=== PATIENT | female | born 1950 | race American Indian/Alaskan Native ===

== ENCOUNTER 2020-07-02 19:34 | Inpatient (IN) | payer MEDICARE ==
--- NOTE | 2020-07-02 22:39 | XRay Report ---
CHEST 2 VIEWS 2220 INDICATION / CLINICAL INFORMATION: Shortness of breath, chills COMPARISON: None available. FINDINGS: SUPPORT DEVICES: None. HEART / MEDIASTINUM: No significant abnormality. LUNGS / PLEURA: Pneumonic type infiltrate in a mostly interstitial pattern is seen in the right lower lobe. Left lung field is clear. No pneumothorax. ADDITIONAL FINDINGS: No significant additional findings. IMPRESSION: Evidence of right lower lobe pneumonia Signer Name: John Krishna MD Signed: 07/02/2020 10:34 PM Workstation Name: [email or web address]
[2020-07-02 23:14] LABS: Basophils % (Auto) 0.3 % (0.0-1.8); Hematocrit 41.7 % (30.3-42.9); Hemoglobin 13.5 gm/dl (10.1-14.3); Lymphocytes # (Auto) 1.6 K/mm3 (1.2-5.4); Lymphocytes % (Auto) 29.6 % (13.4-35.0); Mean Corpuscular HGB Conc 32 % (30-34); Mean Corpuscular Volume 81 fl (79-97); Monocytes # (Auto) 0.4 K/mm3 (0.0-0.8); Monocytes % (Auto) 8.3 % (0.0-7.3); Platelet Count 258 K/mm3 (140-440); Red Blood Count 5.16 M/mm3 (3.65-5.03); Red Cell Distribution Width 16.8 % (13.2-15.2)
[2020-07-02 23:32] LABS: Albumin 3.6 g/dL (3.9-5); Calcium 8.5 mg/dL (8.4-10.2)
[2020-07-03] MEDS ORDERED: cefTRIAXone/NS 2 GM/100 ML 2 GM/100 ML BAG IV ONE (02:54)
--- NOTE | 2020-07-03 03:01 | Emergency Department Report ---
ED Shortness of Breath HPI - General Chief Complaint: Dyspnea/Respdistress Stated Complaint: INDER Time Seen by Provider: 07/03/20 02:52 Source: patient Mode of arrival: Stretcher Limitations: No Limitations - History of Present Illness Initial Comments: 69-year-old obese -[place] female past medical history of diabetes, hypertension, COPD presents emergency department complaining of a 5 to 6-day history of progressively worsening shortness of breath which worsens with activity and exertion but reports no chest pain. Reports no cough no hemoptysis no hematemesis hematochezia has been feeling feverish with chills but no sweats. Reports no nausea, no vomiting reports no diarrhea. Reports no increased urinary frequency or dysuria MD Complaint: shortness of breath -: Gradual Severity: mild Quality: aching Consistency: constant Improves With: nothing Worsens With: exertion Known History Of: COPD, diabetes - Related Data Allergies Allergy/AdvReac Type Severity Reaction Status Date / Time No Known Allergies Allergy Unverified 07/02/20 21:21 ED Review of Systems ROS: Stated complaint: INDER Other details as noted in HPI Comment: All other systems reviewed and negative ED Past Medical Hx - Past Medical History Previous Medical History?: Yes Hx Hypertension: Yes Hx Diabetes: Yes Hx COPD: Yes - Surgical History Past Surgical History?: Yes Additional Surgical History: Tubal . Right knee. Right breast lumpe ctomy - Social History Smoking Status: Former Smoker Substance Use Type: None ED Physical Exam - General Limitations: No Limitations General appearance: alert, in no apparent distress, other (Patient appears to be uncomfortable but not toxic with mild distress noted) - Head Head exam: Present: atraumatic, normocephalic - Eye Eye exam: Present: normal appearance - ENT ENT exam: Present: mucous membranes moist - Neck Neck exam: Present: normal inspection, full ROM - Respiratory Respiratory exam: Present: normal lung sounds bilaterally, decreased breath sounds. Absent: respiratory distress - Cardiovascular Cardiovascular Exam: Present: normal rhythm, tachycardia. Absent: systolic murmur, diastolic murmur, rubs, gallop - GI/Abdominal GI/Abdominal exam: Present: soft, normal bowel sounds. Absent: distended, tenderness, guarding - Extremities Exam Extremities exam: Present: normal inspection - Back Exam Back exam: Present: normal inspection. Absent: CVA tenderness (R), CVA tenderne ss (L) - Neurological Exam Neurological exam: Present: alert, oriented X3, CN II-XII intact, normal gait - Psychiatric Psychiatric exam: Present: normal affect, normal mood - Skin Skin exam: Present: warm, dry, intact, normal color. Absent: rash ED Course Vital Signs 07/02/20 21:09 Temperature 99.0 F Pulse Rate 111 H Respiratory 18 Rate Blood Pressure 131/77 O2 Sat by Pulse 92 Oximetry - Consultations Consultation #1: 07/03/20 03:35 Case was discussed with the hospitalist Dr. Vincent whom had made aware of the x-ray report and exertional. Came back to see the patient plan is for admission hypoxemia ED Medical Decision Making - Lab Data Result diagrams: 07/02/20 22:37 07/02/20 22:37 - Radiology Data Radiology results: report reviewed Referring Physician:MANDO NUGENTPatient Name:YENI GARCIAPatient ID:[id number] of :[id number]:FemaleAccession:[id number] Date:[id number] Status:Finalized Findings [address] [address] XRay Report Signed Patient: YENI GARCIA MR#: [id number] : 1950 Acct:[id number] Age/Sex: 69 / F ADM Date: 07/02/20 Loc: ED Attending Dr: Ordering Physician: MANDO NUGENT MD Date of Service: 07/02/20 Procedure(s): XR chest routine 2V Accession Number(s): [id number] cc: MANDO NUGENT MD Fluoro Time In Minutes: CHEST 2 VIEWS 2220 INDICATION / CLINICAL INFORMATION: Shortness of breath, chills COMPARISON: None available. FINDINGS: SUPPORT DEVICES: None. HEART / MEDIASTINUM: No significant abnormality. LUNGS / PLEURA: Pneumonic type infiltrate in a mostly interstitial pattern is seen in the right lower lobe. Left lung field is clear. No pneumothorax. ADDITIONAL FINDINGS: No significant additional findings. IMPRESSION: Evidence of right lower lobe pneumonia Signer Name: John Krishna MD Signed: 07/02/2020 10:34 PM Workstation Name: [id number] Transcribed By: GJ Dictated By: John Krishna MD Electronically Authenticated By: John Krishna MD Signed Date/Time: 07/02/202233 DD/ 31 TD/TT: - Medical Decision Making This patient presents to the emergency department with fever and lower respiratory symptoms concerning for viral syndrome including flu and COVID-19. Patient has suspicion and is for COVID-19 infection. Differential diagnosis includes other viral causes of lower respiratory symptoms, pneumonia, asthma, bronchitis. Patient is well-appearing with acceptable vitals, lacks comorbidities admission and a reassuring physical examination and is safe to be discharged home nasal swab for COVID testing is recommended. Provide strict return precautions and instructions on self isolation/quarantine and anticipatory guidance. This patient presents with dyspnea most likely secondary to her right upper lobe pneumonia was likely is a secondary viral etiology likely coronavirus. Differential diagnosis includes asthma, bronchitis, pleuritic pulmonary issue, viral syndrome. Presentation not consistent with acute cardiac etiologies to include ACS , CHF, pericardial effusion/tamponade. Presentation not consistent with acute respiratory etiologies to include acute pulmonary embolism ( PERC negative), pneumothorax, asthma, COPD exacerbation, however infectious etiology such as pneumonia has been discovered. The presentation also not consistent with known cardiopulmonary causes to include toxic syndrome, metabolic etiology such as acidemia or electrolyte derangements, sepsis, neurologic causes. Critical care attestation.: If time is entered above; I have spent that time in minutes in the direct care of this critically ill patient, excluding procedure time. ED Disposition Clinical Impression: Hypoxemia, Pneumonia Disposition: OP ADMIT IP TO THIS HOSP Is pt being admited?: Yes Does the pt Need Aspirin: No Condition: Stable Instructions: Bacterial Pneumonia (ED) Referrals: PRIMARY CAREMD [Primary Care Provider] - 3-5 Days
[2020-07-03] MEDS ORDERED: dexAMETHasone 4 MG/ML VIAL IV ONE (03:09)
[2020-07-03] MEDS ORDERED: SODIUM CHLORIDE 0.9% 1000 ML 1,000 ML IV SCH (03:30)
--- NOTE | 2020-07-03 03:33 | History and Physical Report ---
History of Present Illness Date of examination: 07/03/20 Date of admission: 07/03/2020 Chief complaint: Shortness of Breath History of present illness: 39-year-old -[place] female with known history of diabetes mellitus, hypertension and COPD presenting to the emergency room today complaining of shortness of breath which has been ongoing for about 6 days. Shortness of breath is said to worsen with activity. Patient indicates that she had some low-grade fever with chills initially which has since subsided. She denies any chest pain, no headache or dizziness, no diaphoresis, no nausea vomiting, no abdominal pain, no diarrhea, no hematuria or dysuria. Patient denies any sick contacts and no recent travel. Denies any contact with anyone with COVID-19. Patient was tachycardic, tachypneic and slightly hypoxic on minimal exertion upon arrival in the emergency room. Work-up today reveals right lower lobe pneumonia on the chest x-ray. Patient is being admitted for pneumonia. We will also rule out for COVID-19. Past History Past Medical History: COPD, diabetes, hypertension Past Surgical History: Other (Tubal ligation,Right knee surgery,Right breast lumpectomy) Social history: smoking (Former smoker) Medications and Allergies Allergies Allergy/AdvReac Type Severity Reaction Status Date / Time No Known Allergies Allergy Unverified 07/02/20 21:21 Active Meds: Active Medications Azithromycin 500 mg/ Sodium (Chloride) 250 mls @ 250 mls/hr IV ONCE ONE; Protocol Stop: 07/03/20 04:44 Review of Systems Constitutional: no fever, no chills Ears, nose, mouth and throat: no nasal congestion, no sore throat Cardiovascular: no chest pain, no palpitations Respiratory: cough, shortness of breath, no wheezing Gastrointestinal: no abdominal pain, no nausea, no vomiting, no diarrhea Genitourinary Female: no pelvic pain, no flank pain, no dysuria, no hematuria Musculoskeletal: no neck pain, no low back pain Integumentary: no rash, no pruritis Neurological: no headaches, no confusion Psychiatric: no anxiety, no depression Exam - Constitutional Vitals: Temp Pulse Resp BP Pulse Ox 99.0 F 125 H 30 H 131/77 79 L 07/02/20 21:09 07/03/20 03:23 07/03/20 03:23 07/02/20 21:09 07/03/20 03:23 General appearance: Present: no acute distress, well-nourished, obese - EENT Eyes: Present: PERRL, EOM intact. Absent: scleral icterus ENT: hearing intact, clear oral mucosa, dentition normal - Neck Neck: Present: supple, normal ROM - Respiratory Respiratory effort: normal Respiratory: right: diminished - Cardiovascular Rhythm: regular Heart Sounds: Present: S1 & S2. Absent: gallop, systolic murmur, diastolic murmur, rub - Extremities Extremities: no ischemia, pulses intact, pulses symmetrical, No edema, normal temperature, normal color, Full ROM Peripheral Pulses: within normal limits - Abdominal General gastrointestinal: Present: soft, non-tender, non-distended, normal bowel sounds. Absent: mass - Integumentary Integumentary: Present: clear, warm, dry. Absent: rash - Musculoskeletal Musculoskeletal: strength equal bilaterally - Psychiatric Psychiatric: appropriate mood/affect, intact judgment & insight, memory intact, cooperative - Neurologic Neurologic: CNII-XII intact, no focal deficits, moves all extremities Results - Labs CBC & Chem 7: 07/02/20 22:37 07/02/20 22:37 Labs: Abnormal lab results 07/02/20 07/02/20 07/02/20 Range/Units 22:37 22:37 22:37 RBC 5.16 H (3.65-5.03) M/mm3 MCH 26 L (28-32) pg RDW 16.8 H (13.2-15.2) % [facility] % (Auto) 8.3 H (0.0-7.3) % Sodium 134 L (137-145) mmol/L Chloride 94.8 L (98-107) mmol/L Glucose 171 H (65-100) mg/dL POC Glucose (70-105) mg/dL Total Creatine Kinase 384 H (30-135) units/L Albumin 3.6 L (3.9-5) g/dL 07/03/20 Range/Units 03:12 RBC (3.65-5.03) M/mm3 MCH (28-32) pg RDW (13.2-15.2) % [facility] % (Auto) (0.0-7.3) % Sodium (137-145) mmol/L Chloride (98-107) mmol/L Glucose (65-100) mg/dL POC Glucose 166 H (70-105) mg/dL Total Creatine Kinase (30-135) units/L Albumin (3.9-5) g/dL Assessment and Plan - Patient Problems (1) Pneumonia Current Visit: Yes Status: Acute Plan to address problem: Patient placed on empiric IV antibiotics. We will await blood culture results. (2) Diabetes mellitus Current Visit: Yes Status: Acute Plan to address problem: We will monitor Accu-Cheks. (3) Hypoxemia Current Visit: Yes Status: Acute Plan to address problem: Possibly secondary to the underlying pneumonia. Patient placed on oxygen. We will keep O2 saturation greater than equal to 94%. (4) Hypertension Current Visit: Yes Status: Acute Plan to address problem: We will resume routine home medications and monitor vital signs closely. (5) DVT prophylaxis Current Visit: Yes Status: Acute Plan to address problem: Patient placed on subcutaneous Lovenox. (6) Full code status Current Visit: Yes Status: Acute Plan to address problem: Patient is a full code.
[2020-07-03] MEDS ORDERED: AZITHROMYCIN 500 MG in SODIUM CHLORIDE 0.9% 250ML 250 ML IV ONE (03:45)
[2020-07-03] MEDS ORDERED: DEXTROSE 50% IN WATER (25GM) 50 ML SYRINGE IV PRN (03:53)
[2020-07-03] MEDS ORDERED: ACETAMINOPHEN 325 MG TAB PO PRN (03:54)
[2020-07-03] MEDS ORDERED: ONDANSETRON 4 MG/2 ML INJ IV PRN (03:54)
[2020-07-03 05:30] LABS: C-Reactive Protein 9.3 mg/dL (0.00-1.30)
[2020-07-03] MEDS: INSULIN LISPRO 100 UNIT/ML VIAL 3 mL SUB-Q SCH ×4 (08:44→22:58)
--- NOTE | 2020-07-03 16:35 | Event Note ---
Date: 07/03/20 Patient 69-year-old female presents with 1 week history of shortness of breath progressively getting worse associated with some arthralgias myalgias low-grade fever. Work-up in ED patient found to be hypoxic and chest x-ray showed left lower lobe infiltrate consistent with pneumonia. Given patient symptoms and recent contacts increase suspicion for COVID-19 pneumonia. Will admit patient placed on broad-spectrum antibiotics azithromycin Rocephin and start dexamethasone. Follow-up culture data and follow-up COVID-19 serology. Continue supportive care with O2 and respiratory precautions. Nightly hemodynamically stable with 4 L of O2.
[2020-07-03] MEDS: ENOXAPARIN 40 MG/0.4 ML INJ SUB-Q SCH (22:59)
[2020-07-03] MEDS ORDERED: INSULIN LISPRO 100 UNIT/ML SUB-Q ONE (23:00)
[2020-07-04] MEDS ORDERED: ALBUTEROL 8.5 GM MDI INHALATION IH PRN (01:53)
[2020-07-04] MEDS ORDERED: methylPREDNISolone Sod Succinate 40 MG/1 ML INJ IV ONE (02:15)
[2020-07-04 02:51] LABS: ABG Base Excess 3.4 mmol/L (-2.0-3.0); ABG HCO3 27.5 mmol/L (20.0-26.0); ABG Methemoglobin 0.5 % (0.0-1.5); ABG Oxygen Saturation 93.6 % (95.0-99.0); ABG PCO2 39.9 mm Hg; ABG PH 7.456 pH Units (7.350-7.450); ABG PO2 60.7 mm Hg (80.0-90.0)
[2020-07-04] MEDS: INSULIN LISPRO 100 UNIT/ML VIAL 3 mL SUB-Q SCH ×4 (07:30→22:27)
[2020-07-04] MEDS: cefTRIAXone/NS 2 GM/100 ML 2 GM/100 ML BAG IV SCH (11:32)
[2020-07-04] MEDS: AZITHROMYCIN 250 MG TAB PO SCH (11:33)
[2020-07-04] MEDS: DEXAMETHASONE 4 MG TAB PO SCH (11:36)
--- NOTE | 2020-07-04 12:24 | Progress Note ---
Assessment and Plan - Patient Problems (1) Diabetes mellitus Current Visit: Yes Status: Acute Plan to address problem: Patient diabetes suboptimal control. We will add long-acting insulin. Patient on steroids expect to be somewhat high. Will still add long-acting insulin. (2) Hypertension Current Visit: Yes Status: Acute Plan to address problem: Patient currently has optimal control blood pressure. Continue antihypertensives. (3) Pneumonia due to COVID-19 virus Current Visit: Yes Status: Acute Plan to address problem: Patient COVID-19 pneumonia. Remains hypoxic. Patient risk factors include obesity hypoventilation syndrome and sleep apnea. Patient is on CPAP. Was able to wean patient down to 6 L. Will be a slow wean given patient's risk factors as stated above. (4) DVT prophylaxis Current Visit: Yes Status: Acute Plan to address problem: Currently on Lovenox. (5) Full code status Current Visit: Yes Status: Acute (6) Obesity (BMI 30-39.9) Current Visit: Yes Status: Acute Plan to address problem: This increases risk from COVID-19 pneumonia and COVID-19 itself. Patient educat ed on lifestyle changes upon discharge. Subjective Date of service: 07/04/20 Principal diagnosis: COVID-19 pneumonia Interval history: 6 69-year-old -[place] female with known history of diabetes mellitus, hypertension and COPD presenting to the emergency room today complaining of shortness of breath which has been ongoing for about 6 days. Shortness of breath is said to worsen with activity. Patient indicates that she had some low-grade fever with chills initially which has since subsided. She denies any chest pain, no headache or dizziness, no diaphoresis, no nausea vomiting, no abdominal pain, no diarrhea, no hematuria or dysuria. Patient denies any sick contacts and no recent travel. Denies any contact with anyone with COVID-19. Patient was tachycardic, tachypneic and slightly hypoxic on minimal exertion upon arrival in the emergency room. Work-up today reveals right lower lobe pneumonia on the chest x-ray. Patient is being admitted for pneumonia. We will also rule out for COVID-19. 07/04-patient was on CPAP last night. Now weaned down to 6 L of O2. We closely monitor patient's oxygen saturations with 6 L. Otherwise patient resting comfortably now in bed in prone position. Objective - Constitutional Vitals: Vital Signs - 12hr 07/04/20 07/04/20 07/04/20 00:45 01:27 01:30 Temperature 98.9 F Pulse Rate 99 H 98 H 97 H Respiratory 18 22 20 Rate Blood Pressure 126/78 Blood Pressure 139/89 [Left] O2 Sat by Pulse 95 89 92 Oximetry 07/04/20 07/04/20 07/04/20 04:31 05:10 05:59 Temperature 99.9 F H Pulse Rate 79 101 H Respiratory 28 H 30 H 22 Rate Blood Pressure 123/57 Blood Pressure [Left] O2 Sat by Pulse 97 94 Oximetry 07/04/20 10:00 Temperature Pulse Rate Respiratory Rate Blood Pressure Blood Pressure [Left] O2 Sat by Pulse 95 Oximetry General appearance: Present: no acute distress, well-nourished - EENT Eyes: PERRL, EOM intact ENT: hearing intact, clear oral mucosa Ears: bilateral: normal - Neck Neck: supple, normal ROM - Respiratory Respiratory effort: normal Respiratory: bilateral: diminished - Breasts Breasts: normal - Cardiovascular Rhythm: regular Heart Sounds: Present: S1 & S2. Absent: gallop, rub Extremities: pulses intact, No edema, normal color, Full ROM - Gastrointestinal General gastrointestinal: Present: soft, non-tender, non-distended, other (Obese) - Genitourinary Female genitourinary: normal - Integumentary Integumentary: clear, warm, dry - Musculoskeletal Musculoskeletal: 1, strength equal bilaterally - Neurologic Neurologic: moves all extremities - Psychiatric Psychiatric: memory intact, appropriate mood/affect, intact judgment & insight - Labs CBC & Chem 7: 07/02/20 22:37 07/03/20 03:14 Labs: Abnormal lab results 07/03/20 07/03/20 07/03/20 Range/Units 03:12 10:35 16:46 ABG pH (7.350-7.450) pH Units ABG pO2 (80.0-90.0) mm Hg ABG HCO3 (20.0-26.0) mmol/L ABG O2 Saturation (95.0-99.0) % ABG Base Excess (-2.0-3.0) mmol/L Oxyhemoglobin (95.0-99.0) % POC Glucose 166 H 188 H (70-105) mg/dL Coronavirus (PCR) Positive A (Negative) 07/03/20 07/04/20 07/04/20 Range/Units 22:33 02:44 11:39 ABG pH 7.456 H (7.350-7.450) pH Units ABG pO2 60.7 L (80.0-90.0) mm Hg ABG HCO3 27.5 H (20.0-26.0) mmol/L ABG O2 Saturation 93.6 L (95.0-99.0) % ABG Base Excess 3.4 H (-2.0-3.0) mmol/L Oxyhemoglobin 91.6 L (95.0-99.0) % POC Glucose 162 H 208 H (70-105) mg/dL Coronavirus (PCR) (Negative)
[2020-07-04] MEDS: NYSTATIN POWDER 15 GM TP SCH ×3 (12:50→22:29)
[2020-07-04] MEDS ORDERED: REMDESIVIR 100 MG VIAL IV ONE (14:00)
[2020-07-04] MEDS ORDERED: REMDESIVIR 200 MG in SODIUM CHLORIDE 0.9% 250ML 250 ML IV ONE (14:00)
[2020-07-04] MEDS: SODIUM CHLORIDE 0.9% 50 ML IVPB IV SCH ×2 (14:23→22:26)
[2020-07-04 14:38] LABS: C-Reactive Protein 4.8 mg/dL (0.00-1.30)
[2020-07-04] MEDS: INSULIN GLARGINE 100 UNITS/ML SUB-Q SCH (22:26)
[2020-07-04] MEDS: ENOXAPARIN 40 MG/0.4 ML INJ SUB-Q SCH (22:28)
[2020-07-05] MEDS: INSULIN LISPRO 100 UNIT/ML VIAL 3 mL SUB-Q SCH ×4 (07:30→22:39)
[2020-07-05] MEDS: cefTRIAXone/NS 2 GM/100 ML 2 GM/100 ML BAG IV SCH (10:03)
[2020-07-05] MEDS: NYSTATIN POWDER 15 GM TP SCH ×2 (10:04→21:40)
[2020-07-05] MEDS: AZITHROMYCIN 250 MG TAB PO SCH (10:04)
[2020-07-05] MEDS: DEXAMETHASONE 4 MG TAB PO SCH (10:04)
--- NOTE | 2020-07-05 10:08 | Progress Note ---
Assessment and Plan - Patient Problems (1) Diabetes mellitus Current Visit: Yes Status: Acute Plan to address problem: Patient diabetes suboptimal control. We will add long-acting insulin. Patient on steroids expect to be somewhat high. Will still add long-acting insulin. Much better with the addition of Lantus. Continue present management. (2) Hypertension Current Visit: Yes Status: Acute Plan to address problem: Patient currently has optimal control blood pressure. Continue antihypertensives. (3) Pneumonia due to COVID-19 virus Current Visit: Yes Status: Acute Plan to address problem: Patient's inflammatory markers have improved however hypoxia has not improved. This ensures me that patient had pulmonary complications prior to developing Cov id. This places patient more at risk with her sleep apnea, obesity hypoventilation syndrome. Will require O2 after discharge. Be more conservative with discharging. (4) DVT prophylaxis Current Visit: Yes Status: Acute Plan to address problem: Currently on Lovenox. (5) Full code status Current Visit: Yes Status: Acute (6) Obesity (BMI 30-39.9) Current Visit: Yes Status: Acute Plan to address problem: This increases risk from COVID-19 pneumonia and COVID-19 itself. Patient educated on lifestyle changes upon discharge. Subjective Date of service: 07/05/20 Principal diagnosis: COVID-19 pneumonia Interval history: 6 69-year-old -[place] female with known history of diabetes mellitus, hypertension and COPD presenting to the emergency room today complaining of shortness of breath which has been ongoing for about 6 days. Shortness of breath is said to worsen with activity. Patient indicates that she had some low-grade fever with chills initially which has since subsided. She denies any chest pain, no headache or dizziness, no diaphoresis, no nausea vomiting, no abdominal pain, no diarrhea, no hematuria or dysuria. Patient denies any sick contacts and no recent travel. Denies any contact with anyone with COVID-19. Patient was tachycardic, tachypneic and slightly hypoxic on minimal exertion upon arrival in the emergency room. Work-up today reveals right lower lobe pneumonia on the chest x-ray. Patient is being admitted for pneumonia. We will also rule out for COVID-19. 07/04-patient was on CPAP last night. Now weaned down to 6 L of O2. We closely monitor patient's oxygen saturations with 6 L. Otherwise patient resting comfortably now in bed in prone position. 07/05-patient appears to be doing worse than yesterday. Still able to wean down to 6 L however patient became more hypoxic. Overall conditions of morbid obesity, sleep apnea, obesity hypoventilation syndrome. Place patient at extreme risk. Patient is aware of evaluation all questions and concerns answered. Patient will require oxygen upon discharge. History patient was complained of shortness of breath even prior to Covid. Will most likely require home O2 prior to developing Covid. Objective - Constitutional Vitals: Vital Signs - 12hr 07/05/20 07/05/20 07/05/20 00:26 01:00 05:37 Temperature 98.9 F Pulse Rate 86 Respiratory 24 Rate Blood Pressure 110/67 145/89 O2 Sat by Pulse 94 97 Oximetry 07/05/20 07/05/20 07/05/20 05:46 06:01 06:16 Temperature Pulse Rate Respiratory Rate Blood Pressure 148/88 155/89 133/96 O2 Sat by Pulse Oximetry 07/05/20 07:01 Temperature Pulse Rate Respiratory Rate Blood Pressure 136/89 O2 Sat by Pulse Oximetry General appearance: Present: mild distress, well-nourished - EENT Eyes: PERRL, EOM intact ENT: hearing intact, clear oral mucosa Ears: bilateral: normal - Neck Neck: supple, normal ROM - Respiratory Respiratory effort: normal Respiratory: bilateral: CTA - Breasts Breasts: normal - Cardiovascular Rhythm: regular Heart Sounds: Present: S1 & S2. Absent: gallop, rub Extremities: pulses intact, No edema, normal color, Full ROM Extremity abnormal: other (Obese obese) - Gastrointestinal General gastrointestinal: Present: soft, non-tender, non-distended, normal bowel sounds, other - Genitourinary Female genitourinary: normal - Integumentary Integumentary: clear, warm, dry - Musculoskeletal Musculoskeletal: 1, strength equal bilaterally - Neurologic Neurologic: moves all extremities - Psychiatric Psychiatric: memory intact, appropriate mood/affect, intact judgment & insight - Labs CBC & Chem 7: 07/02/20 22:37 07/04/20 13:55 Labs: Abnormal lab results 07/04/20 07/04/20 07/04/20 Range/Units 11:39 13:55 13:55 D-Dimer 397.35 H (0-234) ng/mlDDU Glucose 188 H (65-100) mg/dL POC Glucose 208 H (70-105) mg/dL Ferritin (10.0-200.0) ng/mL Lactate Dehydrogenase 349 H (91-180) units/L C-Reactive Protein 4.80 H (0.00-1.30) mg/dL 07/04/20 07/04/20 07/04/20 Range/Units 13:55 17:17 22:01 D-Dimer (0-234) ng/mlDDU Glucose (65-100) mg/dL POC Glucose 139 H 143 H (70-105) mg/dL Ferritin 1691.0 H (10.0-200.0) ng/mL Lactate Dehydrogenase (91-180) units/L C-Reactive Protein (0.00-1.30) mg/dL
[2020-07-05] MEDS: SODIUM CHLORIDE 0.9% 50 ML IVPB IV SCH (20:50)
[2020-07-05] MEDS: REMDESIVIR 100 MG in SODIUM CHLORIDE 0.9% 250ML 250 ML IV SCH (20:50)
[2020-07-05] MEDS: ENOXAPARIN 40 MG/0.4 ML INJ SUB-Q SCH (21:39)
[2020-07-05] MEDS: INSULIN GLARGINE 100 UNITS/ML SUB-Q SCH (22:37)
[2020-07-06] MEDS: INSULIN LISPRO 100 UNIT/ML VIAL 3 mL SUB-Q SCH ×4 (07:30→23:00)
[2020-07-06] MEDS: cefTRIAXone/NS 2 GM/100 ML 2 GM/100 ML BAG IV SCH (10:03)
[2020-07-06] MEDS: AZITHROMYCIN 250 MG TAB PO SCH (10:03)
[2020-07-06] MEDS: NYSTATIN POWDER 15 GM TP SCH ×2 (10:04→23:10)
[2020-07-06] MEDS: DEXAMETHASONE 4 MG TAB PO SCH (10:06)
--- NOTE | 2020-07-06 12:11 | Progress Note ---
Assessment and Plan Assessment and plan: -- Diabetes mellitus Current Visit: Yes Status: Acute Plan to address problem: Accu-Chek sliding scale coverage ADA diet Long-acting insulin as needed, check A1c Diabetic education, diabetic diet counseling Monitor closely and adjust management as needed -- Hypertension Current Visit: Yes Status: Acute Plan to address problem: Patient currently has optimal control blood pressure. Continue antihypertensives. -- Pneumonia due to COVID-19 virus Current Visit: Yes Status: Acute Plan to address problem: Patient's inflammatory markers have improved however hypoxia has not improved. This ensures me that patient had pulmonary complications prior to developing Covid. This places patient more at risk with her sleep apnea, obesity hypoventilation syndrome. Will require O2 after discharge. Be more conservative with discharging. --DVT prophylaxis Current Visit: Yes Status: Acute Plan to address problem: Currently on Lovenox. -- Full code status Current Visit: Yes Status: Acute -- Obesity (BMI 30-39.9) Current Visit: Yes Status: Acute Plan to address problem: This increases risk from COVID-19 pneumonia and COVID-19 itself. Patient educated on lifestyle changes upon discharge. Plan of care reviewed with the patient and her nurse Hospitalist Physical - Constitutional Vitals: Temp Pulse Resp BP Pulse Ox 97.9 F 120 H 30 H 167/108 92 07/06/20 05:24 07/06/20 08:46 07/06/20 08:46 07/06/20 05:24 07/06/20 08:46 General appearance: Present: mild distress, well-nourished, obese (Morbidly obese) - EENT Eyes: Present: PERRL, EOM intact - Neck Neck: Present: supple, normal ROM - Respiratory Respiratory effort: normal Respiratory: bilateral: diminished, negative: rales, rhonchi, wheezing - Cardiovascular Rhythm: regular Heart Sounds: Present: S1 & S2 - Extremities Extremities: no ischemia, No edema - Abdominal General gastrointestinal: soft, non-tender, non-distended, normal bowel sounds - Integumentary Integumentary: Present: clear, warm - Psychiatric Psychiatric: appropriate mood/affect, cooperative - Neurologic Neurologic: moves all extremities Results - Labs CBC & Chem 7: 07/02/20 22:37 07/04/20 13:55 Labs: Laboratory Last Values WBC 5.3 K/mm3 (4.5-11.0) 07/02/20 22:37 RBC 5.16 M/mm3 (3.65-5.03) H 07/02/20 22:37 Hgb 13.5 gm/dl (10.1-14.3) 07/02/20 22:37 Hct 41.7 % (30.3-42.9) 07/02/20 22:37 MCV 81 fl (79-97) 07/02/20 22:37 MCH 26 pg (28-32) L 07/02/20 22:37 MCHC 32 % (30-34) 07/02/20 22:37 RDW 16.8 % (13.2-15.2) H 07/02/20 22:37 Plt Count 258 K/mm3 (140-440) 07/02/20 22:37 Lymph % (Auto) 29.6 % (13.4-35.0) 07/02/20 22:37 [place] % (Auto) 8.3 % (0.0-7.3) H 07/02/20 22:37 Eos % (Auto) 0.0 % (0.0-4.3) 07/02/20 22:37 Baso % (Auto) 0.3 % (0.0-1.8) 07/02/20 22:37 Lymph # (Auto) 1.6 K/mm3 (1.2-5.4) 07/02/20 22:37 [place] # (Auto) 0.4 K/mm3 (0.0-0.8) 07/02/20 22:37 Eos # (Auto) 0.0 K/mm3 (0.0-0.4) 07/02/20 22:37 Baso # (Auto) 0.0 K/mm3 (0.0-0.1) 07/02/20 22:37 Seg Neutrophils % 61.8 % (40.0-70.0) 07/02/20 22:37 Seg Neutrophils # 3.3 K/mm3 (1.8-7.7) 07/02/20 22:37 D-Dimer 397.35 ng/mlDDU (0-234) H 07/04/20 13:55 ABG pH 7.456 pH Units (7.350-7.450) H 07/04/20 02:44 ABG pCO2 39.9 mm Hg 07/04/20 02:44 ABG pO2 60.7 mm Hg (80.0-90.0) L 07/04/20 02:44 ABG HCO3 27.5 mmol/L (20.0-26.0) H 07/04/20 02:44 ABG O2 Saturation 93.6 % (95.0-99.0) L 07/04/20 02:44 ABG O2 Content 16.4 (0.0-44) 07/04/20 02:44 ABG Base Excess 3.4 mmol/L (-2.0-3.0) H 07/04/20 02:44 ABG Hemoglobin 12.7 gm/dl (12.0-16.0) 07/04/20 02:44 ABG Carboxyhemoglobin 1.7 % (0.0-5.0) 07/04/20 02:44 ABG Methemoglobin 0.5 % (0.0-1.5) 07/04/20 02:44 Oxyhemoglobin 91.6 % (95.0-99.0) L 07/04/20 02:44 FiO2 32 % 07/04/20 02:44 Sodium 134 mmol/L (137-145) L 07/02/20 22:37 Potassium 4.4 mmol/L (3.6-5.0) 07/02/20 22:37 Chloride 94.8 mmol/L (98-107) L 07/02/20 22:37 Carbon Dioxide 26 mmol/L (22-30) 07/02/20 22:37 Anion Gap 18 mmol/L 07/02/20 22:37 BUN 15 mg/dL (7-17) 07/02/20 22:37 Creatinine 1.2 mg/dL (0.6-1.2) 07/02/20 22:37 Estimated GFR 54 ml/min 07/02/20 22:37 BUN/Creatinine Ratio 13 % 07/02/20 22:37 Glucose 188 mg/dL (65-100) H 07/04/20 13:55 POC Glucose 106 mg/dL (70-105) H 07/06/20 11:49 Calcium 8.5 mg/dL (8.4-10.2) 07/02/20 22:37 Magnesium 1.70 mg/dL (1.7-2.3) 07/02/20 22:37 Ferritin 1691.0 ng/mL (10.0-200.0) H 07/04/20 13:55 Total Bilirubin 0.50 mg/dL (0.1-1.2) 07/02/20 22:37 AST 39 units/L (5-40) 07/02/20 22:37 ALT 27 units/L (7-56) 07/02/20 22:37 Alkaline Phosphatase 78 units/L (35-129) 07/02/20 22:37 Lactate Dehydrogenase 349 units/L (91-180) H 07/04/20 13:55 Total Creatine Kinase 384 units/L (30-135) H 07/02/20 22:37 C-Reactive Protein 4.80 mg/dL (0.00-1.30) H 07/04/20 13:55 Total Protein 7.3 g/dL (6.3-8.2) 07/02/20 22:37 Albumin 3.6 g/dL (3.9-5) L 07/02/20 22:37 Albumin/Globulin Ratio 1.0 % 07/02/20 22:37 Procalcitonin < 0.05 ng/mL (<0.15) 07/04/20 13:55 Coronavirus (PCR) Positive (Negative) A 07/03/20 10:35 Castaneda/IV: Voiding Method Bedpan IV Catheter Type [Right Hand] INT / Saline Lock IV Catheter Type [Left Hand] INT / Saline Lock Active Medications - Current Medications Current Medications: Generic Name Dose Route Start Last Admin Trade Name Freq PRN Reason Stop Dose Admin Acetaminophen 650 mg 07/03/20 03:54 Acetaminophen 325 Mg Tab PO Q4H PRN Pain MILD(1-3)/Fever >100.5/REDMOND Albuterol 2 puff 07/06/20 10:00 Albuterol 8.5 Gm Mdi Inhalation IH BIDRT KRISTEN Azithromycin 500 mg 07/04/20 11:00 07/06/20 10:03 Azithromycin 250 Mg Tab PO 07/07/20 10:01 500 mg QDAY KRISTEN Administration Dexamethasone 6 mg 07/04/20 11:00 07/06/20 10:06 Dexamethasone 4 Mg Tab PO 07/12/20 10:01 6 mg DAILY KRISTEN Administration Dextrose 0 ml 07/03/20 03:53 Dextrose 50% In Water (25gm) 50 Ml Syringe IV Q30MIN PRN Hypoglycemia Protocol Enoxaparin Sodium 40 mg 07/03/20 22:00 07/05/20 21:39 Enoxaparin 40 Mg/0.4 Ml Inj SUB-Q 40 mg QDAY@2200 KRISTEN Administration Protocol Ceftriaxone Sodium 2 gm in 100 mls @ 200 mls/hr 07/04/20 11:00 07/06/20 10:03 Rocephin/Ns 2 Gm/100 Ml IV 200 mls/hr Q24HR KRISTEN Administration Protocol REMDESIVIR 100 mg/ Sodium 250 mls @ 500 mls/hr 07/05/20 21:00 07/05/20 20:50 Chloride IV 07/08/20 21:29 500 mls/hr Q24HR@2100 KRISTEN Administration Insulin Glargine 10 units 07/04/20 22:00 07/05/20 22:37 Insulin Glargine 100 Units/Ml SUB-Q 10 units QHS KRISTEN Administration Insulin Human Lispro 0 unit 07/03/20 07:30 07/06/20 07:30 Insulin Lispro 100 Unit/Ml Vial 3 Ml SUB-Q Not Given ACHS [facility] Protocol Nystatin 1 applic 07/03/20 15:00 07/06/20 10:04 Nystatin Powder 15 Gm TP 1 applic BID KRISTEN Administration Ondansetron HCl 4 mg 07/03/20 03:54 Ondansetron 4 Mg/2 Ml Inj IV Q8H PRN Nausea And Vomiting Sodium Chloride 10 ml 07/03/20 10:00 07/06/20 10:03 Sodium Chloride 0.9% 10 Ml Flush Syringe IV 10 ml BID KRISTEN Administration Sodium Chloride 10 ml 07/03/20 03:54 Sodium Chloride 0.9% 10 Ml Flush Syringe IV PRN PRN LINE FLUSH Sodium Chloride 50 ml 07/04/20 14:00 07/05/20 20:50 Sodium Chloride 0.9% 50 Ml Ivpb IV 07/07/20 21:01 50 ml Q24HR@2100 KRISTEN Administration Nutrition/Malnutrition Assess - Dietary Evaluation Nutrition/Malnutrition Findings: Nutrition Notes Start: 07/03/20 10:41 Freq: Status: Active Protocol: Document 07/03/20 10:41 KRYSTINA (Rec: 07/03/20 10:44 KRYSTINA [id number]) Nutrition Notes Need for Assessment generated from: MD Order Initial or Follow up Brief Note Current Diagnosis COPD,Diabetes,Hypertension Other Pertinent Diagnosis pneumonia Current Diet Regular Subjective/Other Information MD order for diet education. Pt on hold in ED. Nutrition Intervention Change Diet Order: Cardiac, Consistent CHO Follow-Up By: 07/09/20 Additional Comments FU for diet education
[2020-07-06] MEDS: ALBUTEROL 8.5 GM MDI INHALATION IH SCH ×2 (14:59→22:55)
[2020-07-06] MEDS: SODIUM CHLORIDE 0.9% 50 ML IVPB IV SCH (22:56)
[2020-07-06] MEDS: REMDESIVIR 100 MG in SODIUM CHLORIDE 0.9% 250ML 250 ML IV SCH (22:56)
[2020-07-06] MEDS: ENOXAPARIN 40 MG/0.4 ML INJ SUB-Q SCH (22:57)
[2020-07-06] MEDS: INSULIN GLARGINE 100 UNITS/ML SUB-Q SCH (22:57)
[2020-07-07 06:42] LABS: Alanine Aminotransferase 34 units/L (7-56); Albumin 3.2 g/dL (3.9-5); BUN/Creatinine Ratio 18; Blood Urea Nitrogen 11 mg/dL (7-17); Calcium 8.5 mg/dL (8.4-10.2); Hemolysis Index 2
[2020-07-07] MEDS: INSULIN LISPRO 100 UNIT/ML VIAL 3 mL SUB-Q SCH ×4 (07:30→21:33)
[2020-07-07] MEDS: DEXAMETHASONE 4 MG TAB PO SCH (09:46)
[2020-07-07] MEDS: AZITHROMYCIN 250 MG TAB PO SCH (09:47)
[2020-07-07] MEDS: cefTRIAXone/NS 2 GM/100 ML 2 GM/100 ML BAG IV SCH (09:47)
[2020-07-07] MEDS: NYSTATIN POWDER 15 GM TP SCH ×2 (09:48→21:06)
--- NOTE | 2020-07-07 10:56 | Progress Note ---
Assessment and Plan Assessment and plan: -- Pneumonia due to COVID-19 virus Current Visit: Yes Status: Acute Plan to address problem: Contact and droplet isolation Continue dexamethasone for total 10 days Continue remdesivir complete 4 doses Prone position as tolerated Closely monitor inflammatory markers ID consult, home oxygen evaluation Discharge planning when medically stable Patient is severely hypoxemic requiring high flow oxygen Consult pulmonary --Severe hypoxemia; secondary to pneumonia due to Covid Oxygen titrate O2 sats more than 90%, on high flow oxygen 30L /100 %/93 O2sat Nebulizers, prone position, pulmonary consult --Type II diabetes mellitus Current Visit: Yes Status: Acute Plan to address problem: Accu-Chek sliding scale coverage ADA diet Long-acting insulin as needed, check A1c Diabetic education, diabetic diet counseling Monitor closely and adjust management as needed -- Hypertension Current Visit: Yes Status: Acute Plan to address problem: Patient currently has optimal control blood pressure. Continue antihypertensives. --DVT prophylaxis Current Visit: Yes Status: Acute Plan to address problem: Currently on Lovenox. -- Full code status Current Visit: Yes Status: Acute --Morbid obesity (BMI 48.9) Current Visit: Yes Status: Acute Plan to address problem: This increases risk from COVID-19 pneumonia and COVID-19 itself. Patient educated on lifestyle changes upon discharge. Plan of care reviewed with the patient and her nurse Patient is morbidly obese , severe COVID-19 sepsis ,critically ill In severe distress requiring high flow oxygen, very poor prognosis History Interval history: I have seen and examined the patient at the bedside Patient feels slightly better On high flow oxygen and BiPAP Vital signs noted Patient is in mild distress Hospitalist Physical - Constitutional Vitals: Temp Pulse Resp BP Pulse Ox 98.2 F 94 H 16 143/85 93 07/07/20 04:58 07/07/20 04:58 07/07/20 04:58 07/07/20 04:58 07/07/20 09:12 General appearance: Present: mild distress, well-nourished, obese (Morbidly obese) - EENT Eyes: Present: PERRL, EOM intact - Neck Neck: Present: supple, normal ROM - Respiratory Respiratory effort: normal Respiratory: bilateral: diminished, rhonchi, negative: rales, wheezing - Cardiovascular Rhythm: regular Heart Sounds: Present: S1 & S2 - Extremities Extremities: no ischemia, No edema - Abdominal General gastrointestinal: soft, non-tender, non-distended, normal bowel sounds - Integumentary Integumentary: Present: clear, warm - Psychiatric Psychiatric: appropriate mood/affect, cooperative - Neurologic Neurologic: CNII-XII intact, moves all extremities Results - Labs CBC & Chem 7: 07/02/20 22:37 07/08/20 05:16 Labs: Laboratory Last Values WBC 5.3 K/mm3 (4.5-11.0) 07/02/20 22:37 RBC 5.16 M/mm3 (3.65-5.03) H 07/02/20 22:37 Hgb 13.5 gm/dl (10.1-14.3) 07/02/20 22:37 Hct 41.7 % (30.3-42.9) 07/02/20 22:37 MCV 81 fl (79-97) 07/02/20 22:37 MCH 26 pg (28-32) L 07/02/20 22:37 MCHC 32 % (30-34) 07/02/20 22:37 RDW 16.8 % (13.2-15.2) H 07/02/20 22:37 Plt Count 258 K/mm3 (140-440) 07/02/20 22:37 Lymph % (Auto) 29.6 % (13.4-35.0) 07/02/20 22:37 [place] % (Auto) 8.3 % (0.0-7.3) H 07/02/20 22:37 Eos % (Auto) 0.0 % (0.0-4.3) 07/02/20 22:37 Baso % (Auto) 0.3 % (0.0-1.8) 07/02/20 22:37 Lymph # (Auto) 1.6 K/mm3 (1.2-5.4) 07/02/20 22:37 [place] # (Auto) 0.4 K/mm3 (0.0-0.8) 07/02/20 22:37 Eos # (Auto) 0.0 K/mm3 (0.0-0.4) 07/02/20 22:37 Baso # (Auto) 0.0 K/mm3 (0.0-0.1) 07/02/20 22:37 Seg Neutrophils % 61.8 % (40.0-70.0) 07/02/20 22:37 Seg Neutrophils # 3.3 K/mm3 (1.8-7.7) 07/02/20 22:37 D-Dimer 397.35 ng/mlDDU (0-234) H 07/04/20 13:55 ABG pH 7.456 pH Units (7.350-7.450) H 07/04/20 02:44 ABG pCO2 39.9 mm Hg 07/04/20 02:44 ABG pO2 60.7 mm Hg (80.0-90.0) L 07/04/20 02:44 ABG HCO3 27.5 mmol/L (20.0-26.0) H 07/04/20 02:44 ABG O2 Saturation 93.6 % (95.0-99.0) L 07/04/20 02:44 ABG O2 Content 16.4 (0.0-44) 07/04/20 02:44 ABG Base Excess 3.4 mmol/L (-2.0-3.0) H 07/04/20 02:44 ABG Hemoglobin 12.7 gm/dl (12.0-16.0) 07/04/20 02:44 ABG Carboxyhemoglobin 1.7 % (0.0-5.0) 07/04/20 02:44 ABG Methemoglobin 0.5 % (0.0-1.5) 07/04/20 02:44 Oxyhemoglobin 91.6 % (95.0-99.0) L 07/04/20 02:44 FiO2 32 % 07/04/20 02:44 Sodium 138 mmol/L (137-145) 07/07/20 05:19 Potassium 4.4 mmol/L (3.6-5.0) 07/07/20 05:19 Chloride 99.2 mmol/L (98-107) 07/07/20 05:19 Carbon Dioxide 31 mmol/L (22-30) H 07/07/20 05:19 Anion Gap 12 mmol/L 07/07/20 05:19 BUN 11 mg/dL (7-17) 07/07/20 05:19 Creatinine 0.6 mg/dL (0.6-1.2) 07/07/20 05:19 Estimated GFR > 60 ml/min 07/07/20 05:19 BUN/Creatinine Ratio 18 % 07/07/20 05:19 Glucose 122 mg/dL (65-100) H 07/07/20 05:19 POC Glucose 84 mg/dL (70-105) 07/07/20 07:44 Calcium 8.5 mg/dL (8.4-10.2) 07/07/20 05:19 Magnesium 1.70 mg/dL (1.7-2.3) 07/02/20 22:37 Ferritin 1691.0 ng/mL (10.0-200.0) H 07/04/20 13:55 Total Bilirubin 0.40 mg/dL (0.1-1.2) 07/07/20 05:19 AST 38 units/L (5-40) 07/07/20 05:19 ALT 34 units/L (7-56) 07/07/20 05:19 Alkaline Phosphatase 74 units/L (35-129) 07/07/20 05:19 Lactate Dehydrogenase 349 units/L (91-180) H 07/04/20 13:55 Total Creatine Kinase 384 units/L (30-135) H 07/02/20 22:37 C-Reactive Protein 4.80 mg/dL (0.00-1.30) H 07/04/20 13:55 Total Protein 6.8 g/dL (6.3-8.2) 07/07/20 05:19 Albumin 3.2 g/dL (3.9-5) L 07/07/20 05:19 Albumin/Globulin Ratio 0.9 % 07/07/20 05:19 Procalcitonin < 0.05 ng/mL (<0.15) 07/04/20 13:55 Coronavirus (PCR) Positive (Negative) A 07/03/20 10:35 Castaneda/IV: Voiding Method Bedside Commode IV Catheter Type [Right Hand] INT / Saline Lock IV Catheter Type [Left Hand] INT / Saline Lock Active Medications - Current Medications Current Medications: Generic Name Dose Route Start Last Admin Trade Name Freq PRN Reason Stop Dose Admin Acetaminophen 650 mg 07/03/20 03:54 Acetaminophen 325 Mg Tab PO Q4H PRN Pain MILD(1-3)/Fever >100.5/REDMOND Albuterol 2 puff 07/06/20 10:00 07/06/20 22:55 Albuterol 8.5 Gm Mdi Inhalation IH 2 puff BIDRT KRISTEN Administration Dexamethasone 6 mg 07/04/20 11:00 07/07/20 09:46 Dexamethasone 4 Mg Tab PO 07/12/20 10:01 6 mg DAILY KRISTEN Administration Dextrose 0 ml 07/03/20 03:53 Dextrose 50% In Water (25gm) 50 Ml Syringe IV Q30MIN PRN Hypoglycemia Protocol Enoxaparin Sodium 40 mg 07/03/20 22:00 07/06/20 22:57 Enoxaparin 40 Mg/0.4 Ml Inj SUB-Q 40 mg QDAY@2200 KRISTEN Administration Protocol REMDESIVIR 100 mg/ Sodium 250 mls @ 500 mls/hr 07/05/20 21:00 07/06/20 22:56 Chloride IV 07/08/20 21:29 500 mls/hr Q24HR@2100 KRISTEN Administration Insulin Glargine 10 units 07/04/20 22:00 07/06/20 22:57 Insulin Glargine 100 Units/Ml SUB-Q 10 units QHS KRISTEN Administration Insulin Human Lispro 0 unit 07/03/20 07:30 07/07/20 07:30 Insulin Lispro 100 Unit/Ml Vial 3 Ml SUB-Q Not Given ACHS [facility] Protocol Nystatin 1 applic 07/03/20 15:00 07/07/20 09:48 Nystatin Powder 15 Gm TP 1 applic BID KRISTEN Administration Ondansetron HCl 4 mg 07/03/20 03:54 Ondansetron 4 Mg/2 Ml Inj IV Q8H PRN Nausea And Vomiting Sodium Chloride 10 ml 07/03/20 10:00 07/07/20 09:47 Sodium Chloride 0.9% 10 Ml Flush Syringe IV 10 ml BID KRISTEN Administration Sodium Chloride 10 ml 07/03/20 03:54 Sodium Chloride 0.9% 10 Ml Flush Syringe IV PRN PRN LINE FLUSH Sodium Chloride 50 ml 07/04/20 14:00 07/06/20 22:56 Sodium Chloride 0.9% 50 Ml Ivpb IV 07/07/20 21:01 50 ml Q24HR@2100 KRISTEN Administration Nutrition/Malnutrition Assess - Dietary Evaluation Nutrition/Malnutrition Findings: Nutrition Notes Start: 07/03/20 10:41 Freq: Status: Active Protocol: Document 07/03/20 10:41 KRYSTINA (Rec: 07/03/20 10:44 KRYSTINA [id number]) Nutrition Notes Need for Assessment generated from: MD Order Initial or Follow up Brief Note Current Diagnosis COPD,Diabetes,Hypertension Other Pertinent Diagnosis pneumonia Current Diet Regular Subjective/Other Information MD order for diet education. Pt on hold in ED. Nutrition Intervention Change Diet Order: Cardiac, Consistent CHO Follow-Up By: 07/09/20 Additional Comments FU for diet education
[2020-07-07] MEDS: ALBUTEROL 8.5 GM MDI INHALATION IH SCH ×2 (14:14→21:02)
[2020-07-07] MEDS: SODIUM CHLORIDE 0.9% 50 ML IVPB IV SCH (21:03)
[2020-07-07] MEDS: REMDESIVIR 100 MG in SODIUM CHLORIDE 0.9% 250ML 250 ML IV SCH (21:03)
[2020-07-07] MEDS: ENOXAPARIN 40 MG/0.4 ML INJ SUB-Q SCH (21:04)
[2020-07-07] MEDS: INSULIN GLARGINE 100 UNITS/ML SUB-Q SCH (21:33)
[2020-07-08 06:23] LABS: Alanine Aminotransferase 29 units/L (7-56); Albumin 3.2 g/dL (3.9-5); Blood Urea Nitrogen 10 mg/dL (7-17); Calcium 8.8 mg/dL (8.4-10.2); Hemolysis Index 5
[2020-07-08 06:27] LABS: BUN/Creatinine Ratio 17
[2020-07-08] MEDS: INSULIN LISPRO 100 UNIT/ML VIAL 3 mL SUB-Q SCH ×4 (07:30→22:40)
[2020-07-08] MEDS: ALBUTEROL 8.5 GM MDI INHALATION IH SCH ×2 (08:48→21:54)
[2020-07-08] MEDS: DEXAMETHASONE 4 MG TAB PO SCH (09:21)
[2020-07-08] MEDS: NYSTATIN POWDER 15 GM TP SCH ×2 (12:44→22:42)
[2020-07-08 16:31] LABS: C-Reactive Protein 5.1 mg/dL (0.00-1.30)
--- NOTE | 2020-07-08 18:40 | Progress Note ---
Assessment and Plan Assessment and plan: --Severe hypoxemia; secondary to pneumonia due to Covid Oxygen titrate O2 sats more than 90%, on high flow oxygen 30L /100 %/93 O2sat Nebulizers, prone position, pulmonary consulted -- Pneumonia due to COVID-19 virus Current Visit: Yes Status: Acute Plan to address problem: Contact and droplet isolation Continue dexamethasone for total 10 days Continue remdesivir complete 4 doses Prone position as tolerated Closely monitor inflammatory markers home oxygen evaluation Discharge planning when medically stable Patient is severely hypoxemic requiring high flow oxygen ID consult,Consult pulmonary --Severe sepsis secondary to Covid pneumonia Current Visit: Yes Status: Acute . Plan to address problem: Tachycardia, fever, pneumonia on chest x-ray --Type II diabetes mellitus Current Visit: Yes Status: Acute . Plan to address problem: Accu-Chek sliding scale coverage ADA diet Long-acting insulin as needed, check A1c Diabetic education, diabetic diet counseling Monitor closely and adjust management as needed -- Hypertension Current Visit: Yes Status: Acute Plan to address problem: Patient currently has optimal control blood pressure. Continue antihypertensives. --DVT prophylaxis Current Visit: Yes Status: Acute Plan to address problem: Currently on Lovenox. -- Full code status Current Visit: Yes Status: Acute --Morbid obesity (BMI 48.9) Current Visit: Yes Status: Acute Plan to address problem: This increases risk from COVID-19 pneumonia and COVID-19 itself. Patient educated on lifestyle changes upon discharge. Plan of care reviewed with the patient and her nurse Patient is morbidly obese , severe COVID-19 sepsis ,critically ill In severe distress requiring high flow oxygen, very poor prognosis History Interval history: I have seen the patient in his room from a distance Isolation and PPE protocols strictly followed Patient continues to require high flow oxygen Morbidly obese, in mild distress Vital signs noted Hospitalist Physical - Constitutional Vitals: Temp Pulse Resp BP Pulse Ox 98.6 F 105 H 24 125/57 94 07/08/20 16:55 07/08/20 16:55 07/08/20 16:55 07/08/20 16:55 07/08/20 18:34 General appearance: Present: mild distress, well-nourished, obese (Morbidly obese) - EENT ENT: other (No physical exam to reduce risk of transmission) - Neck Neck: Present: other (No physical exam to reduce risk of transmission) - Respiratory Respiratory effort: other (No physical exam to reduce risk of transmission) - Extremities Extremity abnormal: other (No physical exam to reduce risk of transmission) - Abdominal General gastrointestinal: other (No physical exam to reduce risk of transm ission) - Psychiatric Psychiatric: other (No physical exam to reduce risk of transmission) - Neurologic Neurologic: other (.No physical exam to reduce risk of transmission) Results - Labs CBC & Chem 7: 07/02/20 22:37 07/08/20 05:16 Labs: Laboratory Last Values WBC 5.3 K/mm3 (4.5-11.0) 07/02/20 22:37 RBC 5.16 M/mm3 (3.65-5.03) H 07/02/20 22:37 Hgb 13.5 gm/dl (10.1-14.3) 07/02/20 22:37 Hct 41.7 % (30.3-42.9) 07/02/20 22:37 MCV 81 fl (79-97) 07/02/20 22:37 MCH 26 pg (28-32) L 07/02/20 22:37 MCHC 32 % (30-34) 07/02/20 22:37 RDW 16.8 % (13.2-15.2) H 07/02/20 22:37 Plt Count 258 K/mm3 (140-440) 07/02/20 22:37 Lymph % (Auto) 29.6 % (13.4-35.0) 07/02/20 22:37 [place] % (Auto) 8.3 % (0.0-7.3) H 07/02/20 22:37 Eos % (Auto) 0.0 % (0.0-4.3) 07/02/20 22:37 Baso % (Auto) 0.3 % (0.0-1.8) 07/02/20 22:37 Lymph # (Auto) 1.6 K/mm3 (1.2-5.4) 07/02/20 22:37 [place] # (Auto) 0.4 K/mm3 (0.0-0.8) 07/02/20 22:37 Eos # (Auto) 0.0 K/mm3 (0.0-0.4) 07/02/20 22:37 Baso # (Auto) 0.0 K/mm3 (0.0-0.1) 07/02/20 22:37 Seg Neutrophils % 61.8 % (40.0-70.0) 07/02/20 22:37 Seg Neutrophils # 3.3 K/mm3 (1.8-7.7) 07/02/20 22:37 D-Dimer 801.22 ng/mlDDU (0-234) H 07/08/20 15:03 ABG pH 7.456 pH Units (7.350-7.450) H 07/04/20 02:44 ABG pCO2 39.9 mm Hg 07/04/20 02:44 ABG pO2 60.7 mm Hg (80.0-90.0) L 07/04/20 02:44 ABG HCO3 27.5 mmol/L (20.0-26.0) H 07/04/20 02:44 ABG O2 Saturation 93.6 % (95.0-99.0) L 07/04/20 02:44 ABG O2 Content 16.4 (0.0-44) 07/04/20 02:44 ABG Base Excess 3.4 mmol/L (-2.0-3.0) H 07/04/20 02:44 ABG Hemoglobin 12.7 gm/dl (12.0-16.0) 07/04/20 02:44 ABG Carboxyhemoglobin 1.7 % (0.0-5.0) 07/04/20 02:44 ABG Methemoglobin 0.5 % (0.0-1.5) 07/04/20 02:44 Oxyhemoglobin 91.6 % (95.0-99.0) L 07/04/20 02:44 FiO2 32 % 07/04/20 02:44 Sodium 137 mmol/L (137-145) 07/08/20 05:16 Potassium 4.4 mmol/L (3.6-5.0) 07/08/20 05:16 Chloride 99.2 mmol/L (98-107) 07/08/20 05:16 Carbon Dioxide 31 mmol/L (22-30) H 07/08/20 05:16 Anion Gap 11 mmol/L 07/08/20 05:16 BUN 10 mg/dL (7-17) 07/08/20 05:16 Creatinine 0.6 mg/dL (0.6-1.2) 07/08/20 05:16 Estimated GFR > 60 ml/min 07/08/20 05:16 BUN/Creatinine Ratio 17 % 07/08/20 05:16 Glucose 112 mg/dL (65-100) H 07/08/20 05:16 POC Glucose 241 mg/dL (70-105) H 07/08/20 16:55 Hemoglobin A1c 7.2 % (4-6) H 07/08/20 16:59 Calcium 8.8 mg/dL (8.4-10.2) 07/08/20 05:16 Magnesium 1.70 mg/dL (1.7-2.3) 07/02/20 22:37 Ferritin 1359.0 ng/mL (10.0-200.0) H 07/08/20 15:03 Total Bilirubin 0.30 mg/dL (0.1-1.2) 07/08/20 05:16 AST 29 units/L (5-40) 07/08/20 05:16 ALT 29 units/L (7-56) 07/08/20 05:16 Alkaline Phosphatase 73 units/L (35-129) 07/08/20 05:16 Lactate Dehydrogenase 384 units/L (91-180) H 07/08/20 15:03 Total Creatine Kinase 384 units/L (30-135) H 07/02/20 22:37 C-Reactive Protein 5.10 mg/dL (0.00-1.30) H 07/08/20 15:03 Total Protein 6.7 g/dL (6.3-8.2) 07/08/20 05:16 Albumin 3.2 g/dL (3.9-5) L 07/08/20 05:16 Albumin/Globulin Ratio 0.9 % 07/08/20 05:16 Procalcitonin < 0.05 ng/mL (<0.15) 07/04/20 13:55 Coronavirus (PCR) Positive (Negative) A 07/03/20 10:35 Castaneda/IV: Voiding Method Bedside Commode IV Catheter Type [Right Hand] INT / Saline Lock IV Catheter Type [Left Hand] INT / Saline Lock Active Medications - Current Medications Current Medications: Generic Name Dose Route Start Last Admin Trade Name Freq PRN Reason Stop Dose Admin Acetaminophen 650 mg 07/03/20 03:54 Acetaminophen 325 Mg Tab PO Q4H PRN Pain MILD(1-3)/Fever >100.5/REDMOND Albuterol 2 puff 07/06/20 10:00 07/08/20 08:48 Albuterol 8.5 Gm Mdi Inhalation IH 2 puff BIDRT KRISTEN Administration Dexamethasone 6 mg 07/04/20 11:00 07/08/20 09:21 Dexamethasone 4 Mg Tab PO 07/12/20 10:01 6 mg DAILY KRISTEN Administration Dextrose 0 ml 07/03/20 03:53 Dextrose 50% In Water (25gm) 50 Ml Syringe IV Q30MIN PRN Hypoglycemia Protocol Enoxaparin Sodium 40 mg 07/03/20 22:00 07/07/20 21:04 Enoxaparin 40 Mg/0.4 Ml Inj SUB-Q 40 mg QDAY@2200 KRISTEN Administration Protocol REMDESIVIR 100 mg/ Sodium 250 mls @ 500 mls/hr 07/05/20 21:00 07/07/20 21:03 Chloride IV 07/08/20 21:29 500 mls/hr Q24HR@2100 KRISTEN Administration Insulin Glargine 10 units 07/04/20 22:00 07/07/20 21:33 Insulin Glargine 100 Units/Ml SUB-Q 10 units QHS KRISTEN Administration Insulin Human Lispro 0 unit 07/03/20 07:30 07/08/20 16:30 Insulin Lispro 100 Unit/Ml Vial 3 Ml SUB-Q 300 unit ACHS KRISTEN Administration Protocol Nystatin 1 applic 07/03/20 15:00 07/08/20 12:44 Nystatin Powder 15 Gm TP 1 applic BID KRISTEN Administration Ondansetron HCl 4 mg 07/03/20 03:54 Ondansetron 4 Mg/2 Ml Inj IV Q8H PRN Nausea And Vomiting Sodium Chloride 10 ml 07/03/20 10:00 07/08/20 12:43 Sodium Chloride 0.9% 10 Ml Flush Syringe IV 10 ml BID KRISTEN Administration Sodium Chloride 10 ml 07/03/20 03:54 Sodium Chloride 0.9% 10 Ml Flush Syringe IV PRN PRN LINE FLUSH Nutrition/Malnutrition Assess - Dietary Evaluation Nutrition/Malnutrition Findings: Nutrition Notes Start: 07/03/20 10:41 Freq: Status: Active Protocol: Document 07/03/20 10:41 MK (Rec: 07/03/20 10:44 KRYSTINA [id number]) Nutrition Notes Need for Assessment generated from: MD Order Initial or Follow up Brief Note Current Diagnosis COPD,Diabetes,Hypertension Other Pertinent Diagnosis pneumonia Current Diet Regular Subjective/Other Information MD order for diet education. Pt on hold in ED. Nutrition Intervention Change Diet Order: Cardiac, Consistent CHO Follow-Up By: 07/09/20 Additional Comments FU for diet education
[2020-07-08 19:01] LABS: Bilirubin,Urine NEG (Negative); Blood,Urine LG (Negative); Color,Urine Yellow (Yellow); RBC,Urine > 182.0 /HPF (0.0-6.0)
[2020-07-08] MEDS: ENOXAPARIN 40 MG/0.4 ML INJ SUB-Q SCH (22:34)
[2020-07-08] MEDS: REMDESIVIR 100 MG in SODIUM CHLORIDE 0.9% 250ML 250 ML IV SCH (22:34)
[2020-07-08] MEDS: INSULIN GLARGINE 100 UNITS/ML SUB-Q SCH (22:40)
[2020-07-09] MEDS: INSULIN LISPRO 100 UNIT/ML VIAL 3 mL SUB-Q SCH ×4 (09:00→22:20)
[2020-07-09] MEDS: DEXAMETHASONE 4 MG TAB PO SCH (09:12)
[2020-07-09] MEDS: NYSTATIN POWDER 15 GM TP SCH ×2 (09:20→22:24)
[2020-07-09] MEDS: ALBUTEROL 8.5 GM MDI INHALATION IH SCH ×2 (09:20→21:13)
--- NOTE | 2020-07-09 11:04 | Consultation ---
History of Present Illness Consult date: 07/09/20 Requesting physician: JEREMIAH MCGUIRE Reason for consult: hypoxemia, obstructive sleep apnea History of present illness: 69 y/o, obese female admitted on 07/03 with acute respiratory failure, and found to be SARsCOV2 positive. Unfortunately her oxygen requirements have increased over the last several days. [facility] has requested a consult secondary to this. Past History Past Medical History: COPD, diabetes, hypertension Past Surgical History: Other (Tubal ligation,Right knee surgery,Right breast lumpectomy) Social history: smoking (Former smoker) Medications and Allergies Allergies Allergy/AdvReac Type Severity Reaction Status Date / Time No Known Allergies Allergy Unverified 07/02/20 21:21 Home Medications Medication Instructions Recorded Confirmed Last Taken Type No Known Home Medications [No 07/06/20 07/06/20 Unknown History Reported Home Medications] Active Meds: Active Medications Acetaminophen (Acetaminophen 325 Mg Tab) 650 mg PO Q4H PRN PRN Reason: Pain MILD(1-3)/Fever >100.5/[place] Albuterol (Albuterol 8.5 Gm Mdi Inhalation) 2 puff IH BIDRT [facility] Last Admin: 07/09/20 09:20 Dose: 2 puff Documented by: Dexamethasone (Dexamethasone 4 Mg Tab) 6 mg PO DAILY [facility] Stop: 07/12/20 10:01 Last Admin: 07/09/20 09:12 Dose: 6 mg Documented by: Dextrose (Dextrose 50% In Water (25gm) 50 Ml Syringe) 0 ml IV Q30MIN PRN; Protocol PRN Reason: Hypoglycemia Enoxaparin Sodium (Enoxaparin 40 Mg/0.4 Ml Inj) 40 mg SUB-Q QDAY@2200 [facility]; Protocol Last Admin: 07/08/20 22:34 Dose: 40 mg Documented by: Insulin Glargine (Insulin Glargine 100 Units/Ml) 10 units SUB-Q QHS [facility] Last Admin: 07/08/20 22:40 Dose: 10 units Documented by: Insulin Human Lispro (Insulin Lispro 100 Unit/Ml Vial 3 Ml) 0 unit SUB-Q ACHS [facility]; Protocol Last Admin: 07/09/20 09:00 Dose: Not Given Documented by: Nystatin (Nystatin Powder 15 Gm) 1 applic TP BID [facility] Last Admin: 07/09/20 09:20 Dose: 1 applic Documented by: Ondansetron HCl (Ondansetron 4 Mg/2 Ml Inj) 4 mg IV Q8H PRN PRN Reason: Nausea And Vomiting Sodium Chloride (Sodium Chloride 0.9% 10 Ml Flush Syringe) 10 ml IV BID KRISTEN Last Admin: 07/09/20 09:01 Dose: 10 ml Documented by: Sodium Chloride (Sodium Chloride 0.9% 10 Ml Flush Syringe) 10 ml IV PRN PRN PRN Reason: LINE FLUSH Physical Examination Vital signs: Vital Signs Temp Pulse Resp BP Pulse Ox 99.0 F 111 H 18 131/77 92 07/02/20 21:09 07/02/20 21:09 07/02/20 21:09 07/02/20 21:09 07/02/20 21:09 Patient not examined in person to preserve PPE Results - Laboratory Findings CBC and BMP: 07/02/20 22:37 07/08/20 05:16 ABG ABG pH 7.456 pH Units (7.350-7.450) H 07/04/20 02:44 ABG pCO2 39.9 mm Hg 07/04/20 02:44 ABG pO2 60.7 mm Hg (80.0-90.0) L 07/04/20 02:44 ABG O2 Saturation 93.6 % (95.0-99.0) L 07/04/20 02:44 PT/INR, D-dimer D-Dimer 801.22 ng/mlDDU (0-234) H 07/08/20 15:03 Abnormal lab findings: Abnormal Labs 07/02/20 07/02/20 07/02/20 22:37 22:37 22:37 RBC 5.16 H MCH 26 L RDW 16.8 H [place] % (Auto) 8.3 H D-Dimer ABG pH ABG pO2 ABG HCO3 ABG O2 Saturation ABG Base Excess Oxyhemoglobin Sodium 134 L Chloride 94.8 L Carbon Dioxide Glucose 171 H POC Glucose Hemoglobin A1c Ferritin Lactate Dehydrogenase Total Creatine Kinase 384 H C-Reactive Protein Albumin 3.6 L Coronavirus (PCR) 07/03/20 07/03/20 07/03/20 03:12 03:14 03:14 RBC MCH RDW [place] % (Auto) D-Dimer 626.31 H ABG pH ABG pO2 ABG HCO3 ABG O2 Saturation ABG Base Excess Oxyhemoglobin Sodium Chloride Carbon Dioxide Glucose 162 H POC Glucose 166 H Hemoglobin A1c Ferritin Lactate Dehydrogenase 337 H Total Creatine Kinase C-Reactive Protein 9.30 H Albumin Coronavirus (PCR) 07/03/20 07/03/20 07/03/20 03:14 08:20 10:35 RBC MCH RDW [place] % (Auto) D-Dimer ABG pH ABG pO2 ABG HCO3 ABG O2 Saturation ABG Base Excess Oxyhemoglobin Sodium Chloride Carbon Dioxide Glucose POC Glucose 157 H Hemoglobin A1c Ferritin 1568.0 H Lactate Dehydrogenase Total Creatine Kinase C-Reactive Protein Albumin Coronavirus (PCR) Positive A 07/03/20 07/03/20 07/03/20 11:40 16:46 22:33 RBC MCH RDW [place] % (Auto) D-Dimer ABG pH ABG pO2 ABG HCO3 ABG O2 Saturation ABG Base Excess Oxyhemoglobin Sodium Chloride Carbon Dioxide Glucose POC Glucose 220 H 188 H 162 H Hemoglobin A1c Ferritin Lactate Dehydrogenase Total Creatine Kinase C-Reactive Protein Albumin Coronavirus (PCR) 07/04/20 07/04/20 07/04/20 02:44 11:39 13:55 RBC MCH RDW [place] % (Auto) D-Dimer 397.35 H ABG pH 7.456 H ABG pO2 60.7 L ABG HCO3 27.5 H ABG O2 Saturation 93.6 L ABG Base Excess 3.4 H Oxyhemoglobin 91.6 L Sodium Chloride Carbon Dioxide Glucose POC Glucose 208 H Hemoglobin A1c Ferritin Lactate Dehydrogenase Total Creatine Kinase C-Reactive Protein Albumin Coronavirus (PCR) 07/04/20 07/04/20 07/04/20 13:55 13:55 17:17 RBC MCH RDW [place] % (Auto) D-Dimer ABG pH ABG pO2 ABG HCO3 ABG O2 Saturation ABG Base Excess Oxyhemoglobin Sodium Chloride Carbon Dioxide Glucose 188 H POC Glucose 139 H Hemoglobin A1c Ferritin 1691.0 H Lactate Dehydrogenase 349 H Total Creatine Kinase C-Reactive Protein 4.80 H Albumin Coronavirus (PCR) 07/04/20 07/05/20 07/05/20 22:01 12:28 16:45 RBC MCH RDW [place] % (Auto) D-Dimer ABG pH ABG pO2 ABG HCO3 ABG O2 Saturation ABG Base Excess Oxyhemoglobin Sodium Chloride Carbon Dioxide Glucose POC Glucose 143 H 113 H 186 H Hemoglobin A1c Ferritin Lactate Dehydrogenase Total Creatine Kinase C-Reactive Protein Albumin Coronavirus (PCR) 07/05/20 07/06/20 07/06/20 21:53 11:49 18:52 RBC MCH RDW [place] % (Auto) D-Dimer ABG pH ABG pO2 ABG HCO3 ABG O2 Saturation ABG Base Excess Oxyhemoglobin Sodium Chloride Carbon Dioxide Glucose POC Glucose 167 H 106 H 235 H Hemoglobin A1c Ferritin Lactate Dehydrogenase Total Creatine Kinase C-Reactive Protein Albumin Coronavirus (PCR) 07/06/20 07/07/20 07/07/20 22:24 05:19 11:09 RBC MCH RDW [place] % (Auto) D-Dimer ABG pH ABG pO2 ABG HCO3 ABG O2 Saturation ABG Base Excess Oxyhemoglobin Sodium Chloride Carbon Dioxide 31 H Glucose 122 H POC Glucose 201 H 132 H Hemoglobin A1c Ferritin Lactate Dehydrogenase Total Creatine Kinase C-Reactive Protein Albumin 3.2 L Coronavirus (PCR) 07/07/20 07/07/20 07/08/20 16:03 21:00 05:16 RBC MCH RDW [place] % (Auto) D-Dimer ABG pH ABG pO2 ABG HCO3 ABG O2 Saturation ABG Base Excess Oxyhemoglobin Sodium Chloride Carbon Dioxide 31 H Glucose 112 H POC Glucose 162 H 238 H Hemoglobin A1c Ferritin Lactate Dehydrogenase Total Creatine Kinase C-Reactive Protein Albumin 3.2 L Coronavirus (PCR) 07/08/20 07/08/20 07/08/20 11:51 15:03 15:03 RBC MCH RDW [place] % (Auto) D-Dimer 801.22 H ABG pH ABG pO2 ABG HCO3 ABG O2 Saturation ABG Base Excess Oxyhemoglobin Sodium Chloride Carbon Dioxide Glucose POC Glucose 121 H Hemoglobin A1c Ferritin 1359.0 H Lactate Dehydrogenase Total Creatine Kinase C-Reactive Protein Albumin Coronavirus (PCR) 07/08/20 07/08/20 07/08/20 15:03 16:55 16:59 RBC MCH RDW [place] % (Auto) D-Dimer ABG pH ABG pO2 ABG HCO3 ABG O2 Saturation ABG Base Excess Oxyhemoglobin Sodium Chloride Carbon Dioxide Glucose POC Glucose 241 H Hemoglobin A1c 7.2 H Ferritin Lactate Dehydrogenase 384 H Total Creatine Kinase C-Reactive Protein 5.10 H Albumin Coronavirus (PCR) 07/08/20 22:20 RBC MCH RDW [place] % (Auto) D-Dimer ABG pH ABG pO2 ABG HCO3 ABG O2 Saturation ABG Base Excess Oxyhemoglobin Sodium Chloride Carbon Dioxide Glucose POC Glucose 169 H Hemoglobin A1c Ferritin Lactate Dehydrogenase Total Creatine Kinase C-Reactive Protein Albumin Coronavirus (PCR) Assessment and Plan 69 y/o female with acute respiratory failure secondary to SARs COV2 infection, and possible COPD exacerbation with untreated obstructive sleep apnea. 1. Will change dex to solumedrol 60 q6 2. Agree with albuterol puffers 3. Ordered for proning during the day and sleep prone at night if possible 4. Limit volume status, and no additional IVF's if possible 5. Overall prognosis is guarded.
[2020-07-09] MEDS: methylPREDNISolone Sod Succinate 125 MG/2 ML INJ IV SCH ×2 (12:05→18:10)
--- NOTE | 2020-07-09 13:11 | Progress Note ---
Assessment and Plan Assessment and plan: History of obstructive sleep apnea/on CPAP at night, noncompliant Covid positive test; 07/03/2020 --Severe hypoxemia; secondary to pneumonia due to Covid Oxygen titrate O2 sats more than 90%, on high flow oxygen 30L /100 %/93 O2sat Nebulizers, prone position, pulmonary consulted -- Pneumonia due to COVID-19 virus Current Visit: Yes Status: Acute Plan to address problem: Contact and droplet isolation Continue dexamethasone for total 10 days Continue remdesivir complete 4 doses Prone position as tolerated Trend inflammatory markers home oxygen evaluation Discharge planning when medically stable Patient is severely hypoxemic requiring high flow oxygen ID pulmonary consulted Follow recommendations --Severe sepsis secondary to Covid pneumonia Current Visit: Yes Status: Acute . Plan to address problem: Tachycardia, fever, pneumonia on chest x-ray --Type II diabetes mellitus Current Visit: Yes Status: Acute . Plan to address problem: Accu-Chek sliding scale coverage ADA diet Long-acting insulin as needed, check A1c Diabetic education, diabetic diet counseling Monitor closely and adjust management as needed -- Hypertension Current Visit: Yes Status: Acute Plan to address problem: Patient currently has optimal control blood pressure. Continue antihypertensives. --DVT prophylaxis Current Visit: Yes Status: Acute Plan to address problem: Currently on Lovenox. -- Full code status Current Visit: Yes Status: Acute --Morbid obesity (BMI 48.9) Current Visit: Yes Status: Acute Plan to address problem: This increases risk from COVID-19 pneumonia and COVID-19 itself. Patient educated on lifestyle changes upon discharge. Plan of care reviewed with the patient and her nurse Patient is morbidly obese , severe COVID-19 sepsis ,critically ill In severe distress requiring high flow oxygen, very poor prognosis 07/04-patient was on CPAP last night. Now weaned down to 6 L of O2. We closely monitor patient's oxygen saturations with 6 L. Otherwise patient resting comfortably now in bed in prone position. -patient appears to be doing worse than yesterday. Still able to wean down to 6 L however patient became more hypoxic. Overall conditions of morbid obesity, sleep apnea, obesity hypoventilation syndrome. Place patient at extreme risk. Patient is aware of evaluation all questions and concerns answered. Patient will require oxygen upon discharge. History patient was complained of shortness of breath even prior to Covid. Will most likely require home O2 prior to developing Covid. 07/09/2020; patient morbidly obese remains on high flow oxygen, 30 L/100/95% Continuously on high flow oxygen, very poor prognosis, no beds available in ICU for close monitoring Strictly informed the patient not to remove the oxygen History Interval history: I have seen the patient in his room Strict isolation precautions and PPE protocols observed Patient is morbidly obese on high flow oxygen Covid positive Very poor prognosis, Vital signs reviewed Hospitalist Physical - Constitutional Vitals: Temp Pulse Resp BP Pulse Ox 98.7 F 119 H 24 122/76 91 07/09/20 11:04 07/09/20 11:04 07/09/20 11:04 07/09/20 11:04 07/09/20 11:16 General appearance: Present: mild distress, well-nourished, obese (Morbidly obese) - EENT Eyes: Present: PERRL, EOM intact - Neck Neck: Present: supple, normal ROM - Respiratory Respiratory effort: normal Respiratory: bilateral: diminished, rhonchi, negative: rales, wheezing - Cardiovascular Rhythm: regular Heart Sounds: Present: S1 & S2 - Extremities Extremities: no ischemia, No edema - Abdominal General gastrointestinal: non-tender, non-distended Results - Labs CBC & Chem 7: 07/02/20 22:37 07/08/20 05:16 Labs: Laboratory Last Values WBC 5.3 K/mm3 (4.5-11.0) 07/02/20 22:37 RBC 5.16 M/mm3 (3.65-5.03) H 07/02/20 22:37 Hgb 13.5 gm/dl (10.1-14.3) 07/02/20 22:37 Hct 41.7 % (30.3-42.9) 07/02/20 22:37 MCV 81 fl (79-97) 07/02/20 22:37 MCH 26 pg (28-32) L 07/02/20 22:37 MCHC 32 % (30-34) 07/02/20 22:37 RDW 16.8 % (13.2-15.2) H 07/02/20 22:37 Plt Count 258 K/mm3 (140-440) 07/02/20 22:37 Lymph % (Auto) 29.6 % (13.4-35.0) 07/02/20 22:37 [place] % (Auto) 8.3 % (0.0-7.3) H 07/02/20 22:37 Eos % (Auto) 0.0 % (0.0-4.3) 07/02/20 22:37 Baso % (Auto) 0.3 % (0.0-1.8) 07/02/20 22:37 Lymph # (Auto) 1.6 K/mm3 (1.2-5.4) 07/02/20 22:37 [place] # (Auto) 0.4 K/mm3 (0.0-0.8) 07/02/20 22:37 Eos # (Auto) 0.0 K/mm3 (0.0-0.4) 07/02/20 22:37 Baso # (Auto) 0.0 K/mm3 (0.0-0.1) 07/02/20 22:37 Seg Neutrophils % 61.8 % (40.0-70.0) 07/02/20 22:37 Seg Neutrophils # 3.3 K/mm3 (1.8-7.7) 07/02/20 22:37 D-Dimer 801.22 ng/mlDDU (0-234) H 07/08/20 15:03 ABG pH 7.456 pH Units (7.350-7.450) H 07/04/20 02:44 ABG pCO2 39.9 mm Hg 07/04/20 02:44 ABG pO2 60.7 mm Hg (80.0-90.0) L 07/04/20 02:44 ABG HCO3 27.5 mmol/L (20.0-26.0) H 07/04/20 02:44 ABG O2 Saturation 93.6 % (95.0-99.0) L 07/04/20 02:44 ABG O2 Content 16.4 (0.0-44) 07/04/20 02:44 ABG Base Excess 3.4 mmol/L (-2.0-3.0) H 07/04/20 02:44 ABG Hemoglobin 12.7 gm/dl (12.0-16.0) 07/04/20 02:44 ABG Carboxyhemoglobin 1.7 % (0.0-5.0) 07/04/20 02:44 ABG Methemoglobin 0.5 % (0.0-1.5) 07/04/20 02:44 Oxyhemoglobin 91.6 % (95.0-99.0) L 07/04/20 02:44 FiO2 32 % 07/04/20 02:44 Sodium 137 mmol/L (137-145) 07/08/20 05:16 Potassium 4.4 mmol/L (3.6-5.0) 07/08/20 05:16 Chloride 99.2 mmol/L (98-107) 07/08/20 05:16 Carbon Dioxide 31 mmol/L (22-30) H 07/08/20 05:16 Anion Gap 11 mmol/L 07/08/20 05:16 BUN 10 mg/dL (7-17) 07/08/20 05:16 Creatinine 0.6 mg/dL (0.6-1.2) 07/08/20 05:16 Estimated GFR > 60 ml/min 07/08/20 05:16 BUN/Creatinine Ratio 17 % 07/08/20 05:16 Glucose 112 mg/dL (65-100) H 07/08/20 05:16 POC Glucose 140 mg/dL (70-105) H 07/09/20 11:04 Hemoglobin A1c 7.2 % (4-6) H 07/08/20 16:59 Calcium 8.8 mg/dL (8.4-10.2) 07/08/20 05:16 Magnesium 1.70 mg/dL (1.7-2.3) 07/02/20 22:37 Ferritin 1359.0 ng/mL (10.0-200.0) H 07/08/20 15:03 Total Bilirubin 0.30 mg/dL (0.1-1.2) 07/08/20 05:16 AST 29 units/L (5-40) 07/08/20 05:16 ALT 29 units/L (7-56) 07/08/20 05:16 Alkaline Phosphatase 73 units/L (35-129) 07/08/20 05:16 Lactate Dehydrogenase 384 units/L (91-180) H 07/08/20 15:03 Total Creatine Kinase 384 units/L (30-135) H 07/02/20 22:37 C-Reactive Protein 5.10 mg/dL (0.00-1.30) H 07/08/20 15:03 Total Protein 6.7 g/dL (6.3-8.2) 07/08/20 05:16 Albumin 3.2 g/dL (3.9-5) L 07/08/20 05:16 Albumin/Globulin Ratio 0.9 % 07/08/20 05:16 Procalcitonin < 0.05 ng/mL (<0.15) 07/04/20 13:55 Urine Color Yellow (Yellow) 07/08/20 Unknown Urine Turbidity Clear (Clear) 07/08/20 Unknown Urine pH 7.0 (5.0-7.0) 07/08/20 Unknown Ur Specific [place] 1.015 (1.003-1.030) 07/08/20 Unknown Urine Protein 30 mg/dl mg/dL (Negative) 07/08/20 Unknown Urine Glucose (UA) 150 mg/dL (Negative) 07/08/20 Unknown Urine Ketones Neg mg/dL (Negative) 07/08/20 Unknown Urine Blood Lg (Negative) 07/08/20 Unknown Urine Nitrite Neg (Negative) 07/08/20 Unknown Urine Bilirubin Neg (Negative) 07/08/20 Unknown Urine Urobilinogen 2.0 mg/dL (<2.0) 07/08/20 Unknown Ur Leukocyte Esterase Neg (Negative) 07/08/20 Unknown Urine WBC (Auto) 2.0 /HPF (0.0-6.0) 07/08/20 Unknown Urine RBC (Auto) > 182.0 /HPF (0.0-6.0) 07/08/20 Unknown U Epithel Cells (Auto) 1.0 /HPF (0-13.0) 07/08/20 Unknown Coronavirus (PCR) Positive (Negative) A 07/03/20 10:35 [place]/IV: Voiding Method Toilet IV Catheter Type [Right Hand] INT / Saline Lock IV Catheter Type [Left Hand] INT / Saline Lock Active Medications - Current Medications Current Medications: Generic Name Dose Route Start Last Admin Trade Name Freq PRN Reason Stop Dose Admin Acetaminophen 650 mg 07/03/20 03:54 Acetaminophen 325 Mg Tab PO Q4H PRN Pain MILD(1-3)/Fever >100.5/[place] Albuterol 2 puff 07/06/20 10:00 07/09/20 09:20 Albuterol 8.5 Gm Mdi Inhalation IH 2 puff BIDRT KRISTEN Administration Dextrose 0 ml 07/03/20 03:53 Dextrose 50% In Water (25gm) 50 Ml Syringe IV Q30MIN PRN Hypoglycemia Protocol Enoxaparin Sodium 40 mg 07/03/20 22:00 07/08/20 22:34 Enoxaparin 40 Mg/0.4 Ml Inj SUB-Q 40 mg QDAY@2200 KRISTEN Administration Protocol Insulin Glargine 10 units 07/04/20 22:00 07/08/20 22:40 Insulin Glargine 100 Units/Ml SUB-Q 10 units QHS KRISTEN Administration Insulin Human Lispro 0 unit 07/03/20 07:30 07/09/20 11:38 Insulin Lispro 100 Unit/Ml Vial 3 Ml SUB-Q Not Given ACHS [facility] Protocol Methylprednisolone Sodium Succinate 60 mg 07/09/20 12:00 07/09/20 12:05 Methylprednisolone Sod Succinate 125 Mg/2 Ml Inj IV 60 mg Q6HR KRISTEN Administration Nystatin 1 applic 07/03/20 15:00 07/09/20 09:20 Nystatin Powder 15 Gm TP 1 applic BID KRISTEN Administration Ondansetron HCl 4 mg 07/03/20 03:54 Ondansetron 4 Mg/2 Ml Inj IV Q8H PRN Nausea And Vomiting Sodium Chloride 10 ml 07/03/20 10:00 07/09/20 09:01 Sodium Chloride 0.9% 10 Ml Flush Syringe IV 10 ml BID KRISTEN Administration Sodium Chloride 10 ml 07/03/20 03:54 Sodium Chloride 0.9% 10 Ml Flush Syringe IV PRN PRN LINE FLUSH Tiotropium [place] 1 puff 07/10/20 09:00 Tiotropium 18 Mcg Cap Inhalation IH Q24HRT [facility] Nutrition/Malnutrition Assess - Dietary Evaluation Nutrition/Malnutrition Findings: Nutrition Notes Start: 07/03/20 10:41 Freq: Status: Active Protocol: Document 07/09/20 11:00 KRYSTINA (Rec: 07/09/20 11:08 [id number]) Nutrition Notes Initial or Follow up Brief Note Current Diagnosis COPD,Diabetes,Hypertension Other Pertinent Diagnosis pneumonia, COVID Current Diet Cardiac, Consistent CHO Labs/Tests A1c 7.2% POC BG 169 Pertinent Medications Decadron Height 5 ft 6 in Weight 135.8 kg Usual Body Weight 136.36 kg [place] Body Weight (kg) 59.09 BMI 48.3 Weight Status Morbidly Obese Subjective/Other Information FU for diet education. Pt denied education but would like handouts. RD to give to RN to give to pt. Pt reports eating 75% of meals due to being unable to chew food. Pt would like a mechanical soft diet. #1 Nutrition Diagnosis Food and nutrition-related knowledge deficit Etiology DM As Evidenced by Signs and Symptoms pt refused DM education Diagnosis Progress(for reassessment Resolved documentation) Nutrition Intervention Change Diet Order: Cardiac, Consistent CHO with mechanical soft Teaching Recipient Patient Learning Readiness Poor Teaching Methods Handout Response to Teaching Refuses to learn Education Handouts Provided Planning Healthy Meals Barriers to Learning Motivation RD phone number provided Yes Patient aware of follow up options Yes Actions To Overcome Barriers Other Revisit per MD consult or patient Sign Off request:
--- NOTE | 2020-07-09 15:47 | Consultation ---
History of Present Illness - Reason for Consult Consult date: 07/09/20 - History of Present Illness 69-year-old female past medical history diabetes, hypertension, COPD presented to hospital complaining shortness of breath. Began approximate 6 days prior to admission is worse with activity. She also complains of fevers and chills. She otherwise denies any symptoms, and denies any known contact with people with COVID-19. Afebrile since admission with a normal white count. Noted to have tachypnea. Normal procalcitonin, normal renal function. Currently on high flow nasal ca nnula. Imaging personally viewed: Chest x-ray: Right-sided pneumonia Review of systems: Deferred due to PPE conservation strategy Past History Past Medical History: COPD, diabetes, hypertension Past Surgical History: Other (Tubal ligation,Right knee surgery,Right breast lumpectomy) Social history: smoking (Former smoker) Medications and Allergies Allergies Allergy/AdvReac Type Severity Reaction Status Date / Time No Known Allergies Allergy Unverified 07/02/20 21:21 Home Medications Medication Instructions Recorded Confirmed Last Taken Type No Known Home Medications [No 07/06/20 07/06/20 Unknown History Reported Home Medications] Active Meds: Active Medications Acetaminophen (Acetaminophen 325 Mg Tab) 650 mg PO Q4H PRN PRN Reason: Pain MILD(1-3)/Fever >100.5/[place] Albuterol (Albuterol 8.5 Gm Mdi Inhalation) 2 puff IH BIDRT [facility] Last Admin: 07/09/20 09:20 Dose: 2 puff Documented by: Dextrose (Dextrose 50% In Water (25gm) 50 Ml Syringe) 0 ml IV Q30MIN PRN; Protocol PRN Reason: Hypoglycemia Enoxaparin Sodium (Enoxaparin 40 Mg/0.4 Ml Inj) 40 mg SUB-Q QDAY@2200 [facility]; Protocol Last Admin: 07/08/20 22:34 Dose: 40 mg Documented by: Insulin Glargine (Insulin Glargine 100 Units/Ml) 10 units SUB-Q QHS [facility] Last Admin: 07/08/20 22:40 Dose: 10 units Documented by: Insulin Human Lispro (Insulin Lispro 100 Unit/Ml Vial 3 Ml) 0 unit SUB-Q ACHS [facility]; Protocol Last Admin: 07/09/20 11:38 Dose: Not Given Documented by: Methylprednisolone Sodium Succinate (Methylprednisolone Sod Succinate 125 Mg/2 Ml Inj) 60 mg IV Q6HR [facility] Last Admin: 07/09/20 12:05 Dose: 60 mg Documented by: Nystatin (Nystatin Powder 15 Gm) 1 applic TP BID [facility] Last Admin: 07/09/20 09:20 Dose: 1 applic Documented by: Ondansetron HCl (Ondansetron 4 Mg/2 Ml Inj) 4 mg IV Q8H PRN PRN Reason: Nausea And Vomiting Sodium Chloride (Sodium Chloride 0.9% 10 Ml Flush Syringe) 10 ml IV BID [facility] Last Admin: 07/09/20 09:01 Dose: 10 ml Documented by: Sodium Chloride (Sodium Chloride 0.9% 10 Ml Flush Syringe) 10 ml IV PRN PRN PRN Reason: LINE FLUSH Tiotropium [place] (Tiotropium 18 Mcg Cap Inhalation) 1 puff IH Q24HRT [facility] Physical Examination - Physical Exam Narrative exam: Physical exam deferred due to PPE conservation strategy. Please refer to primary team's note. - Constitutional Vitals: Vital Signs Temp Pulse Resp BP Pulse Ox 98.7 F 119 H 24 122/76 91 07/09/20 11:04 07/09/20 11:04 07/09/20 11:04 07/09/20 11:04 07/09/20 11:16 Temperature -Last 24 Hours Temperature 98.7 F Temperature 97.4 F Temperature 98.0 F Temperature 98.6 F Results - Labs CBC & Chem 7: 07/02/20 22:37 07/08/20 05:16 Labs: Abnormal lab results 07/08/20 07/08/20 07/08/20 Range/Units 15:03 15:03 15:03 D-Dimer 801.22 H (0-234) ng/mlDDU POC Glucose (70-105) mg/dL Hemoglobin A1c (4-6) % Ferritin 1359.0 H (10.0-200.0) ng/mL Lactate Dehydrogenase 384 H (91-180) units/L C-Reactive Protein 5.10 H (0.00-1.30) mg/dL 07/08/20 07/08/20 07/08/20 Range/Units 16:55 16:59 22:20 D-Dimer (0-234) ng/mlDDU POC Glucose 241 H 169 H (70-105) mg/dL Hemoglobin A1c 7.2 H (4-6) % Ferritin (10.0-200.0) ng/mL Lactate Dehydrogenase (91-180) units/L C-Reactive Protein (0.00-1.30) mg/dL 07/09/20 Range/Units 11:04 D-Dimer (0-234) ng/mlDDU POC Glucose 140 H (70-105) mg/dL Hemoglobin A1c (4-6) % Ferritin (10.0-200.0) ng/mL Lactate Dehydrogenase (91-180) units/L C-Reactive Protein (0.00-1.30) mg/dL Assessment and Plan Cultures: COVID positive A/P: 69 yo F PMHx HTN, DM2 admitted with COVID-19 #Severe COVID-19 pneumonia: Patient presented with a week of symptoms, hypoxic currently on HFNC. #Acute hypoxemic respiratory failure: Likely secondary to COVID-19 infection. Currently on HFNC #DM2: tight glycemic control for best outcomes. Recs: -Start Remdesivir 200 mg IV q day x 1 followed by 100 mg IV q day x 4 days. CrCl>30. Pharmacy notified. -continue steroids to complete 10 days -Anticoagulation per hospital protocol -Proning as able. -Obtain daily inflammatory markers - ferritin, Ddimer, CRP, LDH Thank you for the consult, we will continue to follow. MD [facility] O: [phone] F: [phone]
[2020-07-09] MEDS ORDERED: REMDESIVIR 200 MG in SODIUM CHLORIDE 0.9% 250ML 250 ML IV ONE (16:56)
[2020-07-09] MEDS ORDERED: REMDESIVIR 100 MG VIAL IV ONE (17:00)
[2020-07-09] MEDS: SODIUM CHLORIDE 0.9% 50 ML IVPB IV SCH (22:18)
[2020-07-09] MEDS: ENOXAPARIN 40 MG/0.4 ML INJ SUB-Q SCH (22:19)
[2020-07-09] MEDS: INSULIN GLARGINE 100 UNITS/ML SUB-Q SCH (22:19)
[2020-07-10] MEDS: methylPREDNISolone Sod Succinate 125 MG/2 ML INJ IV SCH ×5 (00:42→23:42)
[2020-07-10] MEDS: INSULIN LISPRO 100 UNIT/ML VIAL 3 mL SUB-Q SCH ×4 (08:31→21:47)
[2020-07-10] MEDS: NYSTATIN POWDER 15 GM TP SCH ×2 (09:30→21:51)
--- NOTE | 2020-07-10 10:13 | Progress Note ---
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 1. Continue Solumedrol 60q6 2. Agree with albuterol puffers 3. Ordered for proning during the day and sleep prone at night if possible 4. Limit volume status, and no additional IVF's if possible 5. Overall prognosis is guarded. Subjective Date of service: 07/10/20 Principal diagnosis: COVID-19 pneumonia Interval history: No acute events. Updated sats and O2 requirements not documented yet. Objective Vital Signs - 12hr 07/09/20 07/10/20 23:46 05:46 Temperature 98.6 F 98.6 F Pulse Rate 79 98 H Respiratory 26 H 27 H Rate Blood Pressure 139/73 154/94 O2 Sat by Pulse 91 93 Oximetry CBC and BMP: 07/02/20 22:37 07/08/20 05:16 ABG, PT/INR, D-dimer: ABG ABG pH 7.456 pH Units (7.350-7.450) H 07/04/20 02:44 ABG pCO2 39.9 mm Hg 07/04/20 02:44 ABG pO2 60.7 mm Hg (80.0-90.0) L 07/04/20 02:44 ABG O2 Saturation 93.6 % (95.0-99.0) L 07/04/20 02:44 PT/INR, D-dimer D-Dimer 801.22 ng/mlDDU (0-234) H 07/08/20 15:03 Abnormal lab findings: Abnormal Labs 07/02/20 07/02/20 07/02/20 22:37 22:37 22:37 RBC 5.16 H MCH 26 L RDW 16.8 H [place] % (Auto) 8.3 H D-Dimer ABG pH ABG pO2 ABG HCO3 ABG O2 Saturation ABG Base Excess Oxyhemoglobin Sodium 134 L Chloride 94.8 L Carbon Dioxide Glucose 171 H POC Glucose Hemoglobin A1c Ferritin Lactate Dehydrogenase Total Creatine Kinase 384 H C-Reactive Protein Albumin 3.6 L Coronavirus (PCR) 07/03/20 07/03/20 07/03/20 03:12 03:14 03:14 RBC MCH RDW [place] % (Auto) D-Dimer 626.31 H ABG pH ABG pO2 ABG HCO3 ABG O2 Saturation ABG Base Excess Oxyhemoglobin Sodium Chloride Carbon Dioxide Glucose 162 H POC Glucose 166 H Hemoglobin A1c Ferritin Lactate Dehydrogenase 337 H Total Creatine Kinase C-Reactive Protein 9.30 H Albumin Coronavirus (PCR) 07/03/20 07/03/20 07/03/20 03:14 08:20 10:35 RBC MCH RDW [place] % (Auto) D-Dimer ABG pH ABG pO2 ABG HCO3 ABG O2 Saturation ABG Base Excess Oxyhemoglobin Sodium Chloride Carbon Dioxide Glucose POC Glucose 157 H Hemoglobin A1c Ferritin 1568.0 H Lactate Dehydrogenase Total Creatine Kinase C-Reactive Protein Albumin Coronavirus (PCR) Positive A 07/03/20 07/03/20 07/03/20 11:40 16:46 22:33 RBC MCH RDW [place] % (Auto) D-Dimer ABG pH ABG pO2 ABG HCO3 ABG O2 Saturation ABG Base Excess Oxyhemoglobin Sodium Chloride Carbon Dioxide Glucose POC Glucose 220 H 188 H 162 H Hemoglobin A1c Ferritin Lactate Dehydrogenase Total Creatine Kinase C-Reactive Protein Albumin Coronavirus (PCR) 07/04/20 07/04/20 07/04/20 02:44 11:39 13:55 RBC MCH RDW [place] % (Auto) D-Dimer 397.35 H ABG pH 7.456 H ABG pO2 60.7 L ABG HCO3 27.5 H ABG O2 Saturation 93.6 L ABG Base Excess 3.4 H Oxyhemoglobin 91.6 L Sodium Chloride Carbon Dioxide Glucose POC Glucose 208 H Hemoglobin A1c Ferritin Lactate Dehydrogenase Total Creatine Kinase C-Reactive Protein Albumin Coronavirus (PCR) 07/04/20 07/04/20 07/04/20 13:55 13:55 17:17 RBC MCH RDW [place] % (Auto) D-Dimer ABG pH ABG pO2 ABG HCO3 ABG O2 Saturation ABG Base Excess Oxyhemoglobin Sodium Chloride Carbon Dioxide Glucose 188 H POC Glucose 139 H Hemoglobin A1c Ferritin 1691.0 H Lactate Dehydrogenase 349 H Total Creatine Kinase C-Reactive Protein 4.80 H Albumin Coronavirus (PCR) 07/04/20 07/05/20 07/05/20 22:01 12:28 16:45 RBC MCH RDW [place] % (Auto) D-Dimer ABG pH ABG pO2 ABG HCO3 ABG O2 Saturation ABG Base Excess Oxyhemoglobin Sodium Chloride Carbon Dioxide Glucose POC Glucose 143 H 113 H 186 H Hemoglobin A1c Ferritin Lactate Dehydrogenase Total Creatine Kinase C-Reactive Protein Albumin Coronavirus (PCR) 07/05/20 07/06/20 07/06/20 21:53 11:49 18:52 RBC MCH RDW [place] % (Auto) D-Dimer ABG pH ABG pO2 ABG HCO3 ABG O2 Saturation ABG Base Excess Oxyhemoglobin Sodium Chloride Carbon Dioxide Glucose POC Glucose 167 H 106 H 235 H Hemoglobin A1c Ferritin Lactate Dehydrogenase Total Creatine Kinase C-Reactive Protein Albumin Coronavirus (PCR) 07/06/20 07/07/20 07/07/20 22:24 05:19 11:09 RBC MCH RDW [place] % (Auto) D-Dimer ABG pH ABG pO2 ABG HCO3 ABG O2 Saturation ABG Base Excess Oxyhemoglobin Sodium Chloride Carbon Dioxide 31 H Glucose 122 H POC Glucose 201 H 132 H Hemoglobin A1c Ferritin Lactate Dehydrogenase Total Creatine Kinase C-Reactive Protein Albumin 3.2 L Coronavirus (PCR) 07/07/20 07/07/20 07/08/20 16:03 21:00 05:16 RBC MCH RDW [place] % (Auto) D-Dimer ABG pH ABG pO2 ABG HCO3 ABG O2 Saturation ABG Base Excess Oxyhemoglobin Sodium Chloride Carbon Dioxide 31 H Glucose 112 H POC Glucose 162 H 238 H Hemoglobin A1c Ferritin Lactate Dehydrogenase Total Creatine Kinase C-Reactive Protein Albumin 3.2 L Coronavirus (PCR) 07/08/20 07/08/20 07/08/20 11:51 15:03 15:03 RBC MCH RDW [place] % (Auto) D-Dimer 801.22 H ABG pH ABG pO2 ABG HCO3 ABG O2 Saturation ABG Base Excess Oxyhemoglobin Sodium Chloride Carbon Dioxide Glucose POC Glucose 121 H Hemoglobin A1c Ferritin 1359.0 H Lactate Dehydrogenase Total Creatine Kinase C-Reactive Protein Albumin Coronavirus (PCR) 07/08/20 07/08/20 07/08/20 15:03 16:55 16:59 RBC MCH RDW [place] % (Auto) D-Dimer ABG pH ABG pO2 ABG HCO3 ABG O2 Saturation ABG Base Excess Oxyhemoglobin Sodium Chloride Carbon Dioxide Glucose POC Glucose 241 H Hemoglobin A1c 7.2 H Ferritin Lactate Dehydrogenase 384 H Total Creatine Kinase C-Reactive Protein 5.10 H Albumin Coronavirus (PCR) 07/08/20 07/09/20 07/09/20 22:20 11:04 16:41 RBC MCH RDW [place] % (Auto) D-Dimer ABG pH ABG pO2 ABG HCO3 ABG O2 Saturation ABG Base Excess Oxyhemoglobin Sodium Chloride Carbon Dioxide Glucose POC Glucose 169 H 140 H 281 H Hemoglobin A1c Ferritin Lactate Dehydrogenase Total Creatine Kinase C-Reactive Protein Albumin Coronavirus (PCR) 07/09/20 07/10/20 22:17 08:14 RBC MCH RDW [place] % (Auto) D-Dimer ABG pH ABG pO2 ABG HCO3 ABG O2 Saturation ABG Base Excess Oxyhemoglobin Sodium Chloride Carbon Dioxide Glucose POC Glucose 291 H 153 H Hemoglobin A1c Ferritin Lactate Dehydrogenase Total Creatine Kinase C-Reactive Protein Albumin Coronavirus (PCR)
[2020-07-10] MEDS ORDERED: FUROSEMIDE 20 MG/2 ML INJ IV NR (10:45)
[2020-07-10] MEDS: TIOTROPIUM 18 MCG CAP INHALATION IH SCH (17:39)
[2020-07-10] MEDS: ALBUTEROL 8.5 GM MDI INHALATION IH SCH ×2 (17:39→19:20)
--- NOTE | 2020-07-10 18:30 | Progress Note ---
Assessment and Plan Assessment and plan: History of obstructive sleep apnea/on CPAP at night, noncompliant Covid positive test; 07/03/2020 --Severe hypoxemia; secondary to pneumonia due to Covid Oxygen titrate O2 sats more than 90%, on high flow oxygen 30L /100 %/93 O2sat Nebulizers, prone position, pulmonary consulted -- Pneumonia due to COVID-19 virus Current Visit: Yes Status: Acute Plan to address problem: Contact and droplet isolation Continue dexamethasone for total 10 days Continue remdesivir complete 4 doses Prone position as tolerated Trend inflammatory markers home oxygen evaluation Discharge planning when medically stable Patient is severely hypoxemic requiring high flow oxygen ID pulmonary consulted Follow recommendations --Severe sepsis secondary to Covid pneumonia Current Visit: Yes Status: Acute . Plan to address problem: Tachycardia, fever, pneumonia on chest x-ray --Type II diabetes mellitus Current Visit: Yes Status: Acute . Plan to address problem: Accu-Chek sliding scale coverage ADA diet Long-acting insulin as needed, check A1c Diabetic education, diabetic diet counseling Monitor closely and adjust management as needed -- Hypertension Current Visit: Yes Status: Acute Plan to address problem: Patient currently has optimal control blood pressure. Continue antihypertensives. --DVT prophylaxis Current Visit: Yes Status: Acute Plan to address problem: Currently on Lovenox. -- Full code status Current Visit: Yes Status: Acute --Morbid obesity (BMI 48.9) Current Visit: Yes Status: Acute Plan to address problem: This increases risk from COVID-19 pneumonia and COVID-19 itself. Patient educated on lifestyle changes upon discharge. Plan of care reviewed with the patient and her nurse Patient is morbidly obese , severe COVID-19 sepsis ,critically ill In severe distress requiring high flow oxygen, very poor prognosis 07/04-patient was on CPAP last night. Now weaned down to 6 L of O2. We closely monitor patient's oxygen saturations with 6 L. Otherwise patient resting comfortably now in bed in prone position. -patient appears to be doing worse than yesterday. Still able to wean down to 6 L however patient became more hypoxic. Overall conditions of morbid obesity, sleep apnea, obesity hypoventilation syndrome. Place patient at extreme risk. Patient is aware of evaluation all questions and concerns answered. Patient will require oxygen upon discharge. History patient was complained of shortness of breath even prior to Covid. Will most likely require home O2 prior to developing Covid. 07/10/2020; patient morbidly obese remains on high flow oxygen, 30 L/100/95% Continuously on high flow oxygen, very poor prognosis, no beds available in ICU for close monitoring Strictly informed the patient not to remove the oxygen Patient is critically ill with continuous requirement of high flow oxygen Multiple comorbidities, very poor prognosis History Interval history: I have seen Ms. Mary Kate Chacon in her room this morning Strict isolation precautions and PPE protocols followed Morbidly obese female patient in mild distress Continues to require high flow oxygen 20 L, on BiPAP Vital signs noted Hospitalist Physical - Constitutional Vitals: Temp Pulse Resp BP Pulse Ox 98.2 F 97 H 26 H 118/55 92 07/10/20 11:37 07/10/20 11:37 07/10/20 11:37 07/10/20 11:37 07/10/20 11:54 General appearance: Present: mild distress, well-nourished, obese (Morbidly obese) - EENT Eyes: Present: PERRL, EOM intact - Neck Neck: Present: supple, normal ROM - Respiratory Respiratory effort: normal Respiratory: bilateral: diminished, negative: rales, rhonchi - Cardiovascular Rhythm: regular Heart Sounds: Present: S1 & S2 - Extremities Extremities: no ischemia, No edema - Abdominal General gastrointestinal: soft, non-tender, non-distended, normal bowel sounds - Integumentary Integumentary: Present: clear, warm - Psychiatric Psychiatric: appropriate mood/affect, cooperative - Neurologic Neurologic: moves all extremities Results - Labs CBC & Chem 7: 07/02/20 22:37 07/08/20 05:16 Labs: Laboratory Last Values WBC 5.3 K/mm3 (4.5-11.0) 07/02/20 22:37 RBC 5.16 M/mm3 (3.65-5.03) H 07/02/20 22:37 Hgb 13.5 gm/dl (10.1-14.3) 07/02/20 22:37 Hct 41.7 % (30.3-42.9) 07/02/20 22:37 MCV 81 fl (79-97) 07/02/20 22:37 MCH 26 pg (28-32) L 07/02/20 22:37 MCHC 32 % (30-34) 07/02/20 22:37 RDW 16.8 % (13.2-15.2) H 07/02/20 22:37 Plt Count 258 K/mm3 (140-440) 07/02/20 22:37 Lymph % (Auto) 29.6 % (13.4-35.0) 07/02/20 22:37 [place] % (Auto) 8.3 % (0.0-7.3) H 07/02/20 22:37 Eos % (Auto) 0.0 % (0.0-4.3) 07/02/20 22:37 Baso % (Auto) 0.3 % (0.0-1.8) 07/02/20 22:37 Lymph # (Auto) 1.6 K/mm3 (1.2-5.4) 07/02/20 22:37 [place] # (Auto) 0.4 K/mm3 (0.0-0.8) 07/02/20 22:37 Eos # (Auto) 0.0 K/mm3 (0.0-0.4) 07/02/20 22:37 Baso # (Auto) 0.0 K/mm3 (0.0-0.1) 07/02/20 22:37 Seg Neutrophils % 61.8 % (40.0-70.0) 07/02/20 22:37 Seg Neutrophils # 3.3 K/mm3 (1.8-7.7) 07/02/20 22:37 D-Dimer 801.22 ng/mlDDU (0-234) H 07/08/20 15:03 ABG pH 7.456 pH Units (7.350-7.450) H 07/04/20 02:44 ABG pCO2 39.9 mm Hg 07/04/20 02:44 ABG pO2 60.7 mm Hg (80.0-90.0) L 07/04/20 02:44 ABG HCO3 27.5 mmol/L (20.0-26.0) H 07/04/20 02:44 ABG O2 Saturation 93.6 % (95.0-99.0) L 07/04/20 02:44 ABG O2 Content 16.4 (0.0-44) 07/04/20 02:44 ABG Base Excess 3.4 mmol/L (-2.0-3.0) H 07/04/20 02:44 ABG Hemoglobin 12.7 gm/dl (12.0-16.0) 07/04/20 02:44 ABG Carboxyhemoglobin 1.7 % (0.0-5.0) 07/04/20 02:44 ABG Methemoglobin 0.5 % (0.0-1.5) 07/04/20 02:44 Oxyhemoglobin 91.6 % (95.0-99.0) L 07/04/20 02:44 FiO2 32 % 07/04/20 02:44 Sodium 137 mmol/L (137-145) 07/08/20 05:16 Potassium 4.4 mmol/L (3.6-5.0) 07/08/20 05:16 Chloride 99.2 mmol/L (98-107) 07/08/20 05:16 Carbon Dioxide 31 mmol/L (22-30) H 07/08/20 05:16 Anion Gap 11 mmol/L 07/08/20 05:16 BUN 10 mg/dL (7-17) 07/08/20 05:16 Creatinine 0.6 mg/dL (0.6-1.2) 07/08/20 05:16 Estimated GFR > 60 ml/min 07/08/20 05:16 BUN/Creatinine Ratio 17 % 07/08/20 05:16 Glucose 112 mg/dL (65-100) H 07/08/20 05:16 POC Glucose 191 mg/dL (70-105) H 07/10/20 17:22 Hemoglobin A1c 7.2 % (4-6) H 07/08/20 16:59 Calcium 8.8 mg/dL (8.4-10.2) 07/08/20 05:16 Magnesium 1.70 mg/dL (1.7-2.3) 07/02/20 22:37 Ferritin 1359.0 ng/mL (10.0-200.0) H 07/08/20 15:03 Total Bilirubin 0.30 mg/dL (0.1-1.2) 07/08/20 05:16 AST 29 units/L (5-40) 07/08/20 05:16 ALT 29 units/L (7-56) 07/08/20 05:16 Alkaline Phosphatase 73 units/L (35-129) 07/08/20 05:16 Lactate Dehydrogenase 384 units/L (91-180) H 07/08/20 15:03 Total Creatine Kinase 384 units/L (30-135) H 07/02/20 22:37 C-Reactive Protein 5.10 mg/dL (0.00-1.30) H 07/08/20 15:03 Total Protein 6.7 g/dL (6.3-8.2) 07/08/20 05:16 Albumin 3.2 g/dL (3.9-5) L 07/08/20 05:16 Albumin/Globulin Ratio 0.9 % 07/08/20 05:16 Procalcitonin < 0.05 ng/mL (<0.15) 07/04/20 13:55 Urine Color Yellow (Yellow) 07/08/20 Unknown Urine Turbidity Clear (Clear) 07/08/20 Unknown Urine pH 7.0 (5.0-7.0) 07/08/20 Unknown Ur Specific [place] 1.015 (1.003-1.030) 07/08/20 Unknown Urine Protein 30 mg/dl mg/dL (Negative) 07/08/20 Unknown Urine Glucose (UA) 150 mg/dL (Negative) 07/08/20 Unknown Urine Ketones Neg mg/dL (Negative) 07/08/20 Unknown Urine Blood Lg (Negative) 07/08/20 Unknown Urine Nitrite Neg (Negative) 07/08/20 Unknown Urine Bilirubin Neg (Negative) 07/08/20 Unknown Urine Urobilinogen 2.0 mg/dL (<2.0) 07/08/20 Unknown Ur Leukocyte Esterase Neg (Negative) 07/08/20 Unknown Urine WBC (Auto) 2.0 /HPF (0.0-6.0) 07/08/20 Unknown Urine RBC (Auto) > 182.0 /HPF (0.0-6.0) 07/08/20 Unknown U Epithel Cells (Auto) 1.0 /HPF (0-13.0) 07/08/20 Unknown Coronavirus (PCR) Positive (Negative) A 07/03/20 10:35 Castaneda/IV: Voiding Method Bedside Commode IV Catheter Type [Right Hand] INT / Saline Lock IV Catheter Type [Left Hand] INT / Saline Lock Active Medications - Current Medications Current Medications: Generic Name Dose Route Start Last Admin Trade Name Freq PRN Reason Stop Dose Admin Acetaminophen 650 mg 07/03/20 03:54 Acetaminophen 325 Mg Tab PO Q4H PRN Pain MILD(1-3)/Fever >100.5/REDMOND Albuterol 2 puff 07/06/20 10:00 07/10/20 17:39 Albuterol 8.5 Gm Mdi Inhalation IH Not Given BIDRT KRISTEN Dextrose 0 ml 07/03/20 03:53 Dextrose 50% In Water (25gm) 50 Ml Syringe IV Q30MIN PRN Hypoglycemia Protocol Enoxaparin Sodium 40 mg 07/03/20 22:00 07/09/20 22:19 Enoxaparin 40 Mg/0.4 Ml Inj SUB-Q 40 mg QDAY@2200 KRISTEN Administration Protocol Insulin Glargine 10 units 07/04/20 22:00 07/09/20 22:19 Insulin Glargine 100 Units/Ml SUB-Q 10 units QHS KRISTEN Administration Insulin Human Lispro 0 unit 07/03/20 07:30 07/10/20 17:54 Insulin Lispro 100 Unit/Ml Vial 3 Ml SUB-Q 2 unit ACHS KRISTEN Administration Protocol Methylprednisolone Sodium Succinate 60 mg 07/09/20 12:00 07/10/20 17:56 Methylprednisolone Sod Succinate 125 Mg/2 Ml Inj IV 60 mg Q6HR KRISTEN Administration Nystatin 1 applic 07/03/20 15:00 07/10/20 09:30 Nystatin Powder 15 Gm TP 1 applic BID KRISTEN Administration Ondansetron HCl 4 mg 07/03/20 03:54 Ondansetron 4 Mg/2 Ml Inj IV Q8H PRN Nausea And Vomiting Sodium Chloride 10 ml 07/03/20 10:00 07/10/20 12:15 Sodium Chloride 0.9% 10 Ml Flush Syringe IV 10 ml BID KRISTEN Administration Sodium Chloride 10 ml 07/03/20 03:54 Sodium Chloride 0.9% 10 Ml Flush Syringe IV PRN PRN LINE FLUSH Sodium Chloride 50 ml 07/09/20 21:00 07/09/20 22:18 Sodium Chloride 0.9% 50 Ml Ivpb IV 07/13/20 21:01 50 ml Q24HR@2100 KRISTEN Administration Tiotropium [place] 1 puff 07/10/20 09:00 07/10/20 17:39 Tiotropium 18 Mcg Cap Inhalation IH Not Given Q24HRT [facility] Nutrition/Malnutrition Assess - Dietary Evaluation Nutrition/Malnutrition Findings: Nutrition Notes Start: 07/03/20 10:41 Freq: Status: Active Protocol: Document 07/09/20 11:00 KRYSTINA (Rec: 07/09/20 11:08 [id number]) Nutrition Notes Initial or Follow up Brief Note Current Diagnosis COPD,Diabetes,Hypertension Other Pertinent Diagnosis pneumonia, COVID Current Diet Cardiac, Consistent CHO Labs/Tests A1c 7.2% POC BG 169 Pertinent Medications Decadron Height 5 ft 6 in Weight 135.8 kg Usual Body Weight 136.36 kg [place] Body Weight (kg) 59.09 BMI 48.3 Weight Status Morbidly Obese Subjective/Other Information FU for diet education. Pt denied education but would like handouts. RD to give to RN to give to pt. Pt reports eating 75% of meals due to being unable to chew food. Pt would like a mechanical soft diet. #1 Nutrition Diagnosis Food and nutrition-related knowledge deficit Etiology DM As Evidenced by Signs and Symptoms pt refused DM education Diagnosis Progress(for reassessment Resolved documentation) Nutrition Intervention Change Diet Order: Cardiac, Consistent CHO with mechanical soft Teaching Recipient Patient Learning Readiness Poor Teaching Methods Handout Response to Teaching Refuses to learn Education Handouts Provided Planning Healthy Meals Barriers to Learning Motivation RD phone number provided Yes Patient aware of follow up options Yes Actions To Overcome Barriers Other Revisit per MD consult or patient Sign Off request:
--- NOTE | 2020-07-10 20:18 | Progress Note ---
Assessment and Plan Cultures: COVID positive A/P: 69 yo F PMHx HTN, DM2 admitted with COVID-19 #Severe COVID-19 pneumonia: Patient presented with a week of symptoms, hypoxic currently on HFNC. #Acute hypoxemic respiratory failure: Likely secondary to COVID-19 infection. Currently on HFNC #DM2: tight glycemic control for best outcomes. Recs: -Patient already completed course of remdesivir. New course stopped. -continue steroids per pulmonary. -Anticoagulation per hospital protocol -Proning as able. -Obtain daily inflammatory markers - ferritin, Ddimer, CRP, LDH Infectious disease will sign off. Please call with questions. Cassandra Rivera MD [facility] ([facility]) O: [phone] F: [phone] Subjective Date of service: 07/10/20 Principal diagnosis: COVID-19 pneumonia Interval history: Afebrile, no acute change present. Noted the patient had previously completed a course of remdesivir earlier in her admission. On facemask oxygen. Objective - Exam Narrative Exam: Physical exam deferred due to PPE conservation strategy. Please refer to primary team's note. - Constitutional Vitals: Vital Signs Temp Pulse Resp BP Pulse Ox 98.2 F 101 H 24 114/64 97 07/10/20 17:24 07/10/20 19:01 07/10/20 19:01 07/10/20 17:24 07/10/20 19:01 Temperature -Last 24 Hours Temperature 98.2 F Temperature 98.2 F Temperature 98.6 F Temperature 98.6 F - Labs CBC & Chem 7: 07/02/20 22:37 07/08/20 05:16 Labs: Abnormal lab results 07/09/20 07/10/20 07/10/20 Range/Units 22:17 08:14 11:34 POC Glucose 291 H 153 H 310 H (70-105) mg/dL 07/10/20 Range/Units 17:22 POC Glucose 191 H (70-105) mg/dL
[2020-07-10] MEDS ORDERED: REMDESIVIR 100 MG in SODIUM CHLORIDE 0.9% 250ML 250 ML IV SCH (21:00)
[2020-07-10] MEDS: SODIUM CHLORIDE 0.9% 50 ML IVPB IV SCH (21:40)
[2020-07-10] MEDS: ENOXAPARIN 40 MG/0.4 ML INJ SUB-Q SCH (21:41)
[2020-07-10] MEDS: INSULIN GLARGINE 100 UNITS/ML SUB-Q SCH (21:45)
[2020-07-11] MEDS: methylPREDNISolone Sod Succinate 125 MG/2 ML INJ IV SCH ×4 (05:37→23:02)
[2020-07-11] MEDS: TIOTROPIUM 18 MCG CAP INHALATION IH SCH (08:55)
[2020-07-11] MEDS: ALBUTEROL 8.5 GM MDI INHALATION IH SCH ×2 (08:55→20:10)
[2020-07-11] MEDS: INSULIN LISPRO 100 UNIT/ML VIAL 3 mL SUB-Q SCH ×4 (09:46→21:45)
[2020-07-11] MEDS ORDERED: FUROSEMIDE 40 MG/4 ML INJ IV NR (10:47)
--- NOTE | 2020-07-11 10:47 | Progress Note ---
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 1. Continue Solumedrol 60q6 2. Agree with albuterol puffers 3. Ordered for proning during the day and sleep prone at night if possible 4. Limit volume status, and no additional IVF's if possible. Will give lasix again today. 5. Overall prognosis is guarded. Subjective Date of service: 07/11/20 Principal diagnosis: COVID-19 pneumonia Interval history: No acute events. Down to 60% and still on 20 liters. Tolerated lasix well yesterday. Objective Vital Signs - 12hr 07/11/20 07/11/20 07/11/20 02:23 04:23 08:53 Temperature 98.0 F Pulse Rate 74 87 Pulse Rate [ Posterior Bilateral Throughout] Respiratory 22 24 Rate Respiratory Rate [Posterior Bilateral Throughout] Blood Pressure 175/95 O2 Sat by Pulse 96 96 93 Oximetry 07/11/20 08:54 Temperature Pulse Rate Pulse Rate [ 106 H Posterior Bilateral Throughout] Respiratory Rate Respiratory 26 H Rate [Posterior Bilateral Throughout] Blood Pressure O2 Sat by Pulse Oximetry CBC and BMP: 07/02/20 22:37 07/08/20 05:16 ABG, PT/INR, D-dimer: ABG ABG pH 7.456 pH Units (7.350-7.450) H 07/04/20 02:44 ABG pCO2 39.9 mm Hg 07/04/20 02:44 ABG pO2 60.7 mm Hg (80.0-90.0) L 07/04/20 02:44 ABG O2 Saturation 93.6 % (95.0-99.0) L 07/04/20 02:44 PT/INR, D-dimer D-Dimer 801.22 ng/mlDDU (0-234) H 07/08/20 15:03 Abnormal lab findings: Abnormal Labs 07/02/20 07/02/20 07/02/20 22:37 22:37 22:37 RBC 5.16 H MCH 26 L RDW 16.8 H [place] % (Auto) 8.3 H D-Dimer ABG pH ABG pO2 ABG HCO3 ABG O2 Saturation ABG Base Excess Oxyhemoglobin Sodium 134 L Chloride 94.8 L Carbon Dioxide Glucose 171 H POC Glucose Hemoglobin A1c Ferritin Lactate Dehydrogenase Total Creatine Kinase 384 H C-Reactive Protein Albumin 3.6 L Coronavirus (PCR) 07/03/20 07/03/20 07/03/20 03:12 03:14 03:14 RBC MCH RDW [place] % (Auto) D-Dimer 626.31 H ABG pH ABG pO2 ABG HCO3 ABG O2 Saturation ABG Base Excess Oxyhemoglobin Sodium Chloride Carbon Dioxide Glucose 162 H POC Glucose 166 H Hemoglobin A1c Ferritin Lactate Dehydrogenase 337 H Total Creatine Kinase C-Reactive Protein 9.30 H Albumin Coronavirus (PCR) 07/03/20 07/03/20 07/03/20 03:14 08:20 10:35 RBC MCH RDW [place] % (Auto) D-Dimer ABG pH ABG pO2 ABG HCO3 ABG O2 Saturation ABG Base Excess Oxyhemoglobin Sodium Chloride Carbon Dioxide Glucose POC Glucose 157 H Hemoglobin A1c Ferritin 1568.0 H Lactate Dehydrogenase Total Creatine Kinase C-Reactive Protein Albumin Coronavirus (PCR) Positive A 07/03/20 07/03/20 07/03/20 11:40 16:46 22:33 RBC MCH RDW [place] % (Auto) D-Dimer ABG pH ABG pO2 ABG HCO3 ABG O2 Saturation ABG Base Excess Oxyhemoglobin Sodium Chloride Carbon Dioxide Glucose POC Glucose 220 H 188 H 162 H Hemoglobin A1c Ferritin Lactate Dehydrogenase Total Creatine Kinase C-Reactive Protein Albumin Coronavirus (PCR) 07/04/20 07/04/20 07/04/20 02:44 11:39 13:55 RBC MCH RDW [place] % (Auto) D-Dimer 397.35 H ABG pH 7.456 H ABG pO2 60.7 L ABG HCO3 27.5 H ABG O2 Saturation 93.6 L ABG Base Excess 3.4 H Oxyhemoglobin 91.6 L Sodium Chloride Carbon Dioxide Glucose POC Glucose 208 H Hemoglobin A1c Ferritin Lactate Dehydrogenase Total Creatine Kinase C-Reactive Protein Albumin Coronavirus (PCR) 07/04/20 07/04/20 07/04/20 13:55 13:55 17:17 RBC MCH RDW [place] % (Auto) D-Dimer ABG pH ABG pO2 ABG HCO3 ABG O2 Saturation ABG Base Excess Oxyhemoglobin Sodium Chloride Carbon Dioxide Glucose 188 H POC Glucose 139 H Hemoglobin A1c Ferritin 1691.0 H Lactate Dehydrogenase 349 H Total Creatine Kinase C-Reactive Protein 4.80 H Albumin Coronavirus (PCR) 07/04/20 07/05/20 07/05/20 22:01 12:28 16:45 RBC MCH RDW [place] % (Auto) D-Dimer ABG pH ABG pO2 ABG HCO3 ABG O2 Saturation ABG Base Excess Oxyhemoglobin Sodium Chloride Carbon Dioxide Glucose POC Glucose 143 H 113 H 186 H Hemoglobin A1c Ferritin Lactate Dehydrogenase Total Creatine Kinase C-Reactive Protein Albumin Coronavirus (PCR) 07/05/20 07/06/20 07/06/20 21:53 11:49 18:52 RBC MCH RDW [place] % (Auto) D-Dimer ABG pH ABG pO2 ABG HCO3 ABG O2 Saturation ABG Base Excess Oxyhemoglobin Sodium Chloride Carbon Dioxide Glucose POC Glucose 167 H 106 H 235 H Hemoglobin A1c Ferritin Lactate Dehydrogenase Total Creatine Kinase C-Reactive Protein Albumin Coronavirus (PCR) 07/06/20 07/07/20 07/07/20 22:24 05:19 11:09 RBC MCH RDW [place] % (Auto) D-Dimer ABG pH ABG pO2 ABG HCO3 ABG O2 Saturation ABG Base Excess Oxyhemoglobin Sodium Chloride Carbon Dioxide 31 H Glucose 122 H POC Glucose 201 H 132 H Hemoglobin A1c Ferritin Lactate Dehydrogenase Total Creatine Kinase C-Reactive Protein Albumin 3.2 L Coronavirus (PCR) 07/07/20 07/07/20 07/08/20 16:03 21:00 05:16 RBC MCH RDW [place] % (Auto) D-Dimer ABG pH ABG pO2 ABG HCO3 ABG O2 Saturation ABG Base Excess Oxyhemoglobin Sodium Chloride Carbon Dioxide 31 H Glucose 112 H POC Glucose 162 H 238 H Hemoglobin A1c Ferritin Lactate Dehydrogenase Total Creatine Kinase C-Reactive Protein Albumin 3.2 L Coronavirus (PCR) 07/08/20 07/08/20 07/08/20 11:51 15:03 15:03 RBC MCH RDW [place] % (Auto) D-Dimer 801.22 H ABG pH ABG pO2 ABG HCO3 ABG O2 Saturation ABG Base Excess Oxyhemoglobin Sodium Chloride Carbon Dioxide Glucose POC Glucose 121 H Hemoglobin A1c Ferritin 1359.0 H Lactate Dehydrogenase Total Creatine Kinase C-Reactive Protein Albumin Coronavirus (PCR) 07/08/20 07/08/20 07/08/20 15:03 16:55 16:59 RBC MCH RDW [place] % (Auto) D-Dimer ABG pH ABG pO2 ABG HCO3 ABG O2 Saturation ABG Base Excess Oxyhemoglobin Sodium Chloride Carbon Dioxide Glucose POC Glucose 241 H Hemoglobin A1c 7.2 H Ferritin Lactate Dehydrogenase 384 H Total Creatine Kinase C-Reactive Protein 5.10 H Albumin Coronavirus (PCR) 07/08/20 07/09/20 07/09/20 22:20 11:04 16:41 RBC MCH RDW [place] % (Auto) D-Dimer ABG pH ABG pO2 ABG HCO3 ABG O2 Saturation ABG Base Excess Oxyhemoglobin Sodium Chloride Carbon Dioxide Glucose POC Glucose 169 H 140 H 281 H Hemoglobin A1c Ferritin Lactate Dehydrogenase Total Creatine Kinase C-Reactive Protein Albumin Coronavirus (PCR) 07/09/20 07/10/20 07/10/20 22:17 08:14 11:34 RBC MCH RDW [place] % (Auto) D-Dimer ABG pH ABG pO2 ABG HCO3 ABG O2 Saturation ABG Base Excess Oxyhemoglobin Sodium Chloride Carbon Dioxide Glucose POC Glucose 291 H 153 H 310 H Hemoglobin A1c Ferritin Lactate Dehydrogenase Total Creatine Kinase C-Reactive Protein Albumin Coronavirus (PCR) 07/10/20 07/10/20 07/11/20 17:22 21:44 07:42 RBC MCH RDW [place] % (Auto) D-Dimer ABG pH ABG pO2 ABG HCO3 ABG O2 Saturation ABG Base Excess Oxyhemoglobin Sodium Chloride Carbon Dioxide Glucose POC Glucose 191 H 283 H 187 H Hemoglobin A1c Ferritin Lactate Dehydrogenase Total Creatine Kinase C-Reactive Protein Albumin Coronavirus (PCR)
[2020-07-11] MEDS: NYSTATIN POWDER 15 GM TP SCH ×2 (13:58→21:48)
--- NOTE | 2020-07-11 18:30 | Progress Note ---
History Interval history: I have seen and examined the patient at the bedside Patient's chart and medications reviewed Isolation precautions and strict PPE protocols observed Patient continues to require high flow oxygen 20L/60%/O2 sat 92 Morbidly obese In mild distress Vital signs reviewed Hospitalist Physical - Constitutional Vitals: Temp Pulse Resp BP Pulse Ox 98.1 F 97 H 24 124/69 93 07/11/20 17:40 07/11/20 17:40 07/11/20 17:40 07/11/20 17:40 07/11/20 17:40 General appearance: Present: mild distress, well-nourished, obese (Morbidly obese) Results - Labs CBC & Chem 7: 07/02/20 22:37 07/12/20 05:00 Labs: Laboratory Last Values WBC 5.3 K/mm3 (4.5-11.0) 07/02/20 22:37 RBC 5.16 M/mm3 (3.65-5.03) H 07/02/20 22:37 Hgb 13.5 gm/dl (10.1-14.3) 07/02/20 22:37 Hct 41.7 % (30.3-42.9) 07/02/20 22:37 MCV 81 fl (79-97) 07/02/20 22:37 MCH 26 pg (28-32) L 07/02/20 22:37 MCHC 32 % (30-34) 07/02/20 22:37 RDW 16.8 % (13.2-15.2) H 07/02/20 22:37 Plt Count 258 K/mm3 (140-440) 07/02/20 22:37 Lymph % (Auto) 29.6 % (13.4-35.0) 07/02/20 22:37 [place] % (Auto) 8.3 % (0.0-7.3) H 07/02/20 22:37 Eos % (Auto) 0.0 % (0.0-4.3) 07/02/20 22:37 Baso % (Auto) 0.3 % (0.0-1.8) 07/02/20 22:37 Lymph # (Auto) 1.6 K/mm3 (1.2-5.4) 07/02/20 22:37 [place] # (Auto) 0.4 K/mm3 (0.0-0.8) 07/02/20 22:37 Eos # (Auto) 0.0 K/mm3 (0.0-0.4) 07/02/20 22:37 Baso # (Auto) 0.0 K/mm3 (0.0-0.1) 07/02/20 22:37 Seg Neutrophils % 61.8 % (40.0-70.0) 07/02/20 22:37 Seg Neutrophils # 3.3 K/mm3 (1.8-7.7) 07/02/20 22:37 D-Dimer 801.22 ng/mlDDU (0-234) H 07/08/20 15:03 ABG pH 7.456 pH Units (7.350-7.450) H 07/04/20 02:44 ABG pCO2 39.9 mm Hg 07/04/20 02:44 ABG pO2 60.7 mm Hg (80.0-90.0) L 07/04/20 02:44 ABG HCO3 27.5 mmol/L (20.0-26.0) H 07/04/20 02:44 ABG O2 Saturation 93.6 % (95.0-99.0) L 07/04/20 02:44 ABG O2 Content 16.4 (0.0-44) 07/04/20 02:44 ABG Base Excess 3.4 mmol/L (-2.0-3.0) H 07/04/20 02:44 ABG Hemoglobin 12.7 gm/dl (12.0-16.0) 07/04/20 02:44 ABG Carboxyhemoglobin 1.7 % (0.0-5.0) 07/04/20 02:44 ABG Methemoglobin 0.5 % (0.0-1.5) 07/04/20 02:44 Oxyhemoglobin 91.6 % (95.0-99.0) L 07/04/20 02:44 FiO2 32 % 07/04/20 02:44 Sodium 137 mmol/L (137-145) 07/08/20 05:16 Potassium 4.4 mmol/L (3.6-5.0) 07/08/20 05:16 Chloride 99.2 mmol/L (98-107) 07/08/20 05:16 Carbon Dioxide 31 mmol/L (22-30) H 07/08/20 05:16 Anion Gap 11 mmol/L 07/08/20 05:16 BUN 10 mg/dL (7-17) 07/08/20 05:16 Creatinine 0.6 mg/dL (0.6-1.2) 07/08/20 05:16 Estimated GFR > 60 ml/min 07/08/20 05:16 BUN/Creatinine Ratio 17 % 07/08/20 05:16 Glucose 112 mg/dL (65-100) H 07/08/20 05:16 POC Glucose 341 mg/dL (70-105) H 07/11/20 17:38 Hemoglobin A1c 7.2 % (4-6) H 07/08/20 16:59 Calcium 8.8 mg/dL (8.4-10.2) 07/08/20 05:16 Magnesium 1.70 mg/dL (1.7-2.3) 07/02/20 22:37 Ferritin 1359.0 ng/mL (10.0-200.0) H 07/08/20 15:03 Total Bilirubin 0.30 mg/dL (0.1-1.2) 07/08/20 05:16 AST 29 units/L (5-40) 07/08/20 05:16 ALT 29 units/L (7-56) 07/08/20 05:16 Alkaline Phosphatase 73 units/L (35-129) 07/08/20 05:16 Lactate Dehydrogenase 384 units/L (91-180) H 07/08/20 15:03 Total Creatine Kinase 384 units/L (30-135) H 07/02/20 22:37 C-Reactive Protein 5.10 mg/dL (0.00-1.30) H 07/08/20 15:03 Total Protein 6.7 g/dL (6.3-8.2) 07/08/20 05:16 Albumin 3.2 g/dL (3.9-5) L 07/08/20 05:16 Albumin/Globulin Ratio 0.9 % 07/08/20 05:16 Procalcitonin < 0.05 ng/mL (<0.15) 07/04/20 13:55 Urine Color Yellow (Yellow) 07/08/20 Unknown Urine Turbidity Clear (Clear) 07/08/20 Unknown Urine pH 7.0 (5.0-7.0) 07/08/20 Unknown Ur Specific [place] 1.015 (1.003-1.030) 07/08/20 Unknown Urine Protein 30 mg/dl mg/dL (Negative) 07/08/20 Unknown Urine Glucose (UA) 150 mg/dL (Negative) 07/08/20 Unknown Urine Ketones Neg mg/dL (Negative) 07/08/20 Unknown Urine Blood Lg (Negative) 07/08/20 Unknown Urine Nitrite Neg (Negative) 07/08/20 Unknown Urine Bilirubin Neg (Negative) 07/08/20 Unknown Urine Urobilinogen 2.0 mg/dL (<2.0) 07/08/20 Unknown Ur Leukocyte Esterase Neg (Negative) 07/08/20 Unknown Urine WBC (Auto) 2.0 /HPF (0.0-6.0) 07/08/20 Unknown Urine RBC (Auto) > 182.0 /HPF (0.0-6.0) 07/08/20 Unknown U Epithel Cells (Auto) 1.0 /HPF (0-13.0) 07/08/20 Unknown Coronavirus (PCR) Positive (Negative) A 07/03/20 10:35 Castaneda/IV: Voiding Method Bedside Commode IV Catheter Type [Right Hand] INT / Saline Lock IV Catheter Type [Left Hand] INT / Saline Lock Active Medications - Current Medications Current Medications: Generic Name Dose Route Start Last Admin Trade Name Freq PRN Reason Stop Dose Admin Acetaminophen 650 mg 07/03/20 03:54 07/10/20 22:29 Acetaminophen 325 Mg Tab PO 650 mg Q4H PRN Administration Pain MILD(1-3)/Fever >100.5/REDMOND Albuterol 2 puff 07/06/20 10:00 07/11/20 08:55 Albuterol 8.5 Gm Mdi Inhalation IH 2 puff BIDRT KRISTEN Administration Dextrose 0 ml 07/03/20 03:53 Dextrose 50% In Water (25gm) 50 Ml Syringe IV Q30MIN PRN Hypoglycemia Protocol Enoxaparin Sodium 40 mg 07/03/20 22:00 07/10/20 21:41 Enoxaparin 40 Mg/0.4 Ml Inj SUB-Q 40 mg QDAY@2200 KRISTEN Administration Protocol Furosemide 40 mg 07/11/20 10:47 07/11/20 13:52 Furosemide 40 Mg/4 Ml Inj IV 07/11/20 23:00 40 mg ONCE NR Administration Insulin Glargine 10 units 07/04/20 22:00 07/10/20 21:45 Insulin Glargine 100 Units/Ml SUB-Q 10 units QHS KRISTEN Administration Insulin Human Lispro 0 unit 07/03/20 07:30 07/11/20 18:00 Insulin Lispro 100 Unit/Ml Vial 3 Ml SUB-Q 6 unit ACHS KRISTEN Administration Protocol Methylprednisolone Sodium Succinate 60 mg 07/09/20 12:00 07/11/20 18:00 Methylprednisolone Sod Succinate 125 Mg/2 Ml Inj IV 60 mg Q6HR KRISTEN Administration Nystatin 1 applic 07/03/20 15:00 07/11/20 13:58 Nystatin Powder 15 Gm TP 1 applic BID KRISTEN Administration Ondansetron HCl 4 mg 07/03/20 03:54 Ondansetron 4 Mg/2 Ml Inj IV Q8H PRN Nausea And Vomiting Sodium Chloride 10 ml 07/03/20 10:00 07/11/20 13:49 Sodium Chloride 0.9% 10 Ml Flush Syringe IV 10 ml BID KRISTEN Administration Sodium Chloride 10 ml 07/03/20 03:54 Sodium Chloride 0.9% 10 Ml Flush Syringe IV PRN PRN LINE FLUSH Sodium Chloride 50 ml 07/09/20 21:00 07/10/20 21:40 Sodium Chloride 0.9% 50 Ml Ivpb IV 07/13/20 21:01 50 ml Q24HR@2100 KRISTEN Administration Tiotropium [place] 1 puff 07/10/20 09:00 07/11/20 08:55 Tiotropium 18 Mcg Cap Inhalation IH 1 puff Q24HRT KRISTEN Administration Nutrition/Malnutrition Assess - Dietary Evaluation Nutrition/Malnutrition Findings: Nutrition Notes Start: 07/03/20 10:4 1 Freq: Status: Active Protocol: Document 07/09/20 11:00 KRYSTINA (Rec: 07/09/20 11:08 [id number]) Nutrition Notes Initial or Follow up Brief Note Current Diagnosis COPD,Diabetes,Hypertension Other Pertinent Diagnosis pneumonia, COVID Current Diet Cardiac, Consistent CHO Labs/Tests A1c 7.2% POC BG 169 Pertinent Medications Decadron Height 5 ft 6 in Weight 135.8 kg Usual Body Weight 136.36 kg [place] Body Weight (kg) 59.09 BMI 48.3 Weight Status Morbidly Obese Subjective/Other Information FU for diet education. Pt denied education but would like handouts. RD to give to RN to give to pt. Pt reports eating 75% of meals due to being unable to chew food. Pt would like a mechanical soft diet. #1 Nutrition Diagnosis Food and nutrition-related knowledge deficit Etiology DM As Evidenced by Signs and Symptoms pt refused DM education Diagnosis Progress(for reassessment Resolved documentation) Nutrition Intervention Change Diet Order: Cardiac, Consistent CHO with mechanical soft Teaching Recipient Patient Learning Readiness Poor Teaching Methods Handout Response to Teaching Refuses to learn Education Handouts Provided Planning Healthy Meals Barriers to Learning Motivation RD phone number provided Yes Patient aware of follow up options Yes Actions To Overcome Barriers Other Revisit per MD consult or patient Sign Off request:
[2020-07-11] MEDS: SODIUM CHLORIDE 0.9% 50 ML IVPB IV SCH (21:42)
[2020-07-11] MEDS: ENOXAPARIN 40 MG/0.4 ML INJ SUB-Q SCH (21:42)
[2020-07-11] MEDS: INSULIN GLARGINE 100 UNITS/ML SUB-Q SCH (21:43)
[2020-07-12] MEDS: methylPREDNISolone Sod Succinate 125 MG/2 ML INJ IV SCH ×3 (05:40→17:24)
[2020-07-12 06:41] LABS: Blood Urea Nitrogen 20 mg/dL (7-17); Calcium 8.8 mg/dL (8.4-10.2); Hemolysis Index 17
[2020-07-12 06:55] LABS: BUN/Creatinine Ratio 29
[2020-07-12] MEDS: ALBUTEROL 8.5 GM MDI INHALATION IH SCH ×2 (09:37→21:53)
[2020-07-12] MEDS: TIOTROPIUM 18 MCG CAP INHALATION IH SCH (09:47)
[2020-07-12] MEDS: INSULIN LISPRO 100 UNIT/ML VIAL 3 mL SUB-Q SCH ×4 (10:26→22:39)
[2020-07-12] MEDS: NYSTATIN POWDER 15 GM TP SCH ×2 (10:28→22:30)
--- NOTE | 2020-07-12 11:57 | Progress Note ---
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 1. Continue Solumedrol 60q6, once on lower flow will start to decrease Solumedrol. Continue PPV at night given RADHA 2. Agree with albuterol puffers 3. Ordered for proning during the day and sleep prone at night if possible 4. Limit volume status, and no additional IVF's if possible. Will give lasix again today as she tolerated well. 5. Overall prognosis is guarded. Subjective Date of service: 07/12/20 Principal diagnosis: COVID-19 pneumonia Interval history: Now down to 10 liters and 60%. Good sats. Tolerated lasix and labs stable. Objective Vital Signs - 12hr 07/12/20 07/12/20 07/12/20 02:50 04:18 09:32 Temperature 122.0 F H Pulse Rate 88 88 Respiratory 24 16 Rate Blood Pressure 168/99 O2 Sat by Pulse 98 92 Oximetry 07/12/20 10:37 Temperature Pulse Rate Respiratory 16 Rate Blood Pressure O2 Sat by Pulse Oximetry CBC and BMP: 07/02/20 22:37 07/12/20 05:00 ABG, PT/INR, D-dimer: ABG ABG pH 7.456 pH Units (7.350-7.450) H 07/04/20 02:44 ABG pCO2 39.9 mm Hg 07/04/20 02:44 ABG pO2 60.7 mm Hg (80.0-90.0) L 07/04/20 02:44 ABG O2 Saturation 93.6 % (95.0-99.0) L 07/04/20 02:44 PT/INR, D-dimer D-Dimer 801.22 ng/mlDDU (0-234) H 07/08/20 15:03 Abnormal lab findings: Abnormal Labs 07/02/20 07/02/20 07/02/20 22:37 22:37 22:37 RBC 5.16 H MCH 26 L RDW 16.8 H [place] % (Auto) 8.3 H D-Dimer ABG pH ABG pO2 ABG HCO3 ABG O2 Saturation ABG Base Excess Oxyhemoglobin Sodium 134 L Chloride 94.8 L Carbon Dioxide BUN Glucose 171 H POC Glucose Hemoglobin A1c Ferritin Lactate Dehydrogenase Total Creatine Kinase 384 H C-Reactive Protein Albumin 3.6 L Coronavirus (PCR) 07/03/20 07/03/20 07/03/20 03:12 03:14 03:14 RBC MCH RDW [place] % (Auto) D-Dimer 626.31 H ABG pH ABG pO2 ABG HCO3 ABG O2 Saturation ABG Base Excess Oxyhemoglobin Sodium Chloride Carbon Dioxide BUN Glucose 162 H POC Glucose 166 H Hemoglobin A1c Ferritin Lactate Dehydrogenase 337 H Total Creatine Kinase C-Reactive Protein 9.30 H Albumin Coronavirus (PCR) 07/03/20 07/03/20 07/03/20 03:14 08:20 10:35 RBC MCH RDW [place] % (Auto) D-Dimer ABG pH ABG pO2 ABG HCO3 ABG O2 Saturation ABG Base Excess Oxyhemoglobin Sodium Chloride Carbon Dioxide BUN Glucose POC Glucose 157 H Hemoglobin A1c Ferritin 1568.0 H Lactate Dehydrogenase Total Creatine Kinase C-Reactive Protein Albumin Coronavirus (PCR) Positive A 07/03/20 07/03/20 07/03/20 11:40 16:46 22:33 RBC MCH RDW [place] % (Auto) D-Dimer ABG pH ABG pO2 ABG HCO3 ABG O2 Saturation ABG Base Excess Oxyhemoglobin Sodium Chloride Carbon Dioxide BUN Glucose POC Glucose 220 H 188 H 162 H Hemoglobin A1c Ferritin Lactate Dehydrogenase Total Creatine Kinase C-Reactive Protein Albumin Coronavirus (PCR) 07/04/20 07/04/20 07/04/20 02:44 11:39 13:55 RBC MCH RDW [place] % (Auto) D-Dimer 397.35 H ABG pH 7.456 H ABG pO2 60.7 L ABG HCO3 27.5 H ABG O2 Saturation 93.6 L ABG Base Excess 3.4 H Oxyhemoglobin 91.6 L Sodium Chloride Carbon Dioxide BUN Glucose POC Glucose 208 H Hemoglobin A1c Ferritin Lactate Dehydrogenase Total Creatine Kinase C-Reactive Protein Albumin Coronavirus (PCR) 07/04/20 07/04/20 07/04/20 13:55 13:55 17:17 RBC MCH RDW [place] % (Auto) D-Dimer ABG pH ABG pO2 ABG HCO3 ABG O2 Saturation ABG Base Excess Oxyhemoglobin Sodium Chloride Carbon Dioxide BUN Glucose 188 H POC Glucose 139 H Hemoglobin A1c Ferritin 1691.0 H Lactate Dehydrogenase 349 H Total Creatine Kinase C-Reactive Protein 4.80 H Albumin Coronavirus (PCR) 07/04/20 07/05/20 07/05/20 22:01 12:28 16:45 RBC MCH RDW [place] % (Auto) D-Dimer ABG pH ABG pO2 ABG HCO3 ABG O2 Saturation ABG Base Excess Oxyhemoglobin Sodium Chloride Carbon Dioxide BUN Glucose POC Glucose 143 H 113 H 186 H Hemoglobin A1c Ferritin Lactate Dehydrogenase Total Creatine Kinase C-Reactive Protein Albumin Coronavirus (PCR) 07/05/20 07/06/20 07/06/20 21:53 11:49 18:52 RBC MCH RDW [place] % (Auto) D-Dimer ABG pH ABG pO2 ABG HCO3 ABG O2 Saturation ABG Base Excess Oxyhemoglobin Sodium Chloride Carbon Dioxide BUN Glucose POC Glucose 167 H 106 H 235 H Hemoglobin A1c Ferritin Lactate Dehydrogenase Total Creatine Kinase C-Reactive Protein Albumin Coronavirus (PCR) 07/06/20 07/07/20 07/07/20 22:24 05:19 11:09 RBC MCH RDW [place] % (Auto) D-Dimer ABG pH ABG pO2 ABG HCO3 ABG O2 Saturation ABG Base Excess Oxyhemoglobin Sodium Chloride Carbon Dioxide 31 H BUN Glucose 122 H POC Glucose 201 H 132 H Hemoglobin A1c Ferritin Lactate Dehydrogenase Total Creatine Kinase C-Reactive Protein Albumin 3.2 L Coronavirus (PCR) 07/07/20 07/07/20 07/08/20 16:03 21:00 05:16 RBC MCH RDW [place] % (Auto) D-Dimer ABG pH ABG pO2 ABG HCO3 ABG O2 Saturation ABG Base Excess Oxyhemoglobin Sodium Chloride Carbon Dioxide 31 H BUN Glucose 112 H POC Glucose 162 H 238 H Hemoglobin A1c Ferritin Lactate Dehydrogenase Total Creatine Kinase C-Reactive Protein Albumin 3.2 L Coronavirus (PCR) 07/08/20 07/08/20 07/08/20 11:51 15:03 15:03 RBC MCH RDW [place] % (Auto) D-Dimer 801.22 H ABG pH ABG pO2 ABG HCO3 ABG O2 Saturation ABG Base Excess Oxyhemoglobin Sodium Chloride Carbon Dioxide BUN Glucose POC Glucose 121 H Hemoglobin A1c Ferritin 1359.0 H Lactate Dehydrogenase Total Creatine Kinase C-Reactive Protein Albumin Coronavirus (PCR) 07/08/20 07/08/20 07/08/20 15:03 16:55 16:59 RBC MCH RDW [place] % (Auto) D-Dimer ABG pH ABG pO2 ABG HCO3 ABG O2 Saturation ABG Base Excess Oxyhemoglobin Sodium Chloride Carbon Dioxide BUN Glucose POC Glucose 241 H Hemoglobin A1c 7.2 H Ferritin Lactate Dehydrogenase 384 H Total Creatine Kinase C-Reactive Protein 5.10 H Albumin Coronavirus (PCR) 07/08/20 07/09/20 07/09/20 22:20 11:04 16:41 RBC MCH RDW [place] % (Auto) D-Dimer ABG pH ABG pO2 ABG HCO3 ABG O2 Saturation ABG Base Excess Oxyhemoglobin Sodium Chloride Carbon Dioxide BUN Glucose POC Glucose 169 H 140 H 281 H Hemoglobin A1c Ferritin Lactate Dehydrogenase Total Creatine Kinase C-Reactive Protein Albumin Coronavirus (PCR) 07/09/20 07/10/20 07/10/20 22:17 08:14 11:34 RBC MCH RDW [place] % (Auto) D-Dimer ABG pH ABG pO2 ABG HCO3 ABG O2 Saturation ABG Base Excess Oxyhemoglobin Sodium Chloride Carbon Dioxide BUN Glucose POC Glucose 291 H 153 H 310 H Hemoglobin A1c Ferritin Lactate Dehydrogenase Total Creatine Kinase C-Reactive Protein Albumin Coronavirus (PCR) 07/10/20 07/10/20 07/11/20 17:22 21:44 07:42 RBC MCH RDW [place] % (Auto) D-Dimer ABG pH ABG pO2 ABG HCO3 ABG O2 Saturation ABG Base Excess Oxyhemoglobin Sodium Chloride Carbon Dioxide BUN Glucose POC Glucose 191 H 283 H 187 H Hemoglobin A1c Ferritin Lactate Dehydrogenase Total Creatine Kinase C-Reactive Protein Albumin Coronavirus (PCR) 07/11/20 07/11/20 07/11/20 11:48 17:38 21:15 RBC MCH RDW [place] % (Auto) D-Dimer ABG pH ABG pO2 ABG HCO3 ABG O2 Saturation ABG Base Excess Oxyhemoglobin Sodium Chloride Carbon Dioxide BUN Glucose POC Glucose 323 H 341 H 340 H Hemoglobin A1c Ferritin Lactate Dehydrogenase Total Creatine Kinase C-Reactive Protein Albumin Coronavirus (PCR) 07/12/20 07/12/20 07/12/20 05:00 07:51 11:46 RBC MCH RDW [place] % (Auto) D-Dimer ABG pH ABG pO2 ABG HCO3 ABG O2 Saturation ABG Base Excess Oxyhemoglobin Sodium 132 L Chloride 94.0 L Carbon Dioxide BUN 20 H Glucose 254 H POC Glucose 238 H 323 H Hemoglobin A1c Ferritin Lactate Dehydrogenase Total Creatine Kinase C-Reactive Protein Albumin Coronavirus (PCR)
[2020-07-12] MEDS ORDERED: FUROSEMIDE 40 MG/4 ML INJ IV NR (12:00)
--- NOTE | 2020-07-12 19:06 | Progress Note ---
Assessment and Plan Assessment and Plan Assessment and plan: History of obstructive sleep apnea/on CPAP at night, noncompliant Covid positive test; 07/03/2020 --Severe hypoxemia; secondary to pneumonia due to Covid Oxygen titrate O2 sats more than 90%, on high flow oxygen 30L /100 %/93 O2sat Nebulizers, prone position, pulmonary consulted -- Pneumonia due to COVID-19 virus Current Visit: Yes Status: Acute Plan to address problem: Contact and droplet isolation Continue dexamethasone for total 10 days Continue remdesivir complete 4 doses Prone position as tolerated Trend inflammatory markers home oxygen evaluation Discharge planning when medically stable Patient is severely hypoxemic requiring high flow oxygen ID pulmonary consulted Follow recommendations --Severe sepsis secondary to Covid pneumonia Current Visit: Yes Status: Acute . Plan to address problem: Tachycardia, fever, pneumonia on chest x-ray --Type II diabetes mellitus Current Visit: Yes Status: Acute . Plan to address problem: Accu-Chek sliding scale coverage ADA diet Long-acting insulin as needed, check A1c Diabetic education, diabetic diet counseling Monitor closely and adjust management as needed -- Hypertension Current Visit: Yes Status: Acute Plan to address problem: Patient currently has optimal control blood pressure. Continue antihypertensives. --DVT prophylaxis Current Visit: Yes Status: Acute Plan to address problem: Currently on Lovenox. -- Full code status Current Visit: Yes Status: Acute --Morbid obesity (BMI 48.9) Current Visit: Yes Status: Acute Plan to address problem: This increases risk from COVID-19 pneumonia and COVID-19 itself. Patient educated on lifestyle changes upon discharge. Plan of care reviewed with the patient and her nurse Subjective Date of service: 07/12/20 Principal diagnosis: COVID-19 pneumonia Interval history: 39-year-old -[place] female with known history of diabetes mellitus, hypertension and COPD presenting to the emergency room today complaining of shortness of breath which has been ongoing for about 6 days. Shortness of breath is said to worsen with activity. Patient indicates that she had some low-grade fever with chills initially which has since subsided. She denies any chest pain, no headache or dizziness, no diaphoresis, no nausea vomiting, no abdominal pain, no diarrhea, no hematuria or dysuria. Patient denies any sick contacts and no recent travel. Denies any contact with anyone with COVID-19. Patient was tachycardic, tachypneic and slightly hypoxic on minimal exertion upon arrival in the emergency room. Work-up today reveals right lower lobe pneumonia on the chest x-ray. Patient is being admitted for pneumonia. We will also rule out for COVID-19. Patient is morbidly obese , severe COVID-19 sepsis ,critically ill In severe distress requiring high flow oxygen, very poor prognosis 07/04-patient was on CPAP last night. Now weaned down to 6 L of O2. We closely monitor patient's oxygen saturations with 6 L. Otherwise patient resting comfortably now in bed in prone position. -patient appears to be doing worse than yesterday. Still able to wean down to 6 L however patient became more hypoxic. Overall conditions of morbid obesity, sleep apnea, obesity hypoventilation syndrome. Place patient at extreme risk. Patient is aware of evaluation all questions and concerns answered. Patient will require oxygen upon discharge. History patient was complained of shortness of breath even prior to Covid. Will most likely require home O2 prior to developing Covid. 07/10/2020; patient morbidly obese remains on high flow oxygen, 30 L/100/95% Continuously on high flow oxygen, very poor prognosis, no beds available in ICU for close monitoring Strictly informed the patient not to remove the oxygen Patient is critically ill with continuous requirement of high flow oxygen Multiple comorbidities, very poor prognosis 07/11/2020 two 07/14/2020 On high flow oxygen No improvement in symptoms Objective - Constitutional Vitals: Vital Signs - 12hr 07/12/20 07/12/20 07/12/20 09:32 10:37 11:35 Temperature Pulse Rate Respiratory 16 Rate Blood Pressure O2 Sat by Pulse 92 90 Oximetry 07/12/20 07/12/20 07/12/20 11:46 15:12 17:58 Temperature 98.1 F 97.5 F L Pulse Rate 104 H 123 H Respiratory 22 24 Rate Blood Pressure 128/71 167/96 O2 Sat by Pulse 92 94 89 Oximetry General appearance: Present: mild distress, well-nourished - EENT Eyes: PERRL, EOM intact ENT: hearing intact, clear oral mucosa Ears: bilateral: normal - Neck Neck: supple, normal ROM - Respiratory Respiratory effort: normal Respiratory: bilateral: CTA - Breasts Breasts: normal - Cardiovascular Heart rate: 78 Rhythm: regular Heart Sounds: Present: S1 & S2. Absent: gallop, rub Extremities: pulses intact, No edema, normal color, Full ROM - Gastrointestinal General gastrointestinal: Present: soft, non-tender, non-distended, normal bowel sounds - Genitourinary Female genitourinary: normal - Integumentary Integumentary: clear, warm, dry - Musculoskeletal Musculoskeletal: 1, strength equal bilaterally - Neurologic Neurologic: moves all extremities - Psychiatric Psychiatric: memory intact, appropriate mood/affect, intact judgment & insight - Labs CBC & Chem 7: 07/02/20 22:37 07/12/20 05:00 Labs: Abnormal lab results 07/11/20 07/12/20 07/12/20 Range/Units 21:15 05:00 07:51 Sodium 132 L (137-145) mmol/L Chloride 94.0 L (98-107) mmol/L BUN 20 H (7-17) mg/dL Glucose 254 H (65-100) mg/dL POC Glucose 340 H 238 H (70-105) mg/dL 07/12/20 07/12/20 Range/Units 11:46 17:21 Sodium (137-145) mmol/L Chloride (98-107) mmol/L BUN (7-17) mg/dL Glucose (65-100) mg/dL POC Glucose 323 H 333 H (70-105) mg/dL
[2020-07-12] MEDS: SODIUM CHLORIDE 0.9% 50 ML IVPB IV SCH (21:35)
[2020-07-12] MEDS: ENOXAPARIN 40 MG/0.4 ML INJ SUB-Q SCH (21:35)
[2020-07-12] MEDS: INSULIN GLARGINE 100 UNITS/ML SUB-Q SCH (22:39)
[2020-07-13] MEDS: methylPREDNISolone Sod Succinate 125 MG/2 ML INJ IV SCH ×5 (00:56→23:07)
[2020-07-13] MEDS: INSULIN LISPRO 100 UNIT/ML VIAL 3 mL SUB-Q SCH ×4 (07:30→22:43)
[2020-07-13] MEDS: ALBUTEROL 8.5 GM MDI INHALATION IH SCH ×2 (08:00→20:56)
[2020-07-13] MEDS: TIOTROPIUM 18 MCG CAP INHALATION IH SCH (08:55)
[2020-07-13] MEDS: NYSTATIN POWDER 15 GM TP SCH ×2 (10:10→22:43)
--- NOTE | 2020-07-13 10:26 | Progress Note ---
Assessment and Plan - Patient Problems (1) Acute respiratory failure with hypoxia Current Visit: Yes Status: Acute (2) Acute respiratory failure due to COVID-19 Current Visit: Yes Status: Acute (3) Hypertension Current Visit: Yes Status: Acute (4) Hypoxemia Current Visit: Yes Status: Acute (5) Pneumonia due to COVID-19 virus Current Visit: Yes Status: Acute Subjective Principal diagnosis: COVID-19 pneumonia Interval history: awake feels better Objective Vital Signs - 12hr 07/13/20 07/13/20 07/13/20 04:23 04:24 04:38 Temperature 98.0 F Pulse Rate 84 87 Pulse Rate [ Anterior Bilateral Throughout] Pulse Rate [ Posterior Bilateral Throughout] Respiratory 30 H 28 H Rate Respiratory Rate [Anterior Bilateral Throughout] Respiratory Rate [Posterior Bilateral Throughout] Blood Pressure 156/96 O2 Sat by Pulse 95 95 97 Oximetry 07/13/20 07/13/20 08:52 08:53 Temperature Pulse Rate Pulse Rate [ 82 Anterior Bilateral Throughout] Pulse Rate [ 78 Posterior Bilateral Throughout] Respiratory Rate Respiratory 16 Rate [Anterior Bilateral Throughout] Respiratory 18 Rate [Posterior Bilateral Throughout] Blood Pressure O2 Sat by Pulse 97 Oximetry Constitutional: no acute distress Eyes: non-icteric ENT: oropharynx moist Neck: supple Effort: normal Ascultation: Bilateral: diminished breath sounds Cardiovascular: regular rate and rhythm Gastrointestinal: normoactive bowel sounds, soft, non-tender Integumentary: normal Neurologic: normal mental status CBC and BMP: 07/02/20 22:37 07/12/20 05:00 ABG, PT/INR, D-dimer: ABG ABG pH 7.456 pH Units (7.350-7.450) H 07/04/20 02:44 ABG pCO2 39.9 mm Hg 07/04/20 02:44 ABG pO2 60.7 mm Hg (80.0-90.0) L 07/04/20 02:44 ABG O2 Saturation 93.6 % (95.0-99.0) L 07/04/20 02:44 PT/INR, D-dimer D-Dimer 801.22 ng/mlDDU (0-234) H 07/08/20 15:03 Abnormal lab findings: Abnormal Labs 07/02/20 07/02/20 07/02/20 22:37 22:37 22:37 RBC 5.16 H MCH 26 L RDW 16.8 H Phillips % (Auto) 8.3 H D-Dimer ABG pH ABG pO2 ABG HCO3 ABG O2 Saturation ABG Base Excess Oxyhemoglobin Sodium 134 L Chloride 94.8 L Carbon Dioxide BUN Glucose 171 H POC Glucose Hemoglobin A1c Ferritin Lactate Dehydrogenase Total Creatine Kinase 384 H C-Reactive Protein Albumin 3.6 L Coronavirus (PCR) 07/03/20 07/03/20 07/03/20 03:12 03:14 03:14 RBC MCH RDW Phillips % (Auto) D-Dimer 626.31 H ABG pH ABG pO2 ABG HCO3 ABG O2 Saturation ABG Base Excess Oxyhemoglobin Sodium Chloride Carbon Dioxide BUN Glucose 162 H POC Glucose 166 H Hemoglobin A1c Ferritin Lactate Dehydrogenase 337 H Total Creatine Kinase C-Reactive Protein 9.30 H Albumin Coronavirus (PCR) 07/03/20 07/03/20 07/03/20 03:14 08:20 10:35 RBC MCH RDW Phillips % (Auto) D-Dimer ABG pH ABG pO2 ABG HCO3 ABG O2 Saturation ABG Base Excess Oxyhemoglobin Sodium Chloride Carbon Dioxide BUN Glucose POC Glucose 157 H Hemoglobin A1c Ferritin 1568.0 H Lactate Dehydrogenase Total Creatine Kinase C-Reactive Protein Albumin Coronavirus (PCR) Positive A 07/03/20 07/03/20 07/03/20 11:40 16:46 22:33 RBC MCH RDW Phillips % (Auto) D-Dimer ABG pH ABG pO2 ABG HCO3 ABG O2 Saturation ABG Base Excess Oxyhemoglobin Sodium Chloride Carbon Dioxide BUN Glucose POC Glucose 220 H 188 H 162 H Hemoglobin A1c Ferritin Lactate Dehydrogenase Total Creatine Kinase C-Reactive Protein Albumin Coronavirus (PCR) 07/04/20 07/04/20 07/04/20 02:44 11:39 13:55 RBC MCH RDW Phillips % (Auto) D-Dimer 397.35 H ABG pH 7.456 H ABG pO2 60.7 L ABG HCO3 27.5 H ABG O2 Saturation 93.6 L ABG Base Excess 3.4 H Oxyhemoglobin 91.6 L Sodium Chloride Carbon Dioxide BUN Glucose POC Glucose 208 H Hemoglobin A1c Ferritin Lactate Dehydrogenase Total Creatine Kinase C-Reactive Protein Albumin Coronavirus (PCR) 07/04/20 07/04/20 07/04/20 13:55 13:55 17:17 RBC MCH RDW Phillips % (Auto) D-Dimer ABG pH ABG pO2 ABG HCO3 ABG O2 Saturation ABG Base Excess Oxyhemoglobin Sodium Chloride Carbon Dioxide BUN Glucose 188 H POC Glucose 139 H Hemoglobin A1c Ferritin 1691.0 H Lactate Dehydrogenase 349 H Total Creatine Kinase C-Reactive Protein 4.80 H Albumin Coronavirus (PCR) 07/04/20 07/05/20 07/05/20 22:01 12:28 16:45 RBC MCH RDW Phillips % (Auto) D-Dimer ABG pH ABG pO2 ABG HCO3 ABG O2 Saturation ABG Base Excess Oxyhemoglobin Sodium Chloride Carbon Dioxide BUN Glucose POC Glucose 143 H 113 H 186 H Hemoglobin A1c Ferritin Lactate Dehydrogenase Total Creatine Kinase C-Reactive Protein Albumin Coronavirus (PCR) 07/05/20 07/06/20 07/06/20 21:53 11:49 18:52 RBC MCH RDW Phillips % (Auto) D-Dimer ABG pH ABG pO2 ABG HCO3 ABG O2 Saturation ABG Base Excess Oxyhemoglobin Sodium Chloride Carbon Dioxide BUN Glucose POC Glucose 167 H 106 H 235 H Hemoglobin A1c Ferritin Lactate Dehydrogenase Total Creatine Kinase C-Reactive Protein Albumin Coronavirus (PCR) 07/06/20 07/07/20 07/07/20 22:24 05:19 11:09 RBC MCH RDW Phillips % (Auto) D-Dimer ABG pH ABG pO2 ABG HCO3 ABG O2 Saturation ABG Base Excess Oxyhemoglobin Sodium Chloride Carbon Dioxide 31 H BUN Glucose 122 H POC Glucose 201 H 132 H Hemoglobin A1c Ferritin Lactate Dehydrogenase Total Creatine Kinase C-Reactive Protein Albumin 3.2 L Coronavirus (PCR) 07/07/20 07/07/20 07/08/20 16:03 21:00 05:16 RBC MCH RDW Phillips % (Auto) D-Dimer ABG pH ABG pO2 ABG HCO3 ABG O2 Saturation ABG Base Excess Oxyhemoglobin Sodium Chloride Carbon Dioxide 31 H BUN Glucose 112 H POC Glucose 162 H 238 H Hemoglobin A1c Ferritin Lactate Dehydrogenase Total Creatine Kinase C-Reactive Protein Albumin 3.2 L Coronavirus (PCR) 07/08/20 07/08/20 07/08/20 11:51 15:03 15:03 RBC MCH RDW Phillips % (Auto) D-Dimer 801.22 H ABG pH ABG pO2 ABG HCO3 ABG O2 Saturation ABG Base Excess Oxyhemoglobin Sodium Chloride Carbon Dioxide BUN Glucose POC Glucose 121 H Hemoglobin A1c Ferritin 1359.0 H Lactate Dehydrogenase Total Creatine Kinase C-Reactive Protein Albumin Coronavirus (PCR) 07/08/20 07/08/20 07/08/20 15:03 16:55 16:59 RBC MCH RDW Phillips % (Auto) D-Dimer ABG pH ABG pO2 ABG HCO3 ABG O2 Saturation ABG Base Excess Oxyhemoglobin Sodium Chloride Carbon Dioxide BUN Glucose POC Glucose 241 H Hemoglobin A1c 7.2 H Ferritin Lactate Dehydrogenase 384 H Total Creatine Kinase C-Reactive Protein 5.10 H Albumin Coronavirus (PCR) 07/08/20 07/09/20 07/09/20 22:20 11:04 16:41 RBC MCH RDW Phillips % (Auto) D-Dimer ABG pH ABG pO2 ABG HCO3 ABG O2 Saturation ABG Base Excess Oxyhemoglobin Sodium Chloride Carbon Dioxide BUN Glucose POC Glucose 169 H 140 H 281 H Hemoglobin A1c Ferritin Lactate Dehydrogenase Total Creatine Kinase C-Reactive Protein Albumin Coronavirus (PCR) 07/09/20 07/10/20 07/10/20 22:17 08:14 11:34 RBC MCH RDW Phillips % (Auto) D-Dimer ABG pH ABG pO2 ABG HCO3 ABG O2 Saturation ABG Base Excess Oxyhemoglobin Sodium Chloride Carbon Dioxide BUN Glucose POC Glucose 291 H 153 H 310 H Hemoglobin A1c Ferritin Lactate Dehydrogenase Total Creatine Kinase C-Reactive Protein Albumin Coronavirus (PCR) 07/10/20 07/10/20 07/11/20 17:22 21:44 07:42 RBC MCH RDW Phillips % (Auto) D-Dimer ABG pH ABG pO2 ABG HCO3 ABG O2 Saturation ABG Base Excess Oxyhemoglobin Sodium Chloride Carbon Dioxide BUN Glucose POC Glucose 191 H 283 H 187 H Hemoglobin A1c Ferritin Lactate Dehydrogenase Total Creatine Kinase C-Reactive Protein Albumin Coronavirus (PCR) 07/11/20 07/11/20 07/11/20 11:48 17:38 21:15 RBC MCH RDW Phillips % (Auto) D-Dimer ABG pH ABG pO2 ABG HCO3 ABG O2 Saturation ABG Base Excess Oxyhemoglobin Sodium Chloride Carbon Dioxide BUN Glucose POC Glucose 323 H 341 H 340 H Hemoglobin A1c Ferritin Lactate Dehydrogenase Total Creatine Kinase C-Reactive Protein Albumin Coronavirus (PCR) 07/12/20 07/12/20 07/12/20 05:00 07:51 11:46 RBC MCH RDW Phillips % (Auto) D-Dimer ABG pH ABG pO2 ABG HCO3 ABG O2 Saturation ABG Base Excess Oxyhemoglobin Sodium 132 L Chloride 94.0 L Carbon Dioxide BUN 20 H Glucose 254 H POC Glucose 238 H 323 H Hemoglobin A1c Ferritin Lactate Dehydrogenase Total Creatine Kinase C-Reactive Protein Albumin Coronavirus (PCR) 07/12/20 07/12/20 07/13/20 17:21 21:26 08:31 RBC MCH RDW Phillips % (Auto) D-Dimer ABG pH ABG pO2 ABG HCO3 ABG O2 Saturation ABG Base Excess Oxyhemoglobin Sodium Chloride Carbon Dioxide BUN Glucose POC Glucose 333 H 399 H 290 H Hemoglobin A1c Ferritin Lactate Dehydrogenase Total Creatine Kinase C-Reactive Protein Albumin Coronavirus (PCR)
--- NOTE | 2020-07-13 17:51 | Progress Note ---
Assessment and Plan Assessment and Plan Assessment and plan: History of obstructive sleep apnea/on CPAP at night, noncompliant Covid positive test; 07/03/2020 --Severe hypoxemia; secondary to pneumonia due to Covid Oxygen titrate O2 sats more than 90%, on high flow oxygen 30L /100 %/93 O2sat Nebulizers, prone position, pulmonary consulted -- Pneumonia due to COVID-19 virus Current Visit: Yes Status: Acute Plan to address problem: Contact and droplet isolation Continue dexamethasone for total 10 days Continue remdesivir complete 4 doses Prone position as tolerated Trend inflammatory markers home oxygen evaluation Discharge planning when medically stable Patient is severely hypoxemic requiring high flow oxygen ID pulmonary consulted Follow recommendations --Severe sepsis secondary to Covid pneumonia Current Visit: Yes Status: Acute . Plan to address problem: Tachycardia, fever, pneumonia on chest x-ray --Type II diabetes mellitus Current Visit: Yes Status: Acute . Plan to address problem: Accu-Chek sliding scale coverage ADA diet Long-acting insulin as needed, check A1c Diabetic education, diabetic diet counseling Monitor closely and adjust management as needed -- Hypertension Current Visit: Yes Status: Acute Plan to address problem: Patient currently has optimal control blood pressure. Continue antihypertensives. --DVT prophylaxis Current Visit: Yes Status: Acute Plan to address problem: Currently on Lovenox. -- Full code status Current Visit: Yes Status: Acute --Morbid obesity (BMI 48.9) Current Visit: Yes Status: Acute Plan to address problem: This increases risk from COVID-19 pneumonia and COVID-19 itself. Patient educated on lifestyle changes upon discharge. Plan of care reviewed with the patient and her nurse Subjective Date of service: 07/13/20 Principal diagnosis: COVID-19 pneumonia Interval history: 39-year-old -[place] female with known history of diabetes mellitus, hypertension and COPD presenting to the emergency room today complaining of shortness of breath which has been ongoing for about 6 days. Shortness of breath is said to worsen with activity. Patient indicates that she had some low-grade fever with chills initially which has since subsided. She denies any chest pain, no headache or dizziness, no diaphoresis, no nausea vomiting, no abdominal pain, no diarrhea, no hematuria or dysuria. Patient denies any sick contacts and no recent travel. Denies any contact with anyone with COVID-19. Patient was tachycardic, tachypneic and slightly hypoxic on minimal exertion upon arrival in the emergency room. Work-up today reveals right lower lobe pneumonia on the chest x-ray. Patient is being admitted for pneumonia. We will also rule out for COVID-19. Patient is morbidly obese , severe COVID-19 sepsis ,critically ill In severe distress requiring high flow oxygen, very poor prognosis 07/04-patient was on CPAP last night. Now weaned down to 6 L of O2. We closely monitor patient's oxygen saturations with 6 L. Otherwise patient resting comfortably now in bed in prone position. -patient appears to be doing worse than yesterday. Still able to wean down to 6 L however patient became more hypoxic. Overall conditions of morbid obesity, sleep apnea, obesity hypoventilation syndrome. Place patient at extreme risk. Patient is aware of evaluation all questions and concerns answered. Patient will require oxygen upon discharge. History patient was complained of shortness of breath even prior to Covid. Will most likely require home O2 prior to developing Covid. 07/10/2020; patient morbidly obese remains on high flow oxygen, 30 L/100/95% Continuously on high flow oxygen, very poor prognosis, no beds available in ICU for close monitoring Strictly informed the patient not to remove the oxygen Patient is critically ill with continuous requirement of high flow oxygen Multiple comorbidities, very poor prognosis From 07/11/2020 to 04/04/20102020 Patient on high flow oxygen On 30 L / 100% Objective - Constitutional Vitals: Vital Signs - 12hr 07/13/20 07/13/20 07/13/20 08:52 08:53 11:53 Temperature 98.5 F Pulse Rate 87 Pulse Rate [ 82 Anterior Bilateral Throughout] Pulse Rate [ 78 Posterior Bilateral Throughout] Respiratory 26 H Rate Respiratory 16 Rate [Anterior Bilateral Throughout] Respiratory 18 Rate [Posterior Bilateral Throughout] Blood Pressure 111/56 O2 Sat by Pulse 97 96 Oximetry 07/13/20 14:28 Temperature Pulse Rate Pulse Rate [ Anterior Bilateral Throughout] Pulse Rate [ Posterior Bilateral Throughout] Respiratory Rate Respiratory Rate [Anterior Bilateral Throughout] Respiratory Rate [Posterior Bilateral Throughout] Blood Pressure O2 Sat by Pulse 96 Oximetry General appearance: Present: no acute distress, well-nourished - EENT Eyes: PERRL, EOM intact ENT: hearing intact, clear oral mucosa Ears: bilateral: normal - Neck Neck: supple, normal ROM - Respiratory Respiratory effort: normal Respiratory: bilateral: CTA - Breasts Breasts: normal - Cardiovascular Rhythm: regular Heart Sounds: Present: S1 & S2. Absent: gallop, rub Extremities: pulses intact, No edema, normal color, Full ROM - Gastrointestinal General gastrointestinal: Present: soft, non-tender, non-distended, normal bowel sounds - Genitourinary Female genitourinary: normal - Integumentary Integumentary: clear, warm, dry - Musculoskeletal Musculoskeletal: 1, strength equal bilaterally - Neurologic Neurologic: moves all extremities - Psychiatric Psychiatric: memory intact, appropriate mood/affect, intact judgment & insight - Labs CBC & Chem 7: 07/02/20 22:37 07/12/20 05:00 Labs: Abnormal lab results 07/12/20 07/13/20 07/13/20 Range/Units 21:26 08:31 11:51 POC Glucose 399 H 290 H 357 H (70-105) mg/dL 07/13/20 Range/Units 17:30 POC Glucose 254 H (70-105) mg/dL
[2020-07-13] MEDS: INSULIN GLARGINE 100 UNITS/ML SUB-Q SCH (22:43)
[2020-07-13] MEDS: ENOXAPARIN 40 MG/0.4 ML INJ SUB-Q SCH (22:44)
[2020-07-13] MEDS: SODIUM CHLORIDE 0.9% 50 ML IVPB IV SCH (22:49)
[2020-07-14] MEDS: methylPREDNISolone Sod Succinate 125 MG/2 ML INJ IV SCH ×3 (05:24→18:06)
[2020-07-14] MEDS: INSULIN LISPRO 100 UNIT/ML VIAL 3 mL SUB-Q SCH ×4 (07:30→22:12)
[2020-07-14] MEDS: ALBUTEROL 8.5 GM MDI INHALATION IH SCH ×2 (08:05→21:11)
[2020-07-14] MEDS: TIOTROPIUM 18 MCG CAP INHALATION IH SCH (08:06)
--- NOTE | 2020-07-14 12:08 | Progress Note ---
Assessment and Plan - Patient Problems (1) Acute respiratory failure with hypoxia Current Visit: Yes Status: Acute (2) Acute respiratory failure due to COVID-19 Current Visit: Yes Status: Acute (3) Hypertension Current Visit: Yes Status: Acute (4) Hypoxemia Current Visit: Yes Status: Acute (5) Pneumonia due to COVID-19 virus Current Visit: Yes Status: Acute Subjective Principal diagnosis: COVID-19 pneumonia Interval history: awake possible vaginal bleeding Objective Vital Signs - 12hr 07/14/20 07/14/20 04:06 04:45 Temperature 98.1 F Pulse Rate 78 Respiratory 21 30 H Rate Blood Pressure 153/94 O2 Sat by Pulse 96 Oximetry Constitutional: no acute distress Eyes: non-icteric ENT: oropharynx moist Neck: supple Effort: normal Ascultation: Bilateral: diminished breath sounds Cardiovascular: regular rate and rhythm Gastrointestinal: normoactive bowel sounds, soft, non-tender Integumentary: normal Neurologic: normal mental status CBC and BMP: 07/02/20 22:37 07/12/20 05:00 ABG, PT/INR, D-dimer: ABG ABG pH 7.456 pH Units (7.350-7.450) H 07/04/20 02:44 ABG pCO2 39.9 mm Hg 07/04/20 02:44 ABG pO2 60.7 mm Hg (80.0-90.0) L 07/04/20 02:44 ABG O2 Saturation 93.6 % (95.0-99.0) L 07/04/20 02:44 PT/INR, D-dimer D-Dimer 801.22 ng/mlDDU (0-234) H 07/08/20 15:03 Abnormal lab findings: Abnormal Labs 07/02/20 07/02/20 07/02/20 22:37 22:37 22:37 RBC 5.16 H MCH 26 L RDW 16.8 H [place] % (Auto) 8.3 H D-Dimer ABG pH ABG pO2 ABG HCO3 ABG O2 Saturation ABG Base Excess Oxyhemoglobin Sodium 134 L Chloride 94.8 L Carbon Dioxide BUN Glucose 171 H POC Glucose Hemoglobin A1c Ferritin Lactate Dehydrogenase Total Creatine Kinase 384 H C-Reactive Protein Albumin 3.6 L Coronavirus (PCR) 07/03/20 07/03/20 07/03/20 03:12 03:14 03:14 RBC MCH RDW [place] % (Auto) D-Dimer 626.31 H ABG pH ABG pO2 ABG HCO3 ABG O2 Saturation ABG Base Excess Oxyhemoglobin Sodium Chloride Carbon Dioxide BUN Glucose 162 H POC Glucose 166 H Hemoglobin A1c Ferritin Lactate Dehydrogenase 337 H Total Creatine Kinase C-Reactive Protein 9.30 H Albumin Coronavirus (PCR) 07/03/20 07/03/20 07/03/20 03:14 08:20 10:35 RBC MCH RDW [place] % (Auto) D-Dimer ABG pH ABG pO2 ABG HCO3 ABG O2 Saturation ABG Base Excess Oxyhemoglobin Sodium Chloride Carbon Dioxide BUN Glucose POC Glucose 157 H Hemoglobin A1c Ferritin 1568.0 H Lactate Dehydrogenase Total Creatine Kinase C-Reactive Protein Albumin Coronavirus (PCR) Positive A 07/03/20 07/03/20 07/03/20 11:40 16:46 22:33 RBC MCH RDW [place] % (Auto) D-Dimer ABG pH ABG pO2 ABG HCO3 ABG O2 Saturation ABG Base Excess Oxyhemoglobin Sodium Chloride Carbon Dioxide BUN Glucose POC Glucose 220 H 188 H 162 H Hemoglobin A1c Ferritin Lactate Dehydrogenase Total Creatine Kinase C-Reactive Protein Albumin Coronavirus (PCR) 07/04/20 07/04/20 07/04/20 02:44 11:39 13:55 RBC MCH RDW [place] % (Auto) D-Dimer 397.35 H ABG pH 7.456 H ABG pO2 60.7 L ABG HCO3 27.5 H ABG O2 Saturation 93.6 L ABG Base Excess 3.4 H Oxyhemoglobin 91.6 L Sodium Chloride Carbon Dioxide BUN Glucose POC Glucose 208 H Hemoglobin A1c Ferritin Lactate Dehydrogenase Total Creatine Kinase C-Reactive Protein Albumin Coronavirus (PCR) 07/04/20 07/04/20 07/04/20 13:55 13:55 17:17 RBC MCH RDW [place] % (Auto) D-Dimer ABG pH ABG pO2 ABG HCO3 ABG O2 Saturation ABG Base Excess Oxyhemoglobin Sodium Chloride Carbon Dioxide BUN Glucose 188 H POC Glucose 139 H Hemoglobin A1c Ferritin 1691.0 H Lactate Dehydrogenase 349 H Total Creatine Kinase C-Reactive Protein 4.80 H Albumin Coronavirus (PCR) 07/04/20 07/05/20 07/05/20 22:01 12:28 16:45 RBC MCH RDW [place] % (Auto) D-Dimer ABG pH ABG pO2 ABG HCO3 ABG O2 Saturation ABG Base Excess Oxyhemoglobin Sodium Chloride Carbon Dioxide BUN Glucose POC Glucose 143 H 113 H 186 H Hemoglobin A1c Ferritin Lactate Dehydrogenase Total Creatine Kinase C-Reactive Protein Albumin Coronavirus (PCR) 07/05/20 07/06/20 07/06/20 21:53 11:49 18:52 RBC MCH RDW [place] % (Auto) D-Dimer ABG pH ABG pO2 ABG HCO3 ABG O2 Saturation ABG Base Excess Oxyhemoglobin Sodium Chloride Carbon Dioxide BUN Glucose POC Glucose 167 H 106 H 235 H Hemoglobin A1c Ferritin Lactate Dehydrogenase Total Creatine Kinase C-Reactive Protein Albumin Coronavirus (PCR) 07/06/20 07/07/20 07/07/20 22:24 05:19 11:09 RBC MCH RDW [place] % (Auto) D-Dimer ABG pH ABG pO2 ABG HCO3 ABG O2 Saturation ABG Base Excess Oxyhemoglobin Sodium Chloride Carbon Dioxide 31 H BUN Glucose 122 H POC Glucose 201 H 132 H Hemoglobin A1c Ferritin Lactate Dehydrogenase Total Creatine Kinase C-Reactive Protein Albumin 3.2 L Coronavirus (PCR) 07/07/20 07/07/20 07/08/20 16:03 21:00 05:16 RBC MCH RDW [place] % (Auto) D-Dimer ABG pH ABG pO2 ABG HCO3 ABG O2 Saturation ABG Base Excess Oxyhemoglobin Sodium Chloride Carbon Dioxide 31 H BUN Glucose 112 H POC Glucose 162 H 238 H Hemoglobin A1c Ferritin Lactate Dehydrogenase Total Creatine Kinase C-Reactive Protein Albumin 3.2 L Coronavirus (PCR) 07/08/20 07/08/20 07/08/20 11:51 15:03 15:03 RBC MCH RDW [place] % (Auto) D-Dimer 801.22 H ABG pH ABG pO2 ABG HCO3 ABG O2 Saturation ABG Base Excess Oxyhemoglobin Sodium Chloride Carbon Dioxide BUN Glucose POC Glucose 121 H Hemoglobin A1c Ferritin 1359.0 H Lactate Dehydrogenase Total Creatine Kinase C-Reactive Protein Albumin Coronavirus (PCR) 07/08/20 07/08/20 07/08/20 15:03 16:55 16:59 RBC MCH RDW [place] % (Auto) D-Dimer ABG pH ABG pO2 ABG HCO3 ABG O2 Saturation ABG Base Excess Oxyhemoglobin Sodium Chloride Carbon Dioxide BUN Glucose POC Glucose 241 H Hemoglobin A1c 7.2 H Ferritin Lactate Dehydrogenase 384 H Total Creatine Kinase C-Reactive Protein 5.10 H Albumin Coronavirus (PCR) 07/08/20 07/09/20 07/09/20 22:20 11:04 16:41 RBC MCH RDW [place] % (Auto) D-Dimer ABG pH ABG pO2 ABG HCO3 ABG O2 Saturation ABG Base Excess Oxyhemoglobin Sodium Chloride Carbon Dioxide BUN Glucose POC Glucose 169 H 140 H 281 H Hemoglobin A1c Ferritin Lactate Dehydrogenase Total Creatine Kinase C-Reactive Protein Albumin Coronavirus (PCR) 07/09/20 07/10/20 07/10/20 22:17 08:14 11:34 RBC MCH RDW [place] % (Auto) D-Dimer ABG pH ABG pO2 ABG HCO3 ABG O2 Saturation ABG Base Excess Oxyhemoglobin Sodium Chloride Carbon Dioxide BUN Glucose POC Glucose 291 H 153 H 310 H Hemoglobin A1c Ferritin Lactate Dehydrogenase Total Creatine Kinase C-Reactive Protein Albumin Coronavirus (PCR) 07/10/20 07/10/20 07/11/20 17:22 21:44 07:42 RBC MCH RDW [place] % (Auto) D-Dimer ABG pH ABG pO2 ABG HCO3 ABG O2 Saturation ABG Base Excess Oxyhemoglobin Sodium Chloride Carbon Dioxide BUN Glucose POC Glucose 191 H 283 H 187 H Hemoglobin A1c Ferritin Lactate Dehydrogenase Total Creatine Kinase C-Reactive Protein Albumin Coronavirus (PCR) 07/11/20 07/11/20 07/11/20 11:48 17:38 21:15 RBC MCH RDW [place] % (Auto) D-Dimer ABG pH ABG pO2 ABG HCO3 ABG O2 Saturation ABG Base Excess Oxyhemoglobin Sodium Chloride Carbon Dioxide BUN Glucose POC Glucose 323 H 341 H 340 H Hemoglobin A1c Ferritin Lactate Dehydrogenase Total Creatine Kinase C-Reactive Protein Albumin Coronavirus (PCR) 07/12/20 07/12/20 07/12/20 05:00 07:51 11:46 RBC MCH RDW [place] % (Auto) D-Dimer ABG pH ABG pO2 ABG HCO3 ABG O2 Saturation ABG Base Excess Oxyhemoglobin Sodium 132 L Chloride 94.0 L Carbon Dioxide BUN 20 H Glucose 254 H POC Glucose 238 H 323 H Hemoglobin A1c Ferritin Lactate Dehydrogenase Total Creatine Kinase C-Reactive Protein Albumin Coronavirus (PCR) 07/12/20 07/12/20 07/13/20 17:21 21:26 08:31 RBC MCH RDW [place] % (Auto) D-Dimer ABG pH ABG pO2 ABG HCO3 ABG O2 Saturation ABG Base Excess Oxyhemoglobin Sodium Chloride Carbon Dioxide BUN Glucose POC Glucose 333 H 399 H 290 H Hemoglobin A1c Ferritin Lactate Dehydrogenase Total Creatine Kinase C-Reactive Protein Albumin Coronavirus (PCR) 07/13/20 07/13/20 07/13/20 11:51 17:30 21:13 RBC MCH RDW [place] % (Auto) D-Dimer ABG pH ABG pO2 ABG HCO3 ABG O2 Saturation ABG Base Excess Oxyhemoglobin Sodium Chloride Carbon Dioxide BUN Glucose POC Glucose 357 H 254 H 301 H Hemoglobin A1c Ferritin Lactate Dehydrogenase Total Creatine Kinase C-Reactive Protein Albumin Coronavirus (PCR) 07/14/20 07/14/20 08:44 11:53 RBC MCH RDW [place] % (Auto) D-Dimer ABG pH ABG pO2 ABG HCO3 ABG O2 Saturation ABG Base Excess Oxyhemoglobin Sodium Chloride Carbon Dioxide BUN Glucose POC Glucose 266 H 321 H Hemoglobin A1c Ferritin Lactate Dehydrogenase Total Creatine Kinase C-Reactive Protein Albumin Coronavirus (PCR)
--- NOTE | 2020-07-14 14:17 | Progress Note ---
Assessment and Plan Assessment and Plan Assessment and plan: History of obstructive sleep apnea/on CPAP at night, noncompliant Covid positive test; 07/03/2020 --Severe hypoxemia; secondary to pneumonia due to Covid Oxygen titrate O2 sats more than 90%, on high flow oxygen 30L /100 %/93 O2sat Nebulizers, prone position, pulmonary consulted -- Pneumonia due to COVID-19 virus Current Visit: Yes Status: Acute Plan to address problem: Contact and droplet isolation Continue dexamethasone for total 10 days Continue remdesivir complete 4 doses Prone position as tolerated Trend inflammatory markers home oxygen evaluation Discharge planning when medically stable Patient is severely hypoxemic requiring high flow oxygen ID pulmonary consulted Follow recommendations --Severe sepsis secondary to Covid pneumonia Current Visit: Yes Status: Acute . Plan to address problem: Tachycardia, fever, pneumonia on chest x-ray --Type II diabetes mellitus Current Visit: Yes Status: Acute . Plan to address problem: Accu-Chek sliding scale coverage ADA diet Long-acting insulin as needed, check A1c Diabetic education, diabetic diet counseling Monitor closely and adjust management as needed -- Hypertension Current Visit: Yes Status: Acute Plan to address problem: Patient currently has optimal control blood pressure. Continue antihypertensives. --DVT prophylaxis Current Visit: Yes Status: Acute Plan to address problem: Currently on Lovenox. -- Full code status Current Visit: Yes Status: Acute --Morbid obesity (BMI 48.9) Current Visit: Yes Status: Acute Plan to address problem: This increases risk from COVID-19 pneumonia and COVID-19 itself. Patient educated on lifestyle changes upon discharge. Plan of care reviewed with the patient and her nurse Subjective Date of service: 07/14/20 Principal diagnosis: COVID-19 pneumonia Interval history: 39-year-old -[place] female with known history of diabetes mellitus, hypertension and COPD presenting to the emergency room today complaining of shortness of breath which has been ongoing for about 6 days. Shortness of breath is said to worsen with activity. Patient indicates that she had some low-grade fever with chills initially which has since subsided. She denies any chest pain, no headache or dizziness, no diaphoresis, no nausea vomiting, no abdominal pain, no diarrhea, no hematuria or dysuria. Patient denies any sick contacts and no recent travel. Denies any contact with anyone with COVID-19. Patient was tachycardic, tachypneic and slightly hypoxic on minimal exertion upon arrival in the emergency room. Work-up today reveals right lower lobe pneumonia on the chest x-ray. Patient is being admitted for pneumonia. We will also rule out for COVID-19. Patient is morbidly obese , severe COVID-19 sepsis ,critically ill In severe distress requiring high flow oxygen, very poor prognosis 07/04-patient was on CPAP last night. Now weaned down to 6 L of O2. We closely monitor patient's oxygen saturations with 6 L. Otherwise patient resting comfortably now in bed in prone position. -patient appears to be doing worse than yesterday. Still able to wean down to 6 L however patient became more hypoxic. Overall conditions of morbid obesity, sleep apnea, obesity hypoventilation syndrome. Place patient at extreme risk. Patient is aware of evaluation all questions and concerns answered. Patient will require oxygen upon discharge. History patient was complained of shortness of breath even prior to Covid. Will most likely require home O2 prior to developing Covid. 07/10/2020; patient morbidly obese remains on high flow oxygen, 30 L/100/95% Continuously on high flow oxygen, very poor prognosis, no beds available in ICU for close monitoring Strictly informed the patient not to remove the oxygen Patient is critically ill with continuous requirement of high flow oxygen Multiple comorbidities, very poor prognosis 07/11/2020 two 07/14/2020 On high flow oxygen No improvement in symptoms Objective - Constitutional Vitals: Vital Signs - 12hr 07/14/20 07/14/20 07/14/20 04:06 04:45 08:00 Temperature 98.1 F Pulse Rate 78 82 Pulse Rate [ Anterior Bilateral Throughout] Respiratory 21 30 H 25 H Rate Respiratory Rate [Anterior Bilateral Throughout] Blood Pressure 153/94 O2 Sat by Pulse 96 97 Oximetry 07/14/20 07/14/20 07/14/20 08:05 08:10 11:55 Temperature 97.9 F Pulse Rate 104 H Pulse Rate [ 88 92 H Anterior Bilateral Throughout] Respiratory 24 Rate Respiratory 24 25 H Rate [Anterior Bilateral Throughout] Blood Pressure 111/65 O2 Sat by Pulse 94 Oximetry 07/14/20 12:10 Temperature Pulse Rate Pulse Rate [ Anterior Bilateral Throughout] Respiratory Rate Respiratory Rate [Anterior Bilateral Throughout] Blood Pressure O2 Sat by Pulse 95 Oximetry General appearance: Present: no acute distress, well-nourished - EENT Eyes: PERRL, EOM intact ENT: hearing intact, clear oral mucosa Ears: bilateral: normal - Neck Neck: supple, normal ROM - Respiratory Respiratory effort: normal Respiratory: bilateral: CTA - Breasts Breasts: normal - Cardiovascular Heart rate: 78 Rhythm: regular Heart Sounds: Present: S1 & S2. Absent: gallop, rub Extremities: pulses intact, No edema, normal color, Full ROM - Gastrointestinal General gastrointestinal: Present: soft, non-tender, non-distended, normal bowel sounds - Genitourinary Female genitourinary: normal - Integumentary Integumentary: clear, warm, dry - Musculoskeletal Musculoskeletal: 1, strength equal bilaterally - Neurologic Neurologic: moves all extremities - Psychiatric Psychiatric: memory intact, appropriate mood/affect, intact judgment & insight - Labs CBC & Chem 7: 07/02/20 22:37 07/12/20 05:00 Labs: Abnormal lab results 07/13/20 07/13/20 07/14/20 Range/Units 17:30 21:13 08:44 POC Glucose 254 H 301 H 266 H (70-105) mg/dL 07/14/20 Range/Units 11:53 POC Glucose 321 H (70-105) mg/dL
[2020-07-14] MEDS: NYSTATIN POWDER 15 GM TP SCH ×2 (17:12→22:14)
[2020-07-14] MEDS: INSULIN GLARGINE 100 UNITS/ML SUB-Q SCH (22:11)
[2020-07-14] MEDS: ENOXAPARIN 40 MG/0.4 ML INJ SUB-Q SCH (22:12)
[2020-07-15] MEDS: methylPREDNISolone Sod Succinate 125 MG/2 ML INJ IV SCH ×3 (00:46→12:05)
[2020-07-15 06:52] LABS: Basophils % (Auto) 0.4 % (0.0-1.8); Hemoglobin 13.3 gm/dl (10.1-14.3); Lymphocytes # (Auto) 1.1 K/mm3 (1.2-5.4); Lymphocytes % (Auto) 11.3 % (13.4-35.0); Mean Corpuscular HGB Conc 32 % (30-34); Mean Corpuscular Volume 80 fl (79-97); Monocytes # (Auto) 0.5 K/mm3 (0.0-0.8); Monocytes % (Auto) 5.5 % (0.0-7.3); Platelet Count 388 K/mm3 (140-440); Red Blood Count 5.25 M/mm3 (3.65-5.03); Red Cell Distribution Width 16.5 % (13.2-15.2)
[2020-07-15 07:23] LABS: Alanine Aminotransferase 21 units/L (7-56); Albumin 3.2 g/dL (3.9-5); Blood Urea Nitrogen 22 mg/dL (7-17); Calcium 9.1 mg/dL (8.4-10.2); Hemolysis Index 10
[2020-07-15 07:26] LABS: BUN/Creatinine Ratio 31
[2020-07-15] MEDS: INSULIN LISPRO 100 UNIT/ML VIAL 3 mL SUB-Q SCH ×4 (08:20→21:59)
[2020-07-15] MEDS: ALBUTEROL 8.5 GM MDI INHALATION IH SCH ×2 (08:47→23:27)
[2020-07-15] MEDS: TIOTROPIUM 18 MCG CAP INHALATION IH SCH (08:47)
[2020-07-15] MEDS: NYSTATIN POWDER 15 GM TP SCH (09:56)
--- NOTE | 2020-07-15 12:03 | Progress Note ---
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 1. Will change steroids to 40q8 2. continue proning 3. Suggest trial of diuresis with IV lasix 4. Continue to wean FiO2 for sats >88% Subjective Date of service: 07/15/20 Principal diagnosis: COVID-19 pneumonia Interval history: No acute events. STable on 4 liters. Objective Vital Signs - 12hr 07/15/20 07/15/20 07/15/20 04:30 08:47 08:48 Temperature 97.8 F Pulse Rate 85 Pulse Rate [ 92 H Anterior Bilateral Throughout] Pulse Rate [ 90 Posterior Bilateral Throughout] Respiratory 18 Rate Respiratory 18 Rate [Anterior Bilateral Throughout] Respiratory 18 Rate [Posterior Bilateral Throughout] Blood Pressure 133/79 O2 Sat by Pulse 97 94 Oximetry Constitutional: no acute distress Eyes: non-icteric ENT: oropharynx moist Neck: supple Effort: normal Ascultation: Bilateral: diminished breath sounds Cardiovascular: regular rate and rhythm Gastrointestinal: normoactive bowel sounds, soft, non-tender Integumentary: normal Neurologic: normal mental status CBC and BMP: 07/15/20 05:52 07/15/20 05:52 ABG, PT/INR, D-dimer: ABG ABG pH 7.456 pH Units (7.350-7.450) H 07/04/20 02:44 ABG pCO2 39.9 mm Hg 07/04/20 02:44 ABG pO2 60.7 mm Hg (80.0-90.0) L 07/04/20 02:44 ABG O2 Saturation 93.6 % (95.0-99.0) L 07/04/20 02:44 PT/INR, D-dimer D-Dimer 801.22 ng/mlDDU (0-234) H 07/08/20 15:03 Abnormal lab findings: Abnormal Labs 07/02/20 07/02/20 07/02/20 22:37 22:37 22:37 RBC 5.16 H MCH 26 L RDW 16.8 H Lymph % (Auto) [place] % (Auto) 8.3 H Lymph # (Auto) Seg Neutrophils % Seg Neutrophils # D-Dimer ABG pH ABG pO2 ABG HCO3 ABG O2 Saturation ABG Base Excess Oxyhemoglobin Sodium 134 L Potassium Chloride 94.8 L Carbon Dioxide BUN Glucose 171 H POC Glucose Hemoglobin A1c Ferritin Lactate Dehydrogenase Total Creatine Kinase 384 H C-Reactive Protein Total Protein Albumin 3.6 L Coronavirus (PCR) 07/03/20 07/03/20 07/03/20 03:12 03:14 03:14 RBC MCH RDW Lymph % (Auto) [place] % (Auto) Lymph # (Auto) Seg Neutrophils % Seg Neutrophils # D-Dimer 626.31 H ABG pH ABG pO2 ABG HCO3 ABG O2 Saturation ABG Base Excess Oxyhemoglobin Sodium Potassium Chloride Carbon Dioxide BUN Glucose 162 H POC Glucose 166 H Hemoglobin A1c Ferritin Lactate Dehydrogenase 337 H Total Creatine Kinase C-Reactive Protein 9.30 H Total Protein Albumin Coronavirus (PCR) 07/03/20 07/03/20 07/03/20 03:14 08:20 10:35 RBC MCH RDW Lymph % (Auto) [place] % (Auto) Lymph # (Auto) Seg Neutrophils % Seg Neutrophils # D-Dimer ABG pH ABG pO2 ABG HCO3 ABG O2 Saturation ABG Base Excess Oxyhemoglobin Sodium Potassium Chloride Carbon Dioxide BUN Glucose POC Glucose 157 H Hemoglobin A1c Ferritin 1568.0 H Lactate Dehydrogenase Total Creatine Kinase C-Reactive Protein Total Protein Albumin Coronavirus (PCR) Positive A 07/03/20 07/03/20 07/03/20 11:40 16:46 22:33 RBC MCH RDW Lymph % (Auto) [place] % (Auto) Lymph # (Auto) Seg Neutrophils % Seg Neutrophils # D-Dimer ABG pH ABG pO2 ABG HCO3 ABG O2 Saturation ABG Base Excess Oxyhemoglobin Sodium Potassium Chloride Carbon Dioxide BUN Glucose POC Glucose 220 H 188 H 162 H Hemoglobin A1c Ferritin Lactate Dehydrogenase Total Creatine Kinase C-Reactive Protein Total Protein Albumin Coronavirus (PCR) 07/04/20 07/04/20 07/04/20 02:44 11:39 13:55 RBC MCH RDW Lymph % (Auto) [place] % (Auto) Lymph # (Auto) Seg Neutrophils % Seg Neutrophils # D-Dimer 397.35 H ABG pH 7.456 H ABG pO2 60.7 L ABG HCO3 27.5 H ABG O2 Saturation 93.6 L ABG Base Excess 3.4 H Oxyhemoglobin 91.6 L Sodium Potassium Chloride Carbon Dioxide BUN Glucose POC Glucose 208 H Hemoglobin A1c Ferritin Lactate Dehydrogenase Total Creatine Kinase C-Reactive Protein Total Protein Albumin Coronavirus (PCR) 07/04/20 07/04/20 07/04/20 13:55 13:55 17:17 RBC MCH RDW Lymph % (Auto) [place] % (Auto) Lymph # (Auto) Seg Neutrophils % Seg Neutrophils # D-Dimer ABG pH ABG pO2 ABG HCO3 ABG O2 Saturation ABG Base Excess Oxyhemoglobin Sodium Potassium Chloride Carbon Dioxide BUN Glucose 188 H POC Glucose 139 H Hemoglobin A1c Ferritin 1691.0 H Lactate Dehydrogenase 349 H Total Creatine Kinase C-Reactive Protein 4.80 H Total Protein Albumin Coronavirus (PCR) 07/04/20 07/05/20 07/05/20 22:01 12:28 16:45 RBC MCH RDW Lymph % (Auto) [place] % (Auto) Lymph # (Auto) Seg Neutrophils % Seg Neutrophils # D-Dimer ABG pH ABG pO2 ABG HCO3 ABG O2 Saturation ABG Base Excess Oxyhemoglobin Sodium Potassium Chloride Carbon Dioxide BUN Glucose POC Glucose 143 H 113 H 186 H Hemoglobin A1c Ferritin Lactate Dehydrogenase Total Creatine Kinase C-Reactive Protein Total Protein Albumin Coronavirus (PCR) 07/05/20 07/06/20 07/06/20 21:53 11:49 18:52 RBC MCH RDW Lymph % (Auto) [place] % (Auto) Lymph # (Auto) Seg Neutrophils % Seg Neutrophils # D-Dimer ABG pH ABG pO2 ABG HCO3 ABG O2 Saturation ABG Base Excess Oxyhemoglobin Sodium Potassium Chloride Carbon Dioxide BUN Glucose POC Glucose 167 H 106 H 235 H Hemoglobin A1c Ferritin Lactate Dehydrogenase Total Creatine Kinase C-Reactive Protein Total Protein Albumin Coronavirus (PCR) 07/06/20 07/07/20 07/07/20 22:24 05:19 11:09 RBC MCH RDW Lymph % (Auto) [place] % (Auto) Lymph # (Auto) Seg Neutrophils % Seg Neutrophils # D-Dimer ABG pH ABG pO2 ABG HCO3 ABG O2 Saturation ABG Base Excess Oxyhemoglobin Sodium Potassium Chloride Carbon Dioxide 31 H BUN Glucose 122 H POC Glucose 201 H 132 H Hemoglobin A1c Ferritin Lactate Dehydrogenase Total Creatine Kinase C-Reactive Protein Total Protein Albumin 3.2 L Coronavirus (PCR) 07/07/20 07/07/20 07/08/20 16:03 21:00 05:16 RBC MCH RDW Lymph % (Auto) [place] % (Auto) Lymph # (Auto) Seg Neutrophils % Seg Neutrophils # D-Dimer ABG pH ABG pO2 ABG HCO3 ABG O2 Saturation ABG Base Excess Oxyhemoglobin Sodium Potassium Chloride Carbon Dioxide 31 H BUN Glucose 112 H POC Glucose 162 H 238 H Hemoglobin A1c Ferritin Lactate Dehydrogenase Total Creatine Kinase C-Reactive Protein Total Protein Albumin 3.2 L Coronavirus (PCR) 07/08/20 07/08/20 07/08/20 11:51 15:03 15:03 RBC MCH RDW Lymph % (Auto) [place] % (Auto) Lymph # (Auto) Seg Neutrophils % Seg Neutrophils # D-Dimer 801.22 H ABG pH ABG pO2 ABG HCO3 ABG O2 Saturation ABG Base Excess Oxyhemoglobin Sodium Potassium Chloride Carbon Dioxide BUN Glucose POC Glucose 121 H Hemoglobin A1c Ferritin 1359.0 H Lactate Dehydrogenase Total Creatine Kinase C-Reactive Protein Total Protein Albumin Coronavirus (PCR) 07/08/20 07/08/20 07/08/20 15:03 16:55 16:59 RBC MCH RDW Lymph % (Auto) [place] % (Auto) Lymph # (Auto) Seg Neutrophils % Seg Neutrophils # D-Dimer ABG pH ABG pO2 ABG HCO3 ABG O2 Saturation ABG Base Excess Oxyhemoglobin Sodium Potassium Chloride Carbon Dioxide BUN Glucose POC Glucose 241 H Hemoglobin A1c 7.2 H Ferritin Lactate Dehydrogenase 384 H Total Creatine Kinase C-Reactive Protein 5.10 H Total Protein Albumin Coronavirus (PCR) 07/08/20 07/09/20 07/09/20 22:20 11:04 16:41 RBC MCH RDW Lymph % (Auto) [place] % (Auto) Lymph # (Auto) Seg Neutrophils % Seg Neutrophils # D-Dimer ABG pH ABG pO2 ABG HCO3 ABG O2 Saturation ABG Base Excess Oxyhemoglobin Sodium Potassium Chloride Carbon Dioxide BUN Glucose POC Glucose 169 H 140 H 281 H Hemoglobin A1c Ferritin Lactate Dehydrogenase Total Creatine Kinase C-Reactive Protein Total Protein Albumin Coronavirus (PCR) 07/09/20 07/10/20 07/10/20 22:17 08:14 11:34 RBC MCH RDW Lymph % (Auto) [place] % (Auto) Lymph # (Auto) Seg Neutrophils % Seg Neutrophils # D-Dimer ABG pH ABG pO2 ABG HCO3 ABG O2 Saturation ABG Base Excess Oxyhemoglobin Sodium Potassium Chloride Carbon Dioxide BUN Glucose POC Glucose 291 H 153 H 310 H Hemoglobin A1c Ferritin Lactate Dehydrogenase Total Creatine Kinase C-Reactive Protein Total Protein Albumin Coronavirus (PCR) 0107/10/20 07/11/20 17:22 21:44 07:42 RBC MCH RDW Lymph % (Auto) [place] % (Auto) Lymph # (Auto) Seg Neutrophils % Seg Neutrophils # D-Dimer ABG pH ABG pO2 ABG HCO3 ABG O2 Saturation ABG Base Excess Oxyhemoglobin Sodium Potassium Chloride Carbon Dioxide BUN Glucose POC Glucose 191 H 283 H 187 H Hemoglobin A1c Ferritin Lactate Dehydrogenase Total Creatine Kinase C-Reactive Protein Total Protein Albumin Coronavirus (PCR) 07/11/20 07/11/20 07/11/20 11:48 17:38 21:15 RBC MCH RDW Lymph % (Auto) [place] % (Auto) Lymph # (Auto) Seg Neutrophils % Seg Neutrophils # D-Dimer ABG pH ABG pO2 ABG HCO3 ABG O2 Saturation ABG Base Excess Oxyhemoglobin Sodium Potassium Chloride Carbon Dioxide BUN Glucose POC Glucose 323 H 341 H 340 H Hemoglobin A1c Ferritin Lactate Dehydrogenase Total Creatine Kinase C-Reactive Protein Total Protein Albumin Coronavirus (PCR) 07/12/20 07/12/20 07/12/20 05:00 07:51 11:46 RBC MCH RDW Lymph % (Auto) [place] % (Auto) Lymph # (Auto) Seg Neutrophils % Seg Neutrophils # D-Dimer ABG pH ABG pO2 ABG HCO3 ABG O2 Saturation ABG Base Excess Oxyhemoglobin Sodium 132 L Potassium Chloride 94.0 L Carbon Dioxide BUN 20 H Glucose 254 H POC Glucose 238 H 323 H Hemoglobin A1c Ferritin Lactate Dehydrogenase Total Creatine Kinase C-Reactive Protein Total Protein Albumin Coronavirus (PCR) 07/12/20 07/12/20 07/13/20 17:21 21:26 08:31 RBC MCH RDW Lymph % (Auto) [place] % (Auto) Lymph # (Auto) Seg Neutrophils % Seg Neutrophils # D-Dimer ABG pH ABG pO2 ABG HCO3 ABG O2 Saturation ABG Base Excess Oxyhemoglobin Sodium Potassium Chloride Carbon Dioxide BUN Glucose POC Glucose 333 H 399 H 290 H Hemoglobin A1c Ferritin Lactate Dehydrogenase Total Creatine Kinase C-Reactive Protein Total Protein Albumin Coronavirus (PCR) 07/13/20 07/13/20 07/13/20 11:51 17:30 21:13 RBC MCH RDW Lymph % (Auto) [place] % (Auto) Lymph # (Auto) Seg Neutrophils % Seg Neutrophils # D-Dimer ABG pH ABG pO2 ABG HCO3 ABG O2 Saturation ABG Base Excess Oxyhemoglobin Sodium Potassium Chloride Carbon Dioxide BUN Glucose POC Glucose 357 H 254 H 301 H Hemoglobin A1c Ferritin Lactate Dehydrogenase Total Creatine Kinase C-Reactive Protein Total Protein Albumin Coronavirus (PCR) 07/14/20 07/14/20 07/14/20 08:44 11:53 16:57 RBC MCH RDW Lymph % (Auto) [place] % (Auto) Lymph # (Auto) Seg Neutrophils % Seg Neutrophils # D-Dimer ABG pH ABG pO2 ABG HCO3 ABG O2 Saturation ABG Base Excess Oxyhemoglobin Sodium Potassium Chloride Carbon Dioxide BUN Glucose POC Glucose 266 H 321 H 348 H Hemoglobin A1c Ferritin Lactate Dehydrogenase Total Creatine Kinase C-Reactive Protein Total Protein Albumin Coronavirus (PCR) 07/14/20 07/15/20 07/15/20 21:50 00:43 05:52 RBC 5.25 H MCH 25 L RDW 16.5 H Lymph % (Auto) 11.3 L [place] % (Auto) Lymph # (Auto) 1.1 L Seg Neutrophils % 82.8 H Seg Neutrophils # 8.0 H D-Dimer ABG pH ABG pO2 ABG HCO3 ABG O2 Saturation ABG Base Excess Oxyhemoglobin Sodium Potassium Chloride Carbon Dioxide BUN Glucose POC Glucose 399 H 257 H Hemoglobin A1c Ferritin Lactate Dehydrogenase Total Creatine Kinase C-Reactive Protein Total Protein Albumin Coronavirus (PCR) 07/15/20 07/15/20 07/15/20 05:52 07:26 11:27 RBC MCH RDW Lymph % (Auto) [place] % (Auto) Lymph # (Auto) Seg Neutrophils % Seg Neutrophils # D-Dimer ABG pH ABG pO2 ABG HCO3 ABG O2 Saturation ABG Base Excess Oxyhemoglobin Sodium 134 L Potassium 6.0 H D Chloride 94.6 L Carbon Dioxide 34 H BUN 22 H Glucose 290 H POC Glucose 269 H 360 H Hemoglobin A1c Ferritin Lactate Dehydrogenase Total Creatine Kinase C-Reactive Protein Total Protein 5.8 L Albumin 3.2 L Coronavirus (PCR)
[2020-07-15] MEDS ORDERED: methylPREDNISolone Sod Succinate 125 MG/2 ML INJ IV SCH (14:00)
[2020-07-15] MEDS: methylPREDNISolone Sod Succinate 40 MG/1 ML INJ IV SCH ×2 (14:30→21:59)
[2020-07-15] MEDS: ENOXAPARIN 40 MG/0.4 ML INJ SUB-Q SCH (21:59)
[2020-07-15] MEDS: INSULIN GLARGINE 100 UNITS/ML SUB-Q SCH (21:59)
[2020-07-16] MEDS: methylPREDNISolone Sod Succinate 40 MG/1 ML INJ IV SCH ×3 (05:49→21:57)
--- NOTE | 2020-07-16 06:56 | Progress Note ---
Assessment and Plan Assessment and Plan Assessment and plan: History of obstructive sleep apnea/on CPAP at night, noncompliant Covid positive test; 07/03/2020 --Severe hypoxemia; secondary to pneumonia due to Covid Oxygen titrate O2 sats more than 90%, on high flow oxygen 30L /100 %/93 O2sat Nebulizers, prone position, pulmonary consulted Improved to 6 L nasal cannula oxygen Discharge when 8 days 2 L nasal cannula oxygen Otherwise comfortable -- Pneumonia due to COVID-19 virus Current Visit: Yes Status: Acute Plan to address problem: Contact and droplet isolation Continue dexamethasone for total 10 days Continue remdesivir complete 4 doses Prone position as tolerated Trend inflammatory markers home oxygen evaluation Discharge planning when medically stable Patient is severely hypoxemic requiring high flow oxygen ID pulmonary consulted Follow recommendations --Severe sepsis secondary to Covid pneumonia Current Visit: Yes Status: Acute . Plan to address problem: Tachycardia, fever, pneumonia on chest x-ray --Type II diabetes mellitus Current Visit: Yes Status: Acute . Plan to address problem: Accu-Chek sliding scale coverage ADA diet Long-acting insulin as needed, check A1c Diabetic education, diabetic diet counseling Monitor closely and adjust management as needed -- Hypertension Current Visit: Yes Status: Acute Plan to address problem: Patient currently has optimal control blood pressure. Continue antihypertensives. --DVT prophylaxis Current Visit: Yes Status: Acute Plan to address problem: Currently on Lovenox. -- Full code status Current Visit: Yes Status: Acute --Morbid obesity (BMI 48.9) Current Visit: Yes Status: Acute Plan to address problem: This increases risk from COVID-19 pneumonia and COVID-19 itself. Patient educated on lifestyle changes upon discharge. Plan of care reviewed with the patient and her nurse Subjective Date of service: 07/15/20 Principal diagnosis: COVID-19 pneumonia Interval history: 39-year-old -[place] female with known history of diabetes mellitus, hypertension and COPD presenting to the emergency room today complaining of shortness of breath which has been ongoing for about 6 days. Shortness of breath is said to worsen with activity. Patient indicates that she had some low-grade fever with chills initially which has since subsided. She denies any chest pain, no headache or dizziness, no diaphoresis, no nausea vomiting, no abdominal pain, no diarrhea, no hematuria or dysuria. Patient denies any sick contacts and no recent travel. Denies any contact with anyone with COVID-19. Patient was tachycardic, tachypneic and slightly hypoxic on minimal exertion upon arrival in the emergency room. Work-up today reveals right lower lobe pneumonia on the chest x-ray. Patient is being admitted for pneumonia. We will also rule out for COVID-19. Patient is morbidly obese , severe COVID-19 sepsis ,critically ill In severe distress requiring high flow oxygen, very poor prognosis 07/04-patient was on CPAP last night. Now weaned down to 6 L of O2. We closely monitor patient's oxygen saturations with 6 L. Otherwise patient resting comfortably now in bed in prone position. -patient appears to be doing worse than yesterday. Still able to wean down to 6 L however patient became more hypoxic. Overall conditions of morbid obesity, sleep apnea, obesity hypoventilation syndrome. Place patient at extreme risk. Patient is aware of evaluation all questions and concerns answered. Patient will require oxygen upon discharge. History patient was complained of shortness of breath even prior to Covid. Will most likely require home O2 prior to developing Covid. 07/10/2020; patient morbidly obese remains on high flow oxygen, 30 L/100/95% Continuously on high flow oxygen, very poor prognosis, no beds available in ICU for close monitoring Strictly informed the patient not to remove the oxygen Patient is critically ill with continuous requirement of high flow oxygen Multiple comorbidities, very poor prognosis 07/11/2020 two 07/14/2020 On high flow oxygen No improvement in symptoms 07/15/2020 On 6 L nasal cannula oxygen Objective - Constitutional Vitals: Vital Signs - 12hr 07/15/20 07/15/20 07/15/20 20:00 21:20 23:23 Temperature 97.4 F L Pulse Rate 103 H 97 H Respiratory 16 20 Rate Blood Pressure 134/70 O2 Sat by Pulse 92 89 97 Oximetry General appearance: Present: no acute distress, mild distress, well-nourished - EENT Eyes: PERRL, EOM intact ENT: hearing intact, clear oral mucosa Ears: bilateral: normal - Neck Neck: supple, normal ROM - Respiratory Respiratory effort: normal Respiratory: bilateral: CTA - Breasts Breasts: normal - Cardiovascular Rhythm: regular Heart Sounds: Present: S1 & S2. Absent: gallop, rub Extremities: pulses intact, No edema, normal color, Full ROM - Gastrointestinal General gastrointestinal: Present: soft, non-tender, non-distended, normal bowel sounds - Genitourinary Female genitourinary: normal - Integumentary Integumentary: clear, warm, dry - Musculoskeletal Musculoskeletal: 1, strength equal bilaterally - Neurologic Neurologic: moves all extremities - Psychiatric Psychiatric: memory intact, appropriate mood/affect, intact judgment & insight - Allied health notes Allied health notes reviewed: nursing, case management - Labs CBC & Chem 7: 07/15/20 05:52 07/15/20 05:52 Labs: Abnormal lab results 07/15/20 07/15/20 07/15/20 Range/Units 05:52 07:26 11:27 Sodium 134 L (137-145) mmol/L Potassium 6.0 H D (3.6-5.0) mmol/L Chloride 94.6 L (98-107) mmol/L Carbon Dioxide 34 H (22-30) mmol/L BUN 22 H (7-17) mg/dL Glucose 290 H (65-100) mg/dL POC Glucose 269 H 360 H (70-105) mg/dL Total Protein 5.8 L (6.3-8.2) g/dL Albumin 3.2 L (3.9-5) g/dL 07/15/20 07/15/20 Range/Units 16:11 21:18 Sodium (137-145) mmol/L Potassium (3.6-5.0) mmol/L Chloride (98-107) mmol/L Carbon Dioxide (22-30) mmol/L BUN (7-17) mg/dL Glucose (65-100) mg/dL POC Glucose 344 H 359 H (70-105) mg/dL Total Protein (6.3-8.2) g/dL Albumin (3.9-5) g/dL
[2020-07-16] MEDS: NYSTATIN POWDER 15 GM TP SCH ×3 (10:18→22:06)
[2020-07-16] MEDS: INSULIN LISPRO 100 UNIT/ML VIAL 3 mL SUB-Q SCH ×4 (10:44→21:58)
[2020-07-16] MEDS: TIOTROPIUM 18 MCG CAP INHALATION IH SCH (10:45)
[2020-07-16] MEDS: ALBUTEROL 8.5 GM MDI INHALATION IH SCH (10:45)
--- NOTE | 2020-07-16 11:22 | Progress Note ---
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 1. Will change steroids to 40q8, tomorrow can likely place on 60 of prednisone daily and taper as follows: 60 daily for 3 days, 40 daily for 3 days, 20 daily for 3 days, then stop. 2. continue proning 3. Suggest trial of diuresis with IV lasix, not given yesterday but since oxygen requirement continues to improve, can hold off. 4. Continue to wean FiO2 for sats >88%. Needs ambulatory test to determine home oxygen needs 5. Hopeful discharge in the next 24-48 hours. Subjective Date of service: 07/16/20 Principal diagnosis: COVID-19 pneumonia Interval history: Patient weaned down to 2 liters overnight. No acute issues. Objective Vital Signs - 12hr 07/15/20 23:23 Pulse Rate 97 H Respiratory 20 Rate O2 Sat by Pulse 97 Oximetry Constitutional: no acute distress Eyes: non-icteric ENT: oropharynx moist Neck: supple Effort: normal Ascultation: Bilateral: diminished breath sounds Cardiovascular: regular rate and rhythm Gastrointestinal: normoactive bowel sounds, soft, non-tender Integumentary: normal Neurologic: normal mental status CBC and BMP: 07/15/20 05:52 07/15/20 05:52 ABG, PT/INR, D-dimer: ABG ABG pH 7.456 pH Units (7.350-7.450) H 07/04/20 02:44 ABG pCO2 39.9 mm Hg 07/04/20 02:44 ABG pO2 60.7 mm Hg (80.0-90.0) L 07/04/20 02:44 ABG O2 Saturation 93.6 % (95.0-99.0) L 07/04/20 02:44 PT/INR, D-dimer D-Dimer 801.22 ng/mlDDU (0-234) H 07/08/20 15:03 Abnormal lab findings: Abnormal Labs 07/02/20 07/02/20 07/02/20 22:37 22:37 22:37 RBC 5.16 H MCH 26 L RDW 16.8 H Lymph % (Auto) Butler % (Auto) 8.3 H Lymph # (Auto) Seg Neutrophils % Seg Neutrophils # D-Dimer ABG pH ABG pO2 ABG HCO3 ABG O2 Saturation ABG Base Excess Oxyhemoglobin Sodium 134 L Potassium Chloride 94.8 L Carbon Dioxide BUN Glucose 171 H POC Glucose Hemoglobin A1c Ferritin Lactate Dehydrogenase Total Creatine Kinase 384 H C-Reactive Protein Total Protein Albumin 3.6 L Coronavirus (PCR) 07/03/20 07/03/20 07/03/20 03:12 03:14 03:14 RBC MCH RDW Lymph % (Auto) Butler % (Auto) Lymph # (Auto) Seg Neutrophils % Seg Neutrophils # D-Dimer 626.31 H ABG pH ABG pO2 ABG HCO3 ABG O2 Saturation ABG Base Excess Oxyhemoglobin Sodium Potassium Chloride Carbon Dioxide BUN Glucose 162 H POC Glucose 166 H Hemoglobin A1c Ferritin Lactate Dehydrogenase 337 H Total Creatine Kinase C-Reactive Protein 9.30 H Total Protein Albumin Coronavirus (PCR) 07/03/20 07/03/20 07/03/20 03:14 08:20 10:35 RBC MCH RDW Lymph % (Auto) Butler % (Auto) Lymph # (Auto) Seg Neutrophils % Seg Neutrophils # D-Dimer ABG pH ABG pO2 ABG HCO3 ABG O2 Saturation ABG Base Excess Oxyhemoglobin Sodium Potassium Chloride Carbon Dioxide BUN Glucose POC Glucose 157 H Hemoglobin A1c Ferritin 1568.0 H Lactate Dehydrogenase Total Creatine Kinase C-Reactive Protein Total Protein Albumin Coronavirus (PCR) Positive A 07/03/20 07/03/20 07/03/20 11:40 16:46 22:33 RBC MCH RDW Lymph % (Auto) Butler % (Auto) Lymph # (Auto) Seg Neutrophils % Seg Neutrophils # D-Dimer ABG pH ABG pO2 ABG HCO3 ABG O2 Saturation ABG Base Excess Oxyhemoglobin Sodium Potassium Chloride Carbon Dioxide BUN Glucose POC Glucose 220 H 188 H 162 H Hemoglobin A1c Ferritin Lactate Dehydrogenase Total Creatine Kinase C-Reactive Protein Total Protein Albumin Coronavirus (PCR) 07/04/20 07/04/20 07/04/20 02:44 11:39 13:55 RBC MCH RDW Lymph % (Auto) Butler % (Auto) Lymph # (Auto) Seg Neutrophils % Seg Neutrophils # D-Dimer 397.35 H ABG pH 7.456 H ABG pO2 60.7 L ABG HCO3 27.5 H ABG O2 Saturation 93.6 L ABG Base Excess 3.4 H Oxyhemoglobin 91.6 L Sodium Potassium Chloride Carbon Dioxide BUN Glucose POC Glucose 208 H Hemoglobin A1c Ferritin Lactate Dehydrogenase Total Creatine Kinase C-Reactive Protein Total Protein Albumin Coronavirus (PCR) 07/04/20 07/04/20 07/04/20 13:55 13:55 17:17 RBC MCH RDW Lymph % (Auto) Butler % (Auto) Lymph # (Auto) Seg Neutrophils % Seg Neutrophils # D-Dimer ABG pH ABG pO2 ABG HCO3 ABG O2 Saturation ABG Base Excess Oxyhemoglobin Sodium Potassium Chloride Carbon Dioxide BUN Glucose 188 H POC Glucose 139 H Hemoglobin A1c Ferritin 1691.0 H Lactate Dehydrogenase 349 H Total Creatine Kinase C-Reactive Protein 4.80 H Total Protein Albumin Coronavirus (PCR) 07/04/20 07/05/20 07/05/20 22:01 12:28 16:45 RBC MCH RDW Lymph % (Auto) Butler % (Auto) Lymph # (Auto) Seg Neutrophils % Seg Neutrophils # D-Dimer ABG pH ABG pO2 ABG HCO3 ABG O2 Saturation ABG Base Excess Oxyhemoglobin Sodium Potassium Chloride Carbon Dioxide BUN Glucose POC Glucose 143 H 113 H 186 H Hemoglobin A1c Ferritin Lactate Dehydrogenase Total Creatine Kinase C-Reactive Protein Total Protein Albumin Coronavirus (PCR) 07/05/20 07/06/20 07/06/20 21:53 11:49 18:52 RBC MCH RDW Lymph % (Auto) Butler % (Auto) Lymph # (Auto) Seg Neutrophils % Seg Neutrophils # D-Dimer ABG pH ABG pO2 ABG HCO3 ABG O2 Saturation ABG Base Excess Oxyhemoglobin Sodium Potassium Chloride Carbon Dioxide BUN Glucose POC Glucose 167 H 106 H 235 H Hemoglobin A1c Ferritin Lactate Dehydrogenase Total Creatine Kinase C-Reactive Protein Total Protein Albumin Coronavirus (PCR) 07/06/20 07/07/20 07/07/20 22:24 05:19 11:09 RBC MCH RDW Lymph % (Auto) Butler % (Auto) Lymph # (Auto) Seg Neutrophils % Seg Neutrophils # D-Dimer ABG pH ABG pO2 ABG HCO3 ABG O2 Saturation ABG Base Excess Oxyhemoglobin Sodium Potassium Chloride Carbon Dioxide 31 H BUN Glucose 122 H POC Glucose 201 H 132 H Hemoglobin A1c Ferritin Lactate Dehydrogenase Total Creatine Kinase C-Reactive Protein Total Protein Albumin 3.2 L Coronavirus (PCR) 07/07/20 07/07/20 07/08/20 16:03 21:00 05:16 RBC MCH RDW Lymph % (Auto) Butler % (Auto) Lymph # (Auto) Seg Neutrophils % Seg Neutrophils # D-Dimer ABG pH ABG pO2 ABG HCO3 ABG O2 Saturation ABG Base Excess Oxyhemoglobin Sodium Potassium Chloride Carbon Dioxide 31 H BUN Glucose 112 H POC Glucose 162 H 238 H Hemoglobin A1c Ferritin Lactate Dehydrogenase Total Creatine Kinase C-Reactive Protein Total Protein Albumin 3.2 L Coronavirus (PCR) 07/08/20 07/08/20 07/08/20 11:51 15:03 15:03 RBC MCH RDW Lymph % (Auto) Butler % (Auto) Lymph # (Auto) Seg Neutrophils % Seg Neutrophils # D-Dimer 801.22 H ABG pH ABG pO2 ABG HCO3 ABG O2 Saturation ABG Base Excess Oxyhemoglobin Sodium Potassium Chloride Carbon Dioxide BUN Glucose POC Glucose 121 H Hemoglobin A1c Ferritin 1359.0 H Lactate Dehydrogenase Total Creatine Kinase C-Reactive Protein Total Protein Albumin Coronavirus (PCR) 07/08/20 07/08/20 07/08/20 15:03 16:55 16:59 RBC MCH RDW Lymph % (Auto) Butler % (Auto) Lymph # (Auto) Seg Neutrophils % Seg Neutrophils # D-Dimer ABG pH ABG pO2 ABG HCO3 ABG O2 Saturation ABG Base Excess Oxyhemoglobin Sodium Potassium Chloride Carbon Dioxide BUN Glucose POC Glucose 241 H Hemoglobin A1c 7.2 H Ferritin Lactate Dehydrogenase 384 H Total Creatine Kinase C-Reactive Protein 5.10 H Total Protein Albumin Coronavirus (PCR) 07/08/20 07/09/20 07/09/20 22:20 11:04 16:41 RBC MCH RDW Lymph % (Auto) Butler % (Auto) Lymph # (Auto) Seg Neutrophils % Seg Neutrophils # D-Dimer ABG pH ABG pO2 ABG HCO3 ABG O2 Saturation ABG Base Excess Oxyhemoglobin Sodium Potassium Chloride Carbon Dioxide BUN Glucose POC Glucose 169 H 140 H 281 H Hemoglobin A1c Ferritin Lactate Dehydrogenase Total Creatine Kinase C-Reactive Protein Total Protein Albumin Coronavirus (PCR) 07/09/20 07/10/20 07/10/20 22:17 08:14 11:34 RBC MCH RDW Lymph % (Auto) Butler % (Auto) Lymph # (Auto) Seg Neutrophils % Seg Neutrophils # D-Dimer ABG pH ABG pO2 ABG HCO3 ABG O2 Saturation ABG Base Excess Oxyhemoglobin Sodium Potassium Chloride Carbon Dioxide BUN Glucose POC Glucose 291 H 153 H 310 H Hemoglobin A1c Ferritin Lactate Dehydrogenase Total Creatine Kinase C-Reactive Protein Total Protein Albumin Coronavirus (PCR) 07/10/20 07/10/20 07/11/20 17:22 21:44 07:42 RBC MCH RDW Lymph % (Auto) Butler % (Auto) Lymph # (Auto) Seg Neutrophils % Seg Neutrophils # D-Dimer ABG pH ABG pO2 ABG HCO3 ABG O2 Saturation ABG Base Excess Oxyhemoglobin Sodium Potassium Chloride Carbon Dioxide BUN Glucose POC Glucose 191 H 283 H 187 H Hemoglobin A1c Ferritin Lactate Dehydrogenase Total Creatine Kinase C-Reactive Protein Total Protein Albumin Coronavirus (PCR) 07/11/20 07/11/20 07/11/20 11:48 17:38 21:15 RBC MCH RDW Lymph % (Auto) Butler % (Auto) Lymph # (Auto) Seg Neutrophils % Seg Neutrophils # D-Dimer ABG pH ABG pO2 ABG HCO3 ABG O2 Saturation ABG Base Excess Oxyhemoglobin Sodium Potassium Chloride Carbon Dioxide BUN Glucose POC Glucose 323 H 341 H 340 H Hemoglobin A1c Ferritin Lactate Dehydrogenase Total Creatine Kinase C-Reactive Protein Total Protein Albumin Coronavirus (PCR) 07/12/20 07/12/20 07/12/20 05:00 07:51 11:46 RBC MCH RDW Lymph % (Auto) Butler % (Auto) Lymph # (Auto) Seg Neutrophils % Seg Neutrophils # D-Dimer ABG pH ABG pO2 ABG HCO3 ABG O2 Saturation ABG Base Excess Oxyhemoglobin Sodium 132 L Potassium Chloride 94.0 L Carbon Dioxide BUN 20 H Glucose 254 H POC Glucose 238 H 323 H Hemoglobin A1c Ferritin Lactate Dehydrogenase Total Creatine Kinase C-Reactive Protein Total Protein Albumin Coronavirus (PCR) 07/12/20 07/12/20 07/13/20 17:21 21:26 08:31 RBC MCH RDW Lymph % (Auto) Butler % (Auto) Lymph # (Auto) Seg Neutrophils % Seg Neutrophils # D-Dimer ABG pH ABG pO2 ABG HCO3 ABG O2 Saturation ABG Base Excess Oxyhemoglobin Sodium Potassium Chloride Carbon Dioxide BUN Glucose POC Glucose 333 H 399 H 290 H Hemoglobin A1c Ferritin Lactate Dehydrogenase Total Creatine Kinase C-Reactive Protein Total Protein Albumin Coronavirus (PCR) 07/13/20 07/13/20 07/13/20 11:51 17:30 21:13 RBC MCH RDW Lymph % (Auto) Butler % (Auto) Lymph # (Auto) Seg Neutrophils % Seg Neutrophils # D-Dimer ABG pH ABG pO2 ABG HCO3 ABG O2 Saturation ABG Base Excess Oxyhemoglobin Sodium Potassium Chloride Carbon Dioxide BUN Glucose POC Glucose 357 H 254 H 301 H Hemoglobin A1c Ferritin Lactate Dehydrogenase Total Creatine Kinase C-Reactive Protein Total Protein Albumin Coronavirus (PCR) 07/14/20 07/14/20 07/14/20 08:44 11:53 16:57 RBC MCH RDW Lymph % (Auto) Butler % (Auto) Lymph # (Auto) Seg Neutrophils % Seg Neutrophils # D-Dimer ABG pH ABG pO2 ABG HCO3 ABG O2 Saturation ABG Base Excess Oxyhemoglobin Sodium Potassium Chloride Carbon Dioxide BUN Glucose POC Glucose 266 H 321 H 348 H Hemoglobin A1c Ferritin Lactate Dehydrogenase Total Creatine Kinase C-Reactive Protein Total Protein Albumin Coronavirus (PCR) 07/14/20 07/15/20 07/15/20 21:50 00:43 05:52 RBC 5.25 H MCH 25 L RDW 16.5 H Lymph % (Auto) 11.3 L Butler % (Auto) Lymph # (Auto) 1.1 L Seg Neutrophils % 82.8 H Seg Neutrophils # 8.0 H D-Dimer ABG pH ABG pO2 ABG HCO3 ABG O2 Saturation ABG Base Excess Oxyhemoglobin Sodium Potassium Chloride Carbon Dioxide BUN Glucose POC Glucose 399 H 257 H Hemoglobin A1c Ferritin Lactate Dehydrogenase Total Creatine Kinase C-Reactive Protein Total Protein Albumin Coronavirus (PCR) 07/15/20 07/15/20 07/15/20 05:52 07:26 11:27 RBC MCH RDW Lymph % (Auto) Butler % (Auto) Lymph # (Auto) Seg Neutrophils % Seg Neutrophils # D-Dimer ABG pH ABG pO2 ABG HCO3 ABG O2 Saturation ABG Base Excess Oxyhemoglobin Sodium 134 L Potassium 6.0 H D Chloride 94.6 L Carbon Dioxide 34 H BUN 22 H Glucose 290 H POC Glucose 269 H 360 H Hemoglobin A1c Ferritin Lactate Dehydrogenase Total Creatine Kinase C-Reactive Protein Total Protein 5.8 L Albumin 3.2 L Coronavirus (PCR) 07/15/20 07/15/20 07/16/20 16:11 21:18 10:38 RBC MCH RDW Lymph % (Auto) Butler % (Auto) Lymph # (Auto) Seg Neutrophils % Seg Neutrophils # D-Dimer ABG pH ABG pO2 ABG HCO3 ABG O2 Saturation ABG Base Excess Oxyhemoglobin Sodium Potassium Chloride Carbon Dioxide BUN Glucose POC Glucose 344 H 359 H 354 H Hemoglobin A1c Ferritin Lactate Dehydrogenase Total Creatine Kinase C-Reactive Protein Total Protein Albumin Coronavirus (PCR)
[2020-07-16] MEDS: ENOXAPARIN 40 MG/0.4 ML INJ SUB-Q SCH (21:57)
[2020-07-16] MEDS: INSULIN GLARGINE 100 UNITS/ML SUB-Q SCH (21:58)
--- NOTE | 2020-07-16 23:42 | Progress Note ---
Assessment and Plan Assessment and Plan Assessment and plan: History of obstructive sleep apnea/on CPAP at night, noncompliant Covid positive test; 07/03/2020 --Severe hypoxemia; secondary to pneumonia due to Covid Oxygen titrate O2 sats more than 90%, on high flow oxygen 30L /100 %/93 O2sat Nebulizers, prone position, pulmonary consulted Improved to 6 L nasal cannula oxygen Discharge when 8 days 2 L nasal cannula oxygen Otherwise comfortable -- Pneumonia due to COVID-19 virus Current Visit: Yes Status: Acute Plan to address problem: Contact and droplet isolation Continue dexamethasone for total 10 days Continue remdesivir complete 4 doses Prone position as tolerated Trend inflammatory markers home oxygen evaluation Discharge planning when medically stable Patient is severely hypoxemic requiring high flow oxygen ID pulmonary consulted Follow recommendations --Severe sepsis secondary to Covid pneumonia Current Visit: Yes Status: Acute . Plan to address problem: Tachycardia, fever, pneumonia on chest x-ray --Type II diabetes mellitus Current Visit: Yes Status: Acute . Plan to address problem: Accu-Chek sliding scale coverage ADA diet Long-acting insulin as needed, check A1c Diabetic education, diabetic diet counseling Monitor closely and adjust management as needed -- Hypertension Current Visit: Yes Status: Acute Plan to address problem: Patient currently has optimal control blood pressure. Continue antihypertensives. --DVT prophylaxis Current Visit: Yes Status: Acute Plan to address problem: Currently on Lovenox. -- Full code status Current Visit: Yes Status: Acute --Morbid obesity (BMI 48.9) Current Visit: Yes Status: Acute Plan to address problem: This increases risk from COVID-19 pneumonia and COVID-19 itself. Patient educated on lifestyle changes upon discharge. Plan of care reviewed with the patient and her nurse Subjective Date of service: 07/16/20 Principal diagnosis: COVID-19 pneumonia Interval history: 39-year-old -[place] female with known history of diabetes mellitus, hypertension and COPD presenting to the emergency room today complaining of shortness of breath which has been ongoing for about 6 days. Shortness of breath is said to worsen with activity. Patient indicates that she had some low-grade fever with chills initially which has since subsided. She denies any chest pain, no headache or dizziness, no diaphoresis, no nausea vomiting, no abdominal pain, no diarrhea, no hematuria or dysuria. Patient denies any sick contacts and no recent travel. Denies any contact with anyone with COVID-19. Patient was tachycardic, tachypneic and slightly hypoxic on minimal exertion upon arrival in the emergency room. Work-up today reveals right lower lobe pneumonia on the chest x-ray. Patient is being admitted for pneumonia. We will also rule out for COVID-19. Patient is morbidly obese , severe COVID-19 sepsis ,critically ill In severe distress requiring high flow oxygen, very poor prognosis 07/04-patient was on CPAP last night. Now weaned down to 6 L of O2. We closely monitor patient's oxygen saturations with 6 L. Otherwise patient resting comfortably now in bed in prone position. -patient appears to be doing worse than yesterday. Still able to wean down to 6 L however patient became more hypoxic. Overall conditions of morbid obesity, sleep apnea, obesity hypoventilation syndrome. Place patient at extreme risk. Patient is aware of evaluation all questions and concerns answered. Patient will require oxygen upon discharge. History patient was complained of shortness of breath even prior to Covid. Will most likely require home O2 prior to developing Covid. 07/10/2020; patient morbidly obese remains on high flow oxygen, 30 L/100/95% Continuously on high flow oxygen, very poor prognosis, no beds available in ICU for close monitoring Strictly informed the patient not to remove the oxygen Patient is critically ill with continuous requirement of high flow oxygen Multiple comorbidities, very poor prognosis 07/11/2020 two 07/14/2020 On high flow oxygen No improvement in symptoms 07/15/2020 On 6 L nasal cannula oxygen 07/16/20 On 2 liters Objective - Constitutional Vitals: Vital Signs - 12hr 07/16/20 07/16/20 07/16/20 12:03 19:51 21:58 Temperature 97.5 F L 98.8 F Pulse Rate 95 H Respiratory 22 16 Rate Blood Pressure 109/64 109/70 O2 Sat by Pulse 94 89 Oximetry General appearance: Present: no acute distress, well-nourished - EENT Eyes: PERRL, EOM intact ENT: hearing intact, clear oral mucosa Ears: bilateral: normal - Neck Neck: supple, normal ROM - Respiratory Respiratory effort: normal Respiratory: bilateral: CTA - Breasts Breasts: normal - Cardiovascular Rhythm: regular Heart Sounds: Present: S1 & S2. Absent: gallop, rub Extremities: pulses intact, No edema, normal color, Full ROM - Gastrointestinal General gastrointestinal: Present: soft, non-tender, non-distended, normal bowel sounds - Genitourinary Female genitourinary: normal - Integumentary Integumentary: clear, warm, dry - Musculoskeletal Musculoskeletal: 1, strength equal bilaterally - Neurologic Neurologic: moves all extremities - Psychiatric Psychiatric: memory intact, appropriate mood/affect, intact judgment & insight - Labs CBC & Chem 7: 07/17/20 09:23 07/17/20 09:23 Labs: Abnormal lab results 07/16/20 07/16/20 07/16/20 Range/Units 10:38 12:03 16:50 POC Glucose 354 H 354 H 193 H (70-105) mg/dL
[2020-07-17] MEDS: methylPREDNISolone Sod Succinate 40 MG/1 ML INJ IV SCH ×2 (05:27→13:22)
[2020-07-17] MEDS: ALBUTEROL 8.5 GM MDI INHALATION IH SCH ×2 (05:27→11:30)
[2020-07-17] MEDS ORDERED: oxyCODONE /ACETAMINOPHEN 5-325MG TAB PO ONE (06:15)
[2020-07-17] MEDS: INSULIN LISPRO 100 UNIT/ML VIAL 3 mL SUB-Q SCH ×2 (09:43→12:50)
[2020-07-17] MEDS: NYSTATIN POWDER 15 GM TP SCH (09:45)
[2020-07-17 10:12] LABS: Basophils % (Auto) 0.3 % (0.0-1.8); Eosinophils # (Auto) 0.1 K/mm3 (0.0-0.4); Eosinophils % (Auto) 0.9 % (0.0-4.3); Hematocrit 42.1 % (30.3-42.9); Hemoglobin 13.6 gm/dl (10.1-14.3); Lymphocytes # (Auto) 2.6 K/mm3 (1.2-5.4); Lymphocytes % (Auto) 30.2 % (13.4-35.0); Mean Corpuscular HGB Conc 32 % (30-34); Mean Corpuscular Volume 79 fl (79-97); Monocytes # (Auto) 0.8 K/mm3 (0.0-0.8); Monocytes % (Auto) 9.8 % (0.0-7.3); Platelet Count 336 K/mm3 (140-440); Red Blood Count 5.31 M/mm3 (3.65-5.03); Red Cell Distribution Width 16.9 % (13.2-15.2)
[2020-07-17 10:24] LABS: BUN/Creatinine Ratio 29; Blood Urea Nitrogen 26 mg/dL (7-17); Calcium 8.5 mg/dL (8.4-10.2); Hemolysis Index 92
[2020-07-17] MEDS: TIOTROPIUM 18 MCG CAP INHALATION IH SCH (11:30)
--- NOTE | 2020-07-17 13:35 | Progress Note ---
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 1. place on 60 of prednisone daily and taper as follows: 60 daily for 3 days, 40 daily for 3 days, 20 daily for 3 days, then stop. 2. continue proning 3. Continue to wean FiO2 for sats >88%. Needs ambulatory test to determine home oxygen needs 4. Pulm chang stable, no objection to discharge. Will sign off. Subjective Date of service: 07/17/20 Principal diagnosis: COVID-19 pneumonia Interval history: No acute events. Down to 1 liter NC. Objective Vital Signs - 12hr 07/17/20 07/17/20 07/17/20 01:45 04:58 10:30 Temperature 98.8 F Pulse Rate 126 H Pulse Rate [ 117 H Anterior Bilateral Throughout] Pulse Rate [ 117 H Posterior Bilateral Throughout] Respiratory 26 H 16 Rate Respiratory 18 Rate [Anterior Bilateral Throughout] Respiratory 18 Rate [Posterior Bilateral Throughout] Blood Pressure 117/76 O2 Sat by Pulse 95 Oximetry 07/17/20 11:39 Temperature Pulse Rate Pulse Rate [ Anterior Bilateral Throughout] Pulse Rate [ Posterior Bilateral Throughout] Respiratory Rate Respiratory Rate [Anterior Bilateral Throughout] Respiratory Rate [Posterior Bilateral Throughout] Blood Pressure O2 Sat by Pulse 94 Oximetry Constitutional: no acute distress Eyes: non-icteric ENT: oropharynx moist Neck: supple Effort: normal Ascultation: Bilateral: diminished breath sounds Cardiovascular: regular rate and rhythm Gastrointestinal: normoactive bowel sounds, soft, non-tender Integumentary: normal Neurologic: normal mental status CBC and BMP: 07/17/20 09:23 07/17/20 09:23 ABG, PT/INR, D-dimer: ABG ABG pH 7.456 pH Units (7.350-7.450) H 07/04/20 02:44 ABG pCO2 39.9 mm Hg 07/04/20 02:44 ABG pO2 60.7 mm Hg (80.0-90.0) L 07/04/20 02:44 ABG O2 Saturation 93.6 % (95.0-99.0) L 07/04/20 02:44 PT/INR, D-dimer D-Dimer 801.22 ng/mlDDU (0-234) H 07/08/20 15:03 Abnormal lab findings: Abnormal Labs 07/02/20 07/02/20 07/02/20 22:37 22:37 22:37 RBC 5.16 H MCH 26 L RDW 16.8 H Lymph % (Auto) [place] % (Auto) 8.3 H Lymph # (Auto) Seg Neutrophils % Seg Neutrophils # D-Dimer ABG pH ABG pO2 ABG HCO3 ABG O2 Saturation ABG Base Excess Oxyhemoglobin Sodium 134 L Potassium Chloride 94.8 L Carbon Dioxide BUN Glucose 171 H POC Glucose Hemoglobin A1c Ferritin Lactate Dehydrogenase Total Creatine Kinase 384 H C-Reactive Protein Total Protein Albumin 3.6 L Coronavirus (PCR) 07/03/20 07/03/20 07/03/20 03:12 03:14 03:14 RBC MCH RDW Lymph % (Auto) [place] % (Auto) Lymph # (Auto) Seg Neutrophils % Seg Neutrophils # D-Dimer 626.31 H ABG pH ABG pO2 ABG HCO3 ABG O2 Saturation ABG Base Excess Oxyhemoglobin Sodium Potassium Chloride Carbon Dioxide BUN Glucose 162 H POC Glucose 166 H Hemoglobin A1c Ferritin Lactate Dehydrogenase 337 H Total Creatine Kinase C-Reactive Protein 9.30 H Total Protein Albumin Coronavirus (PCR) 07/03/20 07/03/20 07/03/20 03:14 08:20 10:35 RBC MCH RDW Lymph % (Auto) [place] % (Auto) Lymph # (Auto) Seg Neutrophils % Seg Neutrophils # D-Dimer ABG pH ABG pO2 ABG HCO3 ABG O2 Saturation ABG Base Excess Oxyhemoglobin Sodium Potassium Chloride Carbon Dioxide BUN Glucose POC Glucose 157 H Hemoglobin A1c Ferritin 1568.0 H Lactate Dehydrogenase Total Creatine Kinase C-Reactive Protein Total Protein Albumin Coronavirus (PCR) Positive A 07/03/20 07/03/20 07/03/20 11:40 16:46 22:33 RBC MCH RDW Lymph % (Auto) [place] % (Auto) Lymph # (Auto) Seg Neutrophils % Seg Neutrophils # D-Dimer ABG pH ABG pO2 ABG HCO3 ABG O2 Saturation ABG Base Excess Oxyhemoglobin Sodium Potassium Chloride Carbon Dioxide BUN Glucose POC Glucose 220 H 188 H 162 H Hemoglobin A1c Ferritin Lactate Dehydrogenase Total Creatine Kinase C-Reactive Protein Total Protein Albumin Coronavirus (PCR) 07/04/20 07/04/20 07/04/20 02:44 11:39 13:55 RBC MCH RDW Lymph % (Auto) [place] % (Auto) Lymph # (Auto) Seg Neutrophils % Seg Neutrophils # D-Dimer 397.35 H ABG pH 7.456 H ABG pO2 60.7 L ABG HCO3 27.5 H ABG O2 Saturation 93.6 L ABG Base Excess 3.4 H Oxyhemoglobin 91.6 L Sodium Potassium Chloride Carbon Dioxide BUN Glucose POC Glucose 208 H Hemoglobin A1c Ferritin Lactate Dehydrogenase Total Creatine Kinase C-Reactive Protein Total Protein Albumin Coronavirus (PCR) 07/04/20 07/04/20 07/04/20 13:55 13:55 17:17 RBC MCH RDW Lymph % (Auto) [place] % (Auto) Lymph # (Auto) Seg Neutrophils % Seg Neutrophils # D-Dimer ABG pH ABG pO2 ABG HCO3 ABG O2 Saturation ABG Base Excess Oxyhemoglobin Sodium Potassium Chloride Carbon Dioxide BUN Glucose 188 H POC Glucose 139 H Hemoglobin A1c Ferritin 1691.0 H Lactate Dehydrogenase 349 H Total Creatine Kinase C-Reactive Protein 4.80 H Total Protein Albumin Coronavirus (PCR) 07/04/20 07/05/20 07/05/20 22:01 12:28 16:45 RBC MCH RDW Lymph % (Auto) [place] % (Auto) Lymph # (Auto) Seg Neutrophils % Seg Neutrophils # D-Dimer ABG pH ABG pO2 ABG HCO3 ABG O2 Saturation ABG Base Excess Oxyhemoglobin Sodium Potassium Chloride Carbon Dioxide BUN Glucose POC Glucose 143 H 113 H 186 H Hemoglobin A1c Ferritin Lactate Dehydrogenase Total Creatine Kinase C-Reactive Protein Total Protein Albumin Coronavirus (PCR) 07/05/20 07/06/20 07/06/20 21:53 11:49 18:52 RBC MCH RDW Lymph % (Auto) [place] % (Auto) Lymph # (Auto) Seg Neutrophils % Seg Neutrophils # D-Dimer ABG pH ABG pO2 ABG HCO3 ABG O2 Saturation ABG Base Excess Oxyhemoglobin Sodium Potassium Chloride Carbon Dioxide BUN Glucose POC Glucose 167 H 106 H 235 H Hemoglobin A1c Ferritin Lactate Dehydrogenase Total Creatine Kinase C-Reactive Protein Total Protein Albumin Coronavirus (PCR) 07/06/20 07/07/20 07/07/20 22:24 05:19 11:09 RBC MCH RDW Lymph % (Auto) [place] % (Auto) Lymph # (Auto) Seg Neutrophils % Seg Neutrophils # D-Dimer ABG pH ABG pO2 ABG HCO3 ABG O2 Saturation ABG Base Excess Oxyhemoglobin Sodium Potassium Chloride Carbon Dioxide 31 H BUN Glucose 122 H POC Glucose 201 H 132 H Hemoglobin A1c Ferritin Lactate Dehydrogenase Total Creatine Kinase C-Reactive Protein Total Protein Albumin 3.2 L Coronavirus (PCR) 07/07/20 07/07/20 07/08/20 16:03 21:00 05:16 RBC MCH RDW Lymph % (Auto) [place] % (Auto) Lymph # (Auto) Seg Neutrophils % Seg Neutrophils # D-Dimer ABG pH ABG pO2 ABG HCO3 ABG O2 Saturation ABG Base Excess Oxyhemoglobin Sodium Potassium Chloride Carbon Dioxide 31 H BUN Glucose 112 H POC Glucose 162 H 238 H Hemoglobin A1c Ferritin Lactate Dehydrogenase Total Creatine Kinase C-Reactive Protein Total Protein Albumin 3.2 L Coronavirus (PCR) 07/08/20 07/08/20 07/08/20 11:51 15:03 15:03 RBC MCH RDW Lymph % (Auto) [place] % (Auto) Lymph # (Auto) Seg Neutrophils % Seg Neutrophils # D-Dimer 801.22 H ABG pH ABG pO2 ABG HCO3 ABG O2 Saturation ABG Base Excess Oxyhemoglobin Sodium Potassium Chloride Carbon Dioxide BUN Glucose POC Glucose 121 H Hemoglobin A1c Ferritin 1359.0 H Lactate Dehydrogenase Total Creatine Kinase C-Reactive Protein Total Protein Albumin Coronavirus (PCR) 07/08/20 07/08/20 07/08/20 15:03 16:55 16:59 RBC MCH RDW Lymph % (Auto) [place] % (Auto) Lymph # (Auto) Seg Neutrophils % Seg Neutrophils # D-Dimer ABG pH ABG pO2 ABG HCO3 ABG O2 Saturation ABG Base Excess Oxyhemoglobin Sodium Potassium Chloride Carbon Dioxide BUN Glucose POC Glucose 241 H Hemoglobin A1c 7.2 H Ferritin Lactate Dehydrogenase 384 H Total Creatine Kinase C-Reactive Protein 5.10 H Total Protein Albumin Coronavirus (PCR) 07/08/20 07/09/20 07/09/20 22:20 11:04 16:41 RBC MCH RDW Lymph % (Auto) [place] % (Auto) Lymph # (Auto) Seg Neutrophils % Seg Neutrophils # D-Dimer ABG pH ABG pO2 ABG HCO3 ABG O2 Saturation ABG Base Excess Oxyhemoglobin Sodium Potassium Chloride Carbon Dioxide BUN Glucose POC Glucose 169 H 140 H 281 H Hemoglobin A1c Ferritin Lactate Dehydrogenase Total Creatine Kinase C-Reactive Protein Total Protein Albumin Coronavirus (PCR) 07/09/20 07/10/20 07/10/20 22:17 08:14 11:34 RBC MCH RDW Lymph % (Auto) [place] % (Auto) Lymph # (Auto) Seg Neutrophils % Seg Neutrophils # D-Dimer ABG pH ABG pO2 ABG HCO3 ABG O2 Saturation ABG Base Excess Oxyhemoglobin Sodium Potassium Chloride Carbon Dioxide BUN Glucose POC Glucose 291 H 153 H 310 H Hemoglobin A1c Ferritin Lactate Dehydrogenase Total Creatine Kinase C-Reactive Protein Total Protein Albumin Coronavirus (PCR) 07/10/20 07/10/20 07/11/20 17:22 21:44 07:42 RBC MCH RDW Lymph % (Auto) [place] % (Auto) Lymph # (Auto) Seg Neutrophils % Seg Neutrophils # D-Dimer ABG pH ABG pO2 ABG HCO3 ABG O2 Saturation ABG Base Excess Oxyhemoglobin Sodium Potassium Chloride Carbon Dioxide BUN Glucose POC Glucose 191 H 283 H 187 H Hemoglobin A1c Ferritin Lactate Dehydrogenase Total Creatine Kinase C-Reactive Protein Total Protein Albumin Coronavirus (PCR) 07/11/20 07/11/20 07/11/20 11:48 17:38 21:15 RBC MCH RDW Lymph % (Auto) [place] % (Auto) Lymph # (Auto) Seg Neutrophils % Seg Neutrophils # D-Dimer ABG pH ABG pO2 ABG HCO3 ABG O2 Saturation ABG Base Excess Oxyhemoglobin Sodium Potassium Chloride Carbon Dioxide BUN Glucose POC Glucose 323 H 341 H 340 H Hemoglobin A1c Ferritin Lactate Dehydrogenase Total Creatine Kinase C-Reactive Protein Total Protein Albumin Coronavirus (PCR) 07/12/20 07/12/20 07/12/20 05:00 07:51 11:46 RBC MCH RDW Lymph % (Auto) [place] % (Auto) Lymph # (Auto) Seg Neutrophils % Seg Neutrophils # D-Dimer ABG pH ABG pO2 ABG HCO3 ABG O2 Saturation ABG Base Excess Oxyhemoglobin Sodium 132 L Potassium Chloride 94.0 L Carbon Dioxide BUN 20 H Glucose 254 H POC Glucose 238 H 323 H Hemoglobin A1c Ferritin Lactate Dehydrogenase Total Creatine Kinase C-Reactive Protein Total Protein Albumin Coronavirus (PCR) 07/12/20 07/12/20 07/13/20 17:21 21:26 08:31 RBC MCH RDW Lymph % (Auto) [place] % (Auto) Lymph # (Auto) Seg Neutrophils % Seg Neutrophils # D-Dimer ABG pH ABG pO2 ABG HCO3 ABG O2 Saturation ABG Base Excess Oxyhemoglobin Sodium Potassium Chloride Carbon Dioxide BUN Glucose POC Glucose 333 H 399 H 290 H Hemoglobin A1c Ferritin Lactate Dehydrogenase Total Creatine Kinase C-Reactive Protein Total Protein Albumin Coronavirus (PCR) 07/13/20 07/13/20 07/13/20 11:51 17:30 21:13 RBC MCH RDW Lymph % (Auto) [place] % (Auto) Lymph # (Auto) Seg Neutrophils % Seg Neutrophils # D-Dimer ABG pH ABG pO2 ABG HCO3 ABG O2 Saturation ABG Base Excess Oxyhemoglobin Sodium Potassium Chloride Carbon Dioxide BUN Glucose POC Glucose 357 H 254 H 301 H Hemoglobin A1c Ferritin Lactate Dehydrogenase Total Creatine Kinase C-Reactive Protein Total Protein Albumin Coronavirus (PCR) 07/14/20 07/14/20 07/14/20 08:44 11:53 16:57 RBC MCH RDW Lymph % (Auto) [place] % (Auto) Lymph # (Auto) Seg Neutrophils % Seg Neutrophils # D-Dimer ABG pH ABG pO2 ABG HCO3 ABG O2 Saturation ABG Base Excess Oxyhemoglobin Sodium Potassium Chloride Carbon Dioxide BUN Glucose POC Glucose 266 H 321 H 348 H Hemoglobin A1c Ferritin Lactate Dehydrogenase Total Creatine Kinase C-Reactive Protein Total Protein Albumin Coronavirus (PCR) 07/14/20 07/15/20 07/15/20 21:50 00:43 05:52 RBC 5.25 H MCH 25 L RDW 16.5 H Lymph % (Auto) 11.3 L [place] % (Auto) Lymph # (Auto) 1.1 L Seg Neutrophils % 82.8 H Seg Neutrophils # 8.0 H D-Dimer ABG pH ABG pO2 ABG HCO3 ABG O2 Saturation ABG Base Excess Oxyhemoglobin Sodium Potassium Chloride Carbon Dioxide BUN Glucose POC Glucose 399 H 257 H Hemoglobin A1c Ferritin Lactate Dehydrogenase Total Creatine Kinase C-Reactive Protein Total Protein Albumin Coronavirus (PCR) 07/15/20 07/15/20 07/15/20 05:52 07:26 11:27 RBC MCH RDW Lymph % (Auto) [place] % (Auto) Lymph # (Auto) Seg Neutrophils % Seg Neutrophils # D-Dimer ABG pH ABG pO2 ABG HCO3 ABG O2 Saturation ABG Base Excess Oxyhemoglobin Sodium 134 L Potassium 6.0 H D Chloride 94.6 L Carbon Dioxide 34 H BUN 22 H Glucose 290 H POC Glucose 269 H 360 H Hemoglobin A1c Ferritin Lactate Dehydrogenase Total Creatine Kinase C-Reactive Protein Total Protein 5.8 L Albumin 3.2 L Coronavirus (PCR) 07/15/20 07/15/20 07/16/20 16:11 21:18 10:38 RBC MCH RDW Lymph % (Auto) [place] % (Auto) Lymph # (Auto) Seg Neutrophils % Seg Neutrophils # D-Dimer ABG pH ABG pO2 ABG HCO3 ABG O2 Saturation ABG Base Excess Oxyhemoglobin Sodium Potassium Chloride Carbon Dioxide BUN Glucose POC Glucose 344 H 359 H 354 H Hemoglobin A1c Ferritin Lactate Dehydrogenase Total Creatine Kinase C-Reactive Protein Total Protein Albumin Coronavirus (PCR) 07/16/20 07/16/20 07/17/20 12:03 16:50 08:08 RBC MCH RDW Lymph % (Auto) [place] % (Auto) Lymph # (Auto) Seg Neutrophils % Seg Neutrophils # D-Dimer ABG pH ABG pO2 ABG HCO3 ABG O2 Saturation ABG Base Excess Oxyhemoglobin Sodium Potassium Chloride Carbon Dioxide BUN Glucose POC Glucose 354 H 193 H 133 H Hemoglobin A1c Ferritin Lactate Dehydrogenase Total Creatine Kinase C-Reactive Protein Total Protein Albumin Coronavirus (PCR) 07/17/20 07/17/20 07/17/20 09:23 09:23 11:47 RBC 5.31 H MCH 26 L RDW 16.9 H Lymph % (Auto) [place] % (Auto) 9.8 H Lymph # (Auto) Seg Neutrophils % Seg Neutrophils # D-Dimer ABG pH ABG pO2 ABG HCO3 ABG O2 Saturation ABG Base Excess Oxyhemoglobin Sodium Potassium 5.1 H Chloride Carbon Dioxide BUN 26 H Glucose 184 H POC Glucose 176 H Hemoglobin A1c Ferritin Lactate Dehydrogenase Total Creatine Kinase C-Reactive Protein Total Protein Albumin Coronavirus (PCR)
--- NOTE | 2020-07-17 13:51 | Discharge Summary ---
Providers - Providers Date of Admission: 07/03/20 03:54 Date of discharge: 07/17/20 Attending physician: KRISTOPHER DUEÑAS 07/03/20 03:53 Consult to Dietitian/Nutrition [CONS] Routine Physician Instructions: Reason For Exam: Reason for Consult: Diet education 07/08/20 14:57 Consult to Physician [CONS] Routine Comment: Consulting Provider: RYANNE VOGT Physician Instructions: Reason For Exam: Covid positive, hypoxia 07/14/20 18:00 Consult to Wound/ET Nurse [CONS] Routine Reason For Exam: wound eval Primary care physician: CLINICAL SERVICES CONSULTANT Hospitalization Condition: Fair Hospital course: Subjective Date of service: 07/17/20 Principal diagnosis: COVID-19 pneumonia Interval history: 39-year-old -Citizen Of [place] female with known history of diabetes mellitus, hypertension and COPD presenting to the emergency room today complaining of shortness of breath which has been ongoing for about 6 days. Shortness of breath is said to worsen with activity. Patient indicates that she had some low-grade fever with chills initially which has since subsided. She denies any chest pain, no headache or dizziness, no diaphoresis, no nausea vomiting, no abdominal pain, no diarrhea, no hematuria or dysuria. Patient denies any sick contacts and no recent travel. Denies any contact with anyone with COVID-19. Patient was tachycardic, tachypneic and slightly hypoxic on minimal exertion upon arrival in the emergency room. Work-up today reveals right lower lobe pneumonia on the chest x-ray. Patient is being admitted for pneumonia. We will also rule out for COVID-19. Patient is morbidly obese , severe COVID-19 sepsis ,critically ill In severe distress requiring high flow oxygen, very poor prognosis 07/04-patient was on CPAP last night. Now weaned down to 6 L of O2. We closely monitor patient's oxygen saturations with 6 L. Otherwise patient resting comfortably now in bed in prone position. -patient appears to be doing worse than yesterday. Still able to wean down to 6 L however patient became more hypoxic. Overall conditions of morbid obesity, sleep apnea, obesity hypoventilation syndrome. Place patient at extreme risk. Patient is aware of evaluation all questions and concerns answered. Patient will require oxygen upon discharge. History patient was complained of shortness of breath even prior to Covid. Will most likely require home O2 prior to developing Covid. 07/10/2020; patient morbidly obese remains on high flow oxygen, 30 L/100/95% Continuously on high flow oxygen, very poor prognosis, no beds available in ICU for close monitoring Strictly informed the patient not to remove the oxygen Patient is critically ill with continuous requirement of high flow oxygen Multiple comorbidities, very poor prognosis 07/11/2020 two 07/14/2020 On high flow oxygen No improvement in symptoms 07/15/2020 On 6 L nasal cannula oxygen 07/16/20 On 2 liters 07/17/20 Patient has home oxygen Assessment and Plan Assessment and plan: History of obstructive sleep apnea/on CPAP at night, noncompliant Covid positive test; 07/03/2020 Doing well on room air 92% on ambulation 90% -- Pneumonia due to COVID-19 virus Current Visit: Yes Status: Acute Plan to address problem: Continue dexamethasone for 10 days total --Severe sepsis secondary to Covid pneumonia Current Visit: Yes Status: Acute . Plan to address problem: Improved --Type II diabetes mellitus Current Visit: Yes Status: Acute . Plan to address problem: Hypoglycemics adjusted -- Hypertension Current Visit: Yes Status: Acute Plan to address problem: Blood pressure controlled --DVT prophylaxis Current Visit: Yes Status: Acute Plan to address problem: Currently on Lovenox. -- Full code status Current Visit: Yes Status: Acute --Morbid obesity (BMI 48.9) Current Visit: Yes Status: Acute Plan to address problem: This increases risk from COVID-19 pneumonia and COVID-19 itself. Patient educated on lifestyle changes upon discharge. Plan of care reviewed with the patient and her nurse Patient to follow-up with bariatric surgery as outpatient Disposition: DC-01 TO HOME OR SELFCARE - Discharge Diagnoses (1) Acute respiratory failure due to COVID-19 Status: Acute (2) Acute respiratory failure with hypoxia Status: Acute (3) DVT prophylaxis Status: Acute (4) Diabetes mellitus Status: Acute (5) Hypertension Status: Acute (6) Obesity (BMI 30-39.9) Status: Acute (7) Pneumonia due to COVID-19 virus Status: Acute Core Measure Documentation - Palliative Care Palliative Care/ Comfort Measures: Not Applicable - Core Measures Any of the following diagnoses?: none Exam - Constitutional Vitals: Temp Pulse Resp BP Pulse Ox 98.8 F 117 H 18 117/76 94 07/17/20 04:58 07/17/20 10:30 07/17/20 10:30 07/17/20 04:58 07/17/20 11:39 General appearance: Present: no acute distress, well-nourished - EENT Eyes: Present: PERRL ENT: hearing intact, clear oral mucosa - Neck Neck: Present: supple, normal ROM - Respiratory Respiratory effort: normal Respiratory: bilateral: CTA - Cardiovascular Heart rate: 78 Rhythm: regular Heart Sounds: Present: S1 & S2. Absent: rub, click - Extremities Extremities: pulses symmetrical, No edema Peripheral Pulses: within normal limits - Abdominal General gastrointestinal: Present: soft, non-tender, non-distended, normal bowel sounds Female genitourinary: Present: normal - Rectal Rectal Exam: deferred - Integumentary Integumentary: Present: clear, warm, dry - Musculoskeletal Musculoskeletal: gait normal, strength equal bilaterally - Psychiatric Psychiatric: appropriate mood/affect, intact judgment & insight - Neurologic Neurologic: CNII-XII intact, moves all extremities - Allied Health Allied health notes reviewed: nursing, case management Plan Activity: no restrictions Diet: diabetic Follow up with: PRIMARY CARE, [Primary Care Provider] - 3-5 Days
[2020-07-17 14:19] VITALS: BP 93/49
== END 2020-07-17 18:00 | disposition home or self-care (01) | DRG 871 ==
LOC: ED 19:34 → 3A 07-03 03:54
PROVIDERS: ADMIT Internal Medicine Geriatric Medicine; ATTEND Internal Medicine
PROC: 5A09357 Assistance with Respiratory Ventilation, Less than 24 Consecutive Hours, Continuous Positive Airway Pressure (ICD-10-PCS; principal; 2020-07-04)
PROC: XW033E5 Introduction of Remdesivir Anti-infective into Peripheral Vein, Percutaneous Approach, New Technology Group 5 (ICD-10-PCS; 2020-07-04)
PROC: 5A09357 Assistance with Respiratory Ventilation, Less than 24 Consecutive Hours, Continuous Positive Airway Pressure (ICD-10-PCS; 2020-07-05)
PROC: 5A09357 Assistance with Respiratory Ventilation, Less than 24 Consecutive Hours, Continuous Positive Airway Pressure (ICD-10-PCS; 2020-07-06)
PROC: 5A09357 Assistance with Respiratory Ventilation, Less than 24 Consecutive Hours, Continuous Positive Airway Pressure (ICD-10-PCS; 2020-07-07)
PROC: 5A09357 Assistance with Respiratory Ventilation, Less than 24 Consecutive Hours, Continuous Positive Airway Pressure (ICD-10-PCS; 2020-07-08)
PROC: 5A09357 Assistance with Respiratory Ventilation, Less than 24 Consecutive Hours, Continuous Positive Airway Pressure (ICD-10-PCS; 2020-07-09)
PROC: 5A09357 Assistance with Respiratory Ventilation, Less than 24 Consecutive Hours, Continuous Positive Airway Pressure (ICD-10-PCS; 2020-07-10)
PROC: 5A09357 Assistance with Respiratory Ventilation, Less than 24 Consecutive Hours, Continuous Positive Airway Pressure (ICD-10-PCS; 2020-07-11)
PROC: 5A09357 Assistance with Respiratory Ventilation, Less than 24 Consecutive Hours, Continuous Positive Airway Pressure (ICD-10-PCS; 2020-07-12)
PROC: 5A09357 Assistance with Respiratory Ventilation, Less than 24 Consecutive Hours, Continuous Positive Airway Pressure (ICD-10-PCS; 2020-07-13)
PROC: 5A09357 Assistance with Respiratory Ventilation, Less than 24 Consecutive Hours, Continuous Positive Airway Pressure (ICD-10-PCS; 2020-07-14)
PROC: 5A09357 Assistance with Respiratory Ventilation, Less than 24 Consecutive Hours, Continuous Positive Airway Pressure (ICD-10-PCS; 2020-07-15)
PROC: 5A09357 Assistance with Respiratory Ventilation, Less than 24 Consecutive Hours, Continuous Positive Airway Pressure (ICD-10-PCS; 2020-07-17)
DX: A41.89 Other specified sepsis (principal); U07.1 COVID-19; J96.01 Acute respiratory failure with hypoxia; J12.82 Pneumonia due to coronavirus disease 2019; Z68.42 Body mass index [BMI] 45.0-49.9, adult; G47.33 Obstructive sleep apnea (adult) (pediatric); E11.9 Type 2 diabetes mellitus without complications; R65.20 Severe sepsis without septic shock; E66.01 Morbid (severe) obesity due to excess calories; Z71.3 Dietary counseling and surveillance; Z87.891 Personal history of nicotine dependence; Z98.51 Tubal ligation status; Z79.84 Long term (current) use of oral hypoglycemic drugs
CPT/HCPCS: 36415; 71046; 80048; 80053; 81001; 82550; 82728; 82803; 82947; 82962; 83036; 83520; 83615; 83735; 84145; 85025; 85379; 86140; 93005; 94640; 94660; 94760; G0378; J0456; J0696; J1100; J1650; J1815; J1940; J2920; J2930; J7030; J7050; J8540; U0003